=== PATIENT | female | born 1970 | race Caucasian/White ===

== ENCOUNTER 2016-06-09 11:07 | Emergency (ER) | payer BC, OTHER ==
[~2016-06-09] VITALS: Ht 167.6 cm; Wt 87.3 kg
[~2016-06-09 11:07] MED LIST: ALPR-411 PO; ASTN NAE; BUDE32SU3 NAE; BUTA1CAP17 PO; FLAX1CAP11 PO; MELATAB2 PO; MISCCAP80 PO; OMEG10007 PO
[2016-06-09 11:10] VITALS: TEMP 36.4; Ht 167.6 cm; Wt 87.3 kg
[2016-06-09] MEDS ORDERED: MoRPHine SULFATE 4 MG/ML 1 ML CARP\\VIAL IV STA ×4 (12:00→19:55)
[2016-06-09] MEDS ORDERED: SODIUM CHLORIDE 0.9% 1000ML 1,000 ML IV STA ×2 (12:00→16:23)
[2016-06-09] MEDS ORDERED: ONDANSETRON INJ 2 MG/ML 2 ML VIAL IV STA ×2 (12:00→15:02)
[2016-06-09] MEDS ORDERED: ZFR4 PO (12:03)
--- NOTE | 2016-06-09 12:07 | EMERGENCY ROOM VISIT NOTE ---
History First contact with patient: 11:51 Chief Complaint: VOMITING Stated Complaint: VOMITING RECENT SURG. AT [facility] Nursing Triage Summary: pt went for surgey in [place] had gallbladder, bowel reseection with ileostomy. given pain med made her really sick since unable to keep anything down, feels nauseated, sent here for eval of dehydration and possible blockage History of Present Illness The patient is a 46 year old female who presents to the Emergency Room with complaints of abdominal pain and vomiting. The patient states that 5 days ago she underwent elective surgery. The patient was planned to have laparoscopic colon resection for diverticulitis and cholecystectomy. She states that it turned into an open surgery. The patient states that she was discharged 2 days ago. The surgery was performed by Dr. bundy at [facility] in [place]. The patient states that she has had pain and has not been able to take her medication since 2:00 yesterday. She states that she is vomiting and cannot keep anything down. The patient reports diffuse abdominal discomfort and rates her pain a 9/10. She denies any fevers but describes hot flashes which she attributes to menopause. She denies any pain in her chest or trouble breathing. She denies any urinary symptoms. She has noticed increased output into the ileostomy and into the bulb from the drainage tube. Review of Systems A 10 system review of systems was completed with positives and pertinent negatives listed in the HPI. Past Medical/Surgical History Medical Problems: (1) Acute diverticulitis (2) DVT (deep venous thrombosis) (3) Dysfunctional uterine bleeding (4) Endometriosis (5) Gallstones (6) Ovarian cyst (7) Pyelonephritis Surgical Problems: (1) Status post partial hysterectomy Family History Cancer Diabetes mellitus Hypertension Social History Smoking Status: Never Smoker Alcohol Use: occasionally Marital Status: single Occupation Status: employed Current/Historical Medications Scheduled Azelastine Hcl (Astelin Nasal [place]), 1-2 SPRAYS DEVON BID Budesonide (Nasal) (Budesonide Nasal [place]), 1 SPRAY DEVON BID Fish Oil ([place]-3), 1 CAP PO DAILY Flaxseed (Linseed) (Flax Seed Oil), 1 CAP PO DAILY Melatonin (Melatonin Maximum Strengt), 5 MG PO HS Probiotic Product (Probiotic), 1 CAP PO BID Scheduled PRN Alprazolam (Xanax), 0.25 MG PO DAILY PRN for Anxiety Wxoucbscke-Lmxomfvejmuix-Pnbeu (Fioricet), 1-2 CAP PO Q4H PRN for Migraine Ondansetron (Ondansetron HCl), 4 MG PO Q6H PRN for Nausea Allergies Coded Allergies: Oxycodone (Unverified Adverse Reaction, Severe, UPSET STOMACH, 06/09/16) Physical Exam Vital Signs Date Time Temp Pulse Resp B/P Pulse Ox O2 Delivery O2 Flow Rate FiO2 06/09/16 20:04 102 18 152/92 96 Room Air 06/09/16 18:37 107 20 138/96 98 Room Air 06/09/16 17:36 103 18 146/94 96 Room Air 06/09/16 16:06 103 16 139/99 99 Room Air 06/09/16 14:40 86 18 142/100 96 Room Air 06/09/16 13:21 86 18 133/97 99 Room Air 06/09/16 11:10 36.4 65 18 142/73 96 Room Air Physical Exam VITALS: Vitals are noted on the nurse's note and reviewed by myself. Vital signs stable. The patient is afebrile. GENERAL: This is a 46-year-old female, in no acute distress, nondiaphoretic, well-developed well-nourished. SKIN: There is no tenting of the skin. Capillary reflex less than 2 seconds. HEAD: Normocephalic atraumatic. EARS: The external ears are normal in appearance EYES: Pupils equal round and reactive to light and accommodation. Conjunctivae without injection, sclerae without icterus. Extraocular movements intact. NOSE: Patent, turbinates without inflammation or discharge. MOUTH: Mucous membranes moist. Tonsils are not enlarged. Pharynx without erythema or exudate. Uvula midline. Airway patent. Tongue does not deviate. NECK: Supple without nuchal rigidity. No JVD. HEART: Regular rate and rhythm without murmurs gallops or rubs. LUNGS: Clear to auscultation bilaterally without wheezes, rales or rhonchi. No retractions or accessory muscle use. ABDOMEN: There are surgical incisions to the abdomen. There is a midline vertical incision as well as smaller port incisions. Thee are in place in the wound edges are well approximated without erythema, warmth or drainage. There is an ileostomy without significant erythema, warmth or purulent drainage. There is a drainage tube in the left abdomen with serosanguineous drainage in the bulb. Bowel sounds are present 4 quadrants but are slightly hypoactive in the right upper quadrant. The patient has diffuse abdominal tenderness on examination. MUSCULOSKELETAL: No muscle atrophy, erythema, or edema noted. Full range of motion in all extremities. Strength 5/5 throughout. NEURO: Patient was alert and oriented to person place and time. No focal neurological deficits. Medical Decision & Procedures ER Provider Diagnostic Interpretation: CT SCAN OF THE ABDOMEN AND PELVIS WITH IV CONTRAST CLINICAL HISTORY: Generalized abdominal pain. Recent surgery. COMPARISON STUDY: Abdominal CT dated 12/24/2015. TECHNIQUE: Following the IV administration of 92 cc of Optiray 320, CT scan of the abdomen and pelvis is performed from the lung bases to the proximal femora. Images are reviewed in the axial, sagittal, and coronal planes. IV contrast was administered without complication. Automated dose control exposure was utilized. CT DOSE: 584.06 mGy.cm FINDINGS: Lung bases: The heart is normal in size and without pericardial effusion. Linear atelectasis is present at both lung bases. No airspace consolidation is identified typical for pneumonia and there is no pleural effusion. Bilateral breast implants are partially visualized. Liver: The contrast-enhanced liver is enlarged, measuring 19.3 cm in length. The liver demonstrates diminished attenuation consistent with hepatic steatosis. There is no intrahepatic biliary ductal dilatation. The hepatic veins and portal veins are patent. Gallbladder: Surgically absent noting clips in the gallbladder fossa. Trace fluid and stranding is noted in the gallbladder fossa. No organized fluid collection is identified. Spleen: Normal in size and attenuation. Pancreas: Atrophic for age. Adrenal glands: Unremarkable. Kidneys: The contrast enhanced kidneys are normal in size and without hydronephrosis. The kidneys enhance symmetrically. Abdominal vasculature: The abdominal aorta is normal in course and caliber noting scattered foci of atherosclerotic calcification. Bowel: There are postoperative changes from sigmoid colon resection with colocolonic anastomosis. There is a new ostomy in the right lower quadrant. Herniated parastomal fat is identified. The distal ileum and colon are decompressed, and likely extends to the ostomy is a mucous fistula. The proximal small bowel loops are distended and fluid-filled measuring up to 3.7 cm in diameter. The appearance is consistent with a high-grade small bowel obstruction. There is obstruction at the level of the ostomy. There is also an apparent transition point is the left midabdomen on image #251. The appearance is highly concerning for a closed loop obstruction. Trace interloop fluid is noted. No focally thick walled bowel loops are identified. There is no pneumatosis intestinalis or portal venous gas. There is mild diverticulosis of the remaining colon without CT evidence of acute diverticulitis. The appendix is surgically absent. Peritoneum: A peritoneal drain is cough and pelvis from a left ventral pelvic approach. No definite intraperitoneal free air is seen. Mild mesenteric edema is noted in the pelvis. There is a midline surgical incision with skin clips. A previous ostomy site is identified in the right lower quadrant. Foci of gas with stranding stranding in the subcutaneous soft tissues along the right abdominal wall are likely related to recent surgery. Lymphadenopathy: None. Pelvic viscera: Partially decompressed bladder is grossly normal as visualized. The uterus is surgically absent. Bilateral ovarian follicles are noted. Skeletal structures: No lytic or blastic lesions are seen. There is mild lumbosacral spondylosis and scoliosis. Sclerotic changes are noted involving the sacroiliac joints. IMPRESSION: 1. There are postoperative changes from interval cholecystectomy and additional colonic resection with right lower quadrant ostomy as compared 12/24/2015. A surgical drain is present in the pelvis. 2. Findings are consistent with high-grade small bowel obstruction. There is herniated parastomal fat, with obstruction at the level of the ostomy. An additional transition point is identified in the left midabdomen and the appearance is highly concerning for a closed loop obstruction. Surgical consultation is advised. 3. There is trace interloop fluid. No thick walled bowel loops are identified, and there is no pneumatosis intestinalis, portal venous gas, or intraperitoneal free air seen. 4. There is trace fluid and stranding seen in the gallbladder fossa, likely related to recent surgery. No organized fluid collection is identified. 5. Hepatomegaly and hepatic steatosis. 6. Additional findings as above. ABDOMEN 2VIEW W/PA CHEST RTN CLINICAL HISTORY: abdominal pain, recent surgery pain. Nausea. COMPARISON STUDY: 03/15/2016 FINDINGS: Mild bibasilar atelectasis. Lungs otherwise are clear. Diaphragms are smooth. Postoperative changes are identified in the midline of the pelvis. Appears be right-sided ostomy. 3 drainage catheter overlying the mid sacral region. IMPRESSION: 1. Postoperative ileus versus partial distal small bowel obstruction. 2. Operative changes to the pelvic region centrally. 3. Mild right basilar pulmonary atelectasis Laboratory Results 06/09/16 11:50 Red Blood Count 4.82, Mean Corpuscular Volume 87.6, Mean Corpuscular Hemoglobin 30.1, Mean Corpuscular Hemoglobin Concent 34.4, Mean Platelet Volume 9.2, Neutrophils (%) (Auto) 60.5, Lymphocytes (%) (Auto) 21.6, Monocytes (%) (Auto) 10.8, Eosinophils (%) (Auto) 6.4, Basophils (%) (Auto) 0.3, Neutrophils # (Auto ) 6.54, Lymphocytes # (Auto) 2.33, Monocytes # (Auto) 1.17, Eosinophils # (Auto ) 0.69, Basophils # (Auto) 0.03 06/09/16 11:50 Test 06/09/16 11:50 06/09/16 12:25 06/09/16 14:00 White Blood Count 10.80 K/uL (4.8-10.8) Red Blood Count 4.82 M/uL (4.2-5.4) Hemoglobin 14.5 g/dL (12.0-16.0) Hematocrit 42.2 % (37-47) Mean Corpuscular Volume 87.6 fL (80-100) Mean Corpuscular Hemoglobin 30.1 pg (25-34) Mean Corpuscular Hemoglobin Concent 34.4 g/dl (32-36) Platelet Count 451 K/uL (130-400) Mean Platelet Volume 9.2 fL (7.4-10.4) Neutrophils (%) (Auto) 60.5 % Lymphocytes (%) (Auto) 21.6 % Monocytes (%) (Auto) 10.8 % Eosinophils (%) (Auto) 6.4 % Basophils (%) (Auto) 0.3 % Neutrophils # (Auto) 6.54 K/uL (1.4-6.5) Lymphocytes # (Auto) 2.33 K/uL (1.2-3.4) Monocytes # (Auto) 1.17 K/uL (0.11-0.59) Eosinophils # (Auto) 0.69 K/uL (0-0.5) Basophils # (Auto) 0.03 K/uL (0-0.2) RDW Standard Deviation 40.6 fL (36.4-46.3) RDW Coefficient of Variation 12.5 % (11.5-14.5) Immature Granulocyte % (Auto) 0.4 % Immature Granulocyte # (Auto) 0.04 K/uL (0.00-0.02) Prothrombin Time 10.6 SECONDS (9.0-12.0) Prothromb Time International Ratio 1.0 (0.9-1.1) Activated Partial Thromboplast Time 27.8 SECONDS (21.0-31.0) Partial Thromboplastin Ratio 1.1 Anion Gap 11.0 mmol/L (3-11) Est Creatinine Clear Calc Drug Dose 77.4 ml/min Estimated GFR () 77.7 Estimated GFR (Non- 67.0 BUN/Creatinine Ratio 11.2 (10-20) Calcium Level 10.5 mg/dl (8.5-10.1) Total Bilirubin 0.7 mg/dl (0.2-1) Aspartate Amino Transf (AST/SGOT) 63 U/L (15-37) Alanine Aminotransferase (ALT/SGPT) 101 U/L (12-78) Alkaline Phosphatase 103 U/L (45-117) Total Protein 7.7 gm/dl (6.4-8.2) Albumin 3.4 gm/dl (3.4-5.0) Globulin 4.3 gm/dl (2.5-4.0) Albumin/Globulin Ratio 0.8 (0.9-2) Lipase 92 U/L (73-393) Lactic Acid Level 1.6 mmol/L (0.4-2.0) Urine Color YELLOW Urine Appearance CLEAR (CLEAR) Urine pH 6.5 (4.5-7.5) Urine Specific [place] 1.000 (1.000-1.030) Urine Protein NEG (NEG) Urine Glucose (UA) NEG (NEG) Urine Ketones NEG (NEG) Urine Occult Blood NEG (NEG) Urine Nitrite NEG (NEG) Urine Bilirubin NEG (NEG) Urine Urobilinogen NEG (NEG) Urine Leukocyte Esterase NEG (NEG) Medications Administered Medications (Trade) Dose Ordered Sig/Nel Route Start Time Stop Time Status Last Admin Dose Admin Sodium Chloride (Nss 1000ml) 1,000 ml @ 999 mls/hr Q1H1M STAT IV 06/09/16 12:00 06/09/16 15:16 DC 1/30/17 12:03 999 MLS/HR Morphine Sulfate (MoRPHine SULFATE INJ) 4 mg NOW STAT IV 06/09/16 12:00 06/09/16 15:15 DC 06/09/16 12:10 4 MG Ondansetron HCl (Zofran Inj) 4 mg NOW STAT IV 06/09/16 12:00 06/09/16 15:15 DC 06/09/16 12:10 4 MG Morphine Sulfate (MoRPHine SULFATE INJ) 4 mg NOW STAT IV 06/09/16 15:02 06/09/16 15:19 DC 06/09/16 15:14 4 MG Ondansetron HCl (Zofran Inj) 4 mg NOW STAT IV 06/09/16 15:02 06/09/16 15:19 DC 06/09/16 15:13 4 MG Lorazepam 0.5 mg 0.5 mg NOW STAT IV 06/09/16 16:08 06/09/16 16:09 DC 06/09/16 16:15 0.5 MG Sodium Chloride (Nss 1000ml) 1,000 ml @ 999 mls/hr Q1H1M STAT IV 06/09/16 16:23 06/09/16 17:23 DC 06/09/16 17:15 999 MLS/HR Morphine Sulfate (MoRPHine SULFATE INJ) 4 mg NOW STAT IV 06/09/16 17:38 06/09/16 17:39 DC 06/09/16 17:51 4 MG Morphine Sulfate (MoRPHine SULFATE INJ) 4 mg NOW STAT IV 06/09/16 19:55 06/09/16 19:56 DC 06/09/16 20:02 4 MG ED Course The patient was seen and examined. Previous visits were reviewed. The patient does not have a fever or leukocytosis. She does not have any significant electrolyte abnormality. Lactic acid was not elevated. Lipase was not elevated. INR was 1.0. Urinalysis was negative. Plain films of the abdomen suggests ileus versus partial small bowel obstruction CT scan of the abdomen and pelvis with IV contrast and a small amount of oral contrast (as much as the patient could tolerate) was obtained and reveals high- grade bowel obstruction as above The patient was hydrated with normal saline 2 L She was given a total of 4 doses of 4 mg IV morphine She was given a total of 2 doses of 0.5 mg IV Ativan She was given 2 doses of 4 mg IV Zofran I discussed the case with Dr. Gracia of general surgery at [facility]. She accepts the patient in transfer. We are waiting on a bed assignment. She also asked that the CT scan be uploaded to the [employer] system. I discussed this with the oil burner technician who referred me to the secretaries. I discussed this with the front office secretary who stated she would upload the CT scan. I again spoke with Dr. Gracia who called back to discuss the patient. She recommends attempting to pass a red rubber catheter through the stoma to help decompress at this end. I discussed this with my attending physician; we felt slightly uncomfortable with this procedure. I again called Dr. Gracia who requested that the decompression be attempted and she also spoke with Dr. Queen. At this time, I planned to attempt to pass the catheter as discussed. I gathered all of the materials and discussed this with the patient. At this time, the patient is hesitant and does not want me to remove the ostomy bag. She is concerned that we will not be able to get the ostomy bag back on in the proper position. She refuses to allow me to remove it and does not want me to attempt to pass the catheter through it. I advised her that Gen. surgery at [facility] would like this to be attempted but she again is hesitant and would prefer to wait until she got to [facility]. At this time, EMS has arrived to take the patient to [place]. The case was discussed with Dr. Queen who agrees with the assessment and treatment plan Medical Decision DIFFERENTIAL DIAGNOSIS: Hepatitis, cholecystitis, cholangitis, biliary colic, pancreatitis, pneumonia, subdiaphragmatic abscess, appendicitis, inguinal hernia , nephrolithiasis, inflammatory bowel disease, mesenteric adenitis, peptic ulcer disease, GERD, gastritis, pancreatitis, myocardial infarction, pericarditis, ruptured aortic aneurysm, appendicitis, gastroenteritis, bowel obstruction, splenic infarct, diverticulitis, mesenteric ischemia, metabolic, peritonitis, among others. [place] Drug Monitoring Program Search Results: patient reviewed within database, no issues identified Impression Primary Impression: Postoperative intestinal obstruction Departure Information Referrals Vannesa Jonas DO (PCP) Patient Instructions [facility]
[2016-06-09 12:12] LABS: BASO % 0.3 %; BASO ABS # 0.03 K/uL (0-0.2); COMPLETE YES; EOS % 6.4 %; HEMATOCRIT 42.2 % (37-47); IG% 0.4 %; LYMPH % 21.6 %; LYMPH ABS # 2.33 K/uL (1.2-3.4); MEAN CELL VOLUME 87.6 fL (80-100); MEAN CORPUSCULAR HEMOGLOBIN 30.1 pg (25-34); MEAN CORPUSCULAR HGB CONC 34.4 g/dl (32-36); MEAN PLATELET VOLUME 9.2 fL (7.4-10.4); MONO % 10.8 %; NEUT % 60.5 %; PLATELET COUNT 451 K/uL (130-400); RED BLOOD COUNT 4.82 M/uL (4.2-5.4)
[2016-06-09 12:22] LABS: PARTIAL THROMBOPLASTIN RATIO 1.1; PROTHROMBIN TIME (PATIENT) 10.6 SECONDS (9.0-12.0)
[2016-06-09 12:25] LABS: BUN/CREATININE RATIO 11.2 (10-20); CALCIUM 10.5 mg/dl (8.5-10.1); POTASSIUM 3.7 mmol/L (3.5-5.1)
[2016-06-09 12:28] LABS: ALB/GLOB RATIO 0.8 (0.9-2)
--- NOTE | 2016-06-09 12:40 | DIAGNOSTIC IMAGING REPORT ---
ABDOMEN 2VIEW W/PA CHEST RTN CLINICAL HISTORY: abdominal pain, recent surgery pain. Nausea. COMPARISON STUDY: 03/15/2016 FINDINGS: Mild bibasilar atelectasis. Lungs otherwise are clear. Diaphragms are smooth. Postoperative changes are identified in the midline of the pelvis. Appears be right-sided ostomy. 3 drainage catheter overlying the mid sacral region. IMPRESSION: 1. Postoperative ileus versus partial distal small bowel obstruction. 2. Operative changes to the pelvic region centrally. 3. Mild right basilar pulmonary atelectasis Electronically signed by: Rafael Stevens M.D. 06/09/2016 12:39 PM Dictated Date/Time: 06/09/2016 12:38 PM
[2016-06-09] MEDS ORDERED: OPTIRAY 320 IV PRN (12:45)
[2016-06-09 14:34] LABS: URINE APPEARANCE CLEAR (CLEAR); URINE BILIRUBIN NEG (NEG); URINE COLOR YELLOW; URINE NITRITE NEG (NEG); URINE PH 6.5 (4.5-7.5); UROBILINOGEN NEG (NEG); ZZUR CULT IF INDIC CLEAN CATCH NO
[2016-06-09 14:38] LABS: MANUAL MICROSCOPIC REQUIRED? NO; REVIEW REQ? NO
--- NOTE | 2016-06-09 15:25 | DIAGNOSTIC IMAGING REPORT ---
CT SCAN OF THE ABDOMEN AND PELVIS WITH IV CONTRAST CLINICAL HISTORY: Generalized abdominal pain. Recent surgery. COMPARISON STUDY: Abdominal CT dated 12/24/2015. TECHNIQUE: Following the IV administration of 92 cc of Optiray 320, CT scan of the abdomen and pelvis is performed from the lung bases to the proximal femora. Images are reviewed in the axial, sagittal, and coronal planes. IV contrast was administered without complication. Automated dose control exposure was utilized. CT DOSE: 584.06 mGy.cm FINDINGS: Lung bases: The heart is normal in size and without pericardial effusion. Linear atelectasis is present at both lung bases. No airspace consolidation is identified typical for pneumonia and there is no pleural effusion. Bilateral breast implants are partially visualized. Liver: The contrast-enhanced liver is enlarged, measuring 19.3 cm in length. The liver demonstrates diminished attenuation consistent with hepatic steatosis. There is no intrahepatic biliary ductal dilatation. The hepatic veins and portal veins are patent. Gallbladder: Surgically absent noting clips in the gallbladder fossa. Trace fluid and stranding is noted in the gallbladder fossa. No organized fluid collection is identified. Spleen: Normal in size and attenuation. Pancreas: Atrophic for age. Adrenal glands: Unremarkable. Kidneys: The contrast enhanced kidneys are normal in size and without hydronephrosis. The kidneys enhance symmetrically. Abdominal vasculature: The abdominal aorta is normal in course and caliber noting scattered foci of atherosclerotic calcification. Bowel: There are postoperative changes from sigmoid colon resection with colocolonic anastomosis. There is a new ostomy in the right lower quadrant. Herniated parastomal fat is identified. The distal ileum and colon are decompressed, and likely extends to the ostomy is a mucous fistula. The proximal small bowel loops are distended and fluid-filled measuring up to 3.7 cm in diameter. The appearance is consistent with a high-grade small bowel obstruction. There is obstruction at the level of the ostomy. There is also an apparent transition point is the left midabdomen on image #251. The appearance is highly concerning for a closed loop obstruction. Trace interloop fluid is noted. No focally thick walled bowel loops are identified. There is no pneumatosis intestinalis or portal venous gas. There is mild diverticulosis of the remaining colon without CT evidence of acute diverticulitis. The appendix is surgically absent. Peritoneum: A peritoneal drain is cough and pelvis from a left ventral pelvic approach. No definite intraperitoneal free air is seen. Mild mesenteric edema is noted in the pelvis. There is a midline surgical incision with skin clips. A previous ostomy site is identified in the right lower quadrant. Foci of gas with stranding stranding in the subcutaneous soft tissues along the right abdominal wall are likely related to recent surgery. Lymphadenopathy: None. Pelvic viscera: Partially decompressed bladder is grossly normal as visualized. The uterus is surgically absent. Bilateral ovarian follicles are noted. Skeletal structures: No lytic or blastic lesions are seen. There is mild lumbosacral spondylosis and scoliosis. Sclerotic changes are noted involving the sacroiliac joints. IMPRESSION: 1. There are postoperative changes from interval cholecystectomy and additional colonic resection with right lower quadrant ostomy as compared 12/24/2015. A surgical drain is present in the pelvis. 2. Findings are consistent with high-grade small bowel obstruction. There is herniated parastomal fat, with obstruction at the level of the ostomy. An additional transition point is identified in the left midabdomen and the appearance is highly concerning for a closed loop obstruction. Surgical consultation is advised. 3. There is trace interloop fluid. No thick walled bowel loops are identified, and there is no pneumatosis intestinalis, portal venous gas, or intraperitoneal free air seen. 4. There is trace fluid and stranding seen in the gallbladder fossa, likely related to recent surgery. No organized fluid collection is identified. 5. Hepatomegaly and hepatic steatosis. 6. Additional findings as above. Electronically signed by: Juan Sequeira M.D. 06/09/2016 3:23 PM Dictated Date/Time: 06/09/2016 3:00 PM
[2016-06-09] MEDS ORDERED: LORAZEPAM 2 MG/ML 1 ML VIAL IV STA ×2 (16:08→20:29)
[2016-06-09 21:00] VITALS: BP 124/84; PULSE 118; O2SAT 97
== END 2016-06-09 21:00 | disposition short-term general hospital (02) ==
LOC: C.EDB 11:09 → C.EDC 21:00
DX: K91.3 Postprocedural intestinal obstruction (principal); Z90.49 Acquired absence of other specified parts of digestive tract; Z87.19 Personal history of other diseases of the digestive system; Z93.2 Ileostomy status; Z86.718 Personal history of other venous thrombosis and embolism; Z83.3 Family history of diabetes mellitus; Z82.49 Family history of ischemic heart disease and other diseases of the circulatory system

== ENCOUNTER → 2017-02-03 | Outpatient (CLI) | payer OTHER ==
[~2017-02-03] MED LIST changes: +ACET650S10 PO; +ADAP0.1C5 TOP; +CLOT1CRE20 TOP; +DIPH25CA65 PO; +DOXY100C76 PO; +MULT-506 PO; +OPTIRAY 320 IV PRN; +OXYC-57 PO; +OXYCODONE/ACETAMINOPHEN 5-325 TAB ONE; +VENL150T33 PO; +ZFR4 PO
--- NOTE | 2017-02-03 07:22 | DIAGNOSTIC IMAGING REPORT ---
ABD/PELVIS IV AND ORAL CONT CT DOSE: 575.97 mGy.cm HISTORY: Pain. Hernia. R10.9 Abdominal painK46.9 Abdominal hernia TECHNIQUE: Multiaxial CT images of the abdomen and pelvis were performed following the use of intravenous and oral contrast. A dose lowering technique was utilized adhering to the principles of ALARA. COMPARISON STUDY: 06/09/2016 FINDINGS: Lung bases are clear. Mild fatty infiltration of liver. Spleen pancreas are uniform. Intrarenal glands unremarkable. Kidneys enhance uniformly. Patient is status post cholecystectomy. Small bowel shows no evidence for significant distention. There has been a reversal of a right-sided ostomy. Drainage catheters previously in place] removed. There is a patent anastomotic line in the mid sigmoid. There is a mild increase in fecal load within the transverse colon. There are no obstructive changes. Bladder is midline. There is slight bladder wall thickening. There is small fat-containing periumbilical hernia. There are findings of a prior appendectomy and cholecystectomy. IMPRESSION: 1. No acute process of the abdomen or pelvis. 2. Interval reversal of a right sided ostomy 3. Findings of a prior appendectomy as well as cholecystectomy. 4. Small fat-containing right periumbilical hernia. No evidence of bowel containment or obstruction. The above report was generated using voice recognition software. It may contain grammatical, syntax or spelling errors. Electronically signed by: Rafael Stevens M.D. 02/03/2017 7:21 AM Dictated Date/Time: 02/03/2017 7:10 AM
== END | disposition home or self-care (01) ==
LOC: C.CTS 06:39
PROVIDERS: ATTEND Surgery
DX: R10.9 Unspecified abdominal pain (principal); K42.9 Umbilical hernia without obstruction or gangrene

== ENCOUNTER → 2017-02-18 | Day surgery (SDC) | payer OTHER ==
[2017-02-11 08:27] VITALS: BMI 32.0
--- NOTE | 2017-02-11 09:03 | PAT Medication Instructions ---
Service Date Feb 11, 2017. Current Home Medication List Acetaminophen (Tylenol), 2 TAB PO QID PRN for Pain Adapalene (Differin), 1 APPLN TOP HS Alprazolam (Xanax), 0.25 MG PO DAILY PRN for Anxiety Azelastine Hcl (Astelin Nasal [place]), 1-2 SPRAYS DEVON BID Budesonide (Nasal) (Budesonide Nasal [place]), 1 SPRAY DEVON BID Jdgipfgdni-Tpamuzukvofev-Ykvct (Fioricet), 1-2 CAP PO Q4H PRN for Migraine Clotrimazole (Topical) (Clotrimazole Af), 1 DOSE TOP DAILY Diphenhydramine Hcl (Benadryl Allergy), 1 CAP PO HS PRN for Sleep Flaxseed (Linseed) (Flax Seed Oil), 1 CAP PO QPM Melatonin (Melatonin Maximum Strengt), 5 MG PO HS Multivitamin (Multivitamin), 1 TAB PO QAM Ondansetron (Ondansetron HCl), 4 MG PO Q6H PRN for Nausea Probiotic Product (Probiotic), 1 CAP PO QAM Venlafaxine Hcl (Venlafaxine Hcl Er), 1 TAB PO QAM Medication Instructions For Your Scheduled Surgery - Hold the following medications 24 hours prior to surgery: Clotrimazole (Topical) (Clotrimazole Af), 1 DOSE TOP DAILY Adapalene (Differin), 1 APPLN TOP HS - Hold the following medications the morning of surgery: Probiotic Product (Probiotic), 1 CAP PO QAM Multivitamin (Multivitamin), 1 TAB PO QAM Xjslrrsjum-Gwdobgdpypshh-Zjhiy (Fioricet), 1-2 CAP PO Q4H PRN for Migraine - Take the following medications the morning of surgery with a sip of water: Venlafaxine Hcl (Venlafaxine Hcl Er), 1 TAB PO QAM Ondansetron (Ondansetron HCl), 4 MG PO Q6H PRN for Nausea Budesonide (Nasal) (Budesonide Nasal [place]), 1 SPRAY DEVON BID Azelastine Hcl (Astelin Nasal [place]), 1-2 SPRAYS DEVON BID Alprazolam (Xanax), 0.25 MG PO DAILY PRN for Anxiety Acetaminophen (Tylenol), 2 TAB PO QID PRN for Pain (if needed up to four hours before surgery) - Take the following medications as scheduled the night before surgery: Ondansetron (Ondansetron HCl), 4 MG PO Q6H PRN for Nausea Melatonin (Melatonin Maximum Strengt), 5 MG PO HS Diphenhydramine Hcl (Benadryl Allergy), 1 CAP PO HS PRN for Sleep Budesonide (Nasal) (Budesonide Nasal [place]), 1 SPRAY DEVON BID Azelastine Hcl (Astelin Nasal [place]), 1-2 SPRAYS DEVON BID Alprazolam (Xanax), 0.25 MG PO DAILY PRN for Anxiety Flaxseed (Linseed) (Flax Seed Oil), 1 CAP PO QPM If you have any questions please call us at [phone] or [phone] or [phone]
[2017-02-11 10:19] LABS: BASO % 1.5 %; BASO ABS # 0.09 K/uL (0-0.2); COMPLETE YES; EOS % 4.8 %; HEMATOCRIT 43.7 % (37-47); LYMPH % 35.8 %; LYMPH ABS # 2.11 K/uL (1.2-3.4); MEAN CELL VOLUME 91.6 fL (80-100); MEAN CORPUSCULAR HEMOGLOBIN 28.5 pg (25-34); MEAN CORPUSCULAR HGB CONC 31.1 g/dl (32-36); MEAN PLATELET VOLUME 9.7 fL (7.4-10.4); MONO % 6.8 %; NEUT % 51.1 %; PLATELET COUNT 293 K/uL (130-400); RED BLOOD COUNT 4.77 M/uL (4.2-5.4); WHITE BLOOD COUNT 5.89 K/uL (4.8-10.8)
[2017-02-11 10:31] LABS: BUN/CREATININE RATIO 18.3 (10-20); CALCIUM 9.5 mg/dl (8.5-10.1); CREATININE 0.77 mg/dl (0.60-1.20); POTASSIUM 4.1 mmol/L (3.5-5.1)
[~2017-02-18] VITALS: Ht 167.6 cm; Wt 90.7 kg
[~2017-02-18] MED LIST changes: +ATROPINE SULFATE 0.1 MG/ML 5ML SYR IV PRN; +BUPIVACAINE 0.5 % 5 MG/1 ML MPF 30ML VIAL ONE; +BUPIVACAINE LIPOSOME 1/3% 266 MG/20 ML VIAL INFIL ONE; +CEFAZOLIN 2000 MG/60 ML D5W IV SCH; +DEXAMETHASONE SOD INJ 4 MG/ML VIAL ONE; +EpHEDrine SULFATE INJ 50 MG/ML AMP IV PRN; +EpHEDrine SULFATE INJ 50 MG/ML AMP ONE; +FENTANYL CITRATE INJ 50 MCG/1 ML 2 ML VIAL ONE; +GLYCOPYRROLATE INJ 0.2 MG/ML VIAL ONE; +HYDROmorphone INJ 1 MG/ML SYR IV PRN; +KETOROLAC TROMETHAMINE 30 MG/ML VIAL IV. PRN; +LABETALOL HCL IV 5 MG/ML 20ML IV PRN; +LACTATED RINGER'S 1000ML 1,000 ML IV SCH; +MEPERIDINE HCL 25 MG/ML CARP IV PRN; +MIDAZOLAM HCL 1 MG/ML 2ML VIAL ONE; +MoRPHine SULFATE 4 MG/ML 1 ML CARP\\VIAL IV PRN; +NEOSTIGMINE METHYLSULFATE 5 MG/5 ML SYR ONE; -OMEG10007 PO; +ONDANSETRON INJ 2 MG/ML 2 ML VIAL IV PRN; +ONDANSETRON INJ 2 MG/ML 2 ML VIAL ONE; -OPTIRAY 320 IV PRN; -OXYCODONE/ACETAMINOPHEN 5-325 TAB ONE; +OXYCODONE/ACETAMINOPHEN 5-325 TAB PO PRN; +PROPOFOL IV EMULSION 10 MG/ML 20 ML VIAL IV ONE; +ROCURONIUM BROMIDE 10 MG/ML 5 ML VIAL IV ONE; +SODIUM CHLORIDE 0.9% PF 50 ML VIAL ONE; +WATER, STERILE FOR INJ 10 ML VIAL ONE
[2017-02-18 07:54] VITALS: BP 140/95; PULSE 79; TEMP 36.8; O2SAT 98; BMI 32.0
[2017-02-18 08:17] VITALS: BP 140/95; TEMP 36.8; O2SAT 98; Ht 167.6 cm; Wt 90.7 kg
--- NOTE | 2017-02-18 08:39 | History & Physical Bridge Note ---
H&P Re-Evaluation Bridge Note: I have examined the patient, reviewed the History & Physical and in the interval since the performance of the History & Physical I have noted the following changes of clinical significance: No changes noted
--- NOTE | 2017-02-18 11:53 | Discharge Instructions ---
Discharge Instructions Date of Service Feb 18, 2017. Admission Reason for Admission: Incisional Hernia, Epigastric Hernia Discharge Discharge Diagnosis / Problem: repair of incisional hernias Discharge Goals Goal(s): Decrease discomfort Activity Recommendations Activity Limitations: as noted below Lifting Limitations: no more than 10 pounds Shower/Bathe: tomorrow Driving or Machine Use: 1 week . Instructions / Follow-Up Instructions / Follow-Up Dr. Rodríguez in 1-2 weeks as planned, call [phone] for any questions Current Hospital Diet Patient's current hospital diet: Discharge Diet Recommended Diet: Regular Diet Procedures Procedures Performed: Recurrent Epigastric and Recurrent Incisional Hernia Repairs, with Mesh Pending Studies Studies pending at discharge: no Medical Emergencies . Who to Call and When: Medical Emergencies: If at any time you feel your situation is an emergency, please call 911 immediately. . Non-Emergent Contact Non-Emergency issues call your: Surgeon Call Non-Emergent contact if: you have a fever, temperature is above 101.5, your pain is not controlled, wound has increased redness, you have any medication questions . "Provider Documentation" section prepared by Maged Lewis. . VTE Core Measure Inpt VTE Proph given/why not?: SCD's
--- NOTE | 2017-02-18 12:02 | [facility] Post Operative Brief Note ---
Immediate Operative Summary Operative Date Feb 18, 2017. Pre-Operative Diagnosis Incisional Hernia, Epigastric Hernia. Post-Operative Diagnosis Incisional Hernia, Epigastric Hernia. Procedure(s) Performed Epigastric and Recurrent Incisional Hernia Repairs, with Mesh Surgeon Postal Carrier Surgeon(s) Addison Lewis PA-C Estimated Blood Loss 7 ml Findings 2 defects at epigastric port site, combined and 4.3 cm cqur mesh placed. Inferior defect 5x3cm, polypropylene mesh sown into preperitoneal space, fascia closed. Small umbilical defect closed and covered by mesh. Exparel injected into fascia. Specimens No pathology specimens per surgeon Drains none Anesthesia GETA Complication(s) None Disposition Recovery Room / PACU
--- NOTE | 2017-02-18 12:19 | [facility] Operative Report ---
Operative Report Operative Date Feb 18, 2017. Pre-Operative Diagnosis Incisional Hernia, Epigastric Hernia. Post-Operative Diagnosis epigastric hernia, recurrent incisional hernia Procedure(s) Performed epigastric and recurrent incisional hernia repairs with mesh Surgeon Reservoir Engineering Manager Surgeon(s) Addison Lewis PA-C Estimated Blood Loss 7 ml Findings 2 defects at epigastric port site, combined and 4.3 cm cqur mesh placed. Inferior defect 5x3cm, polypropylene mesh sown into preperitoneal space, fascia closed. Small umbilical defect closed and covered by mesh. Exparel injected into fascia. Specimens No pathology specimens per surgeon Drains none Anesthesia GETA Complication(s) None Disposition Recovery Room / PACU Indications 47 year old female with multiple prior abdominal surgeries, now with epigastric port site hernia and recurrent low midline incisional hernia. Plan for epigastric and recurrent incisional hernia repairs, possible laparoscopic catering assistant. The risks of the procedure were discussed, all questions were answered, and the patient agreed to proceed with surgery as planned. Description of Procedure The patient was properly identified, consented, and taken to the operating room where she was placed in the supine position. General endotracheal anesthesia was induced. SCDs and a safety belt were placed. Preoperative antibiotics were administered. The patient's abdomen was prepped and draped in the standard sterile fashion. Surgical timeout was performed and all parties were in agreement that this was the correct patient and procedure to be performed and we continued as planned. We addressed the epigastric hernia first. The transverse scar was excised and the incision was deepened down to the fascia. A 1 cm fascial defect was encountered. An additional 1 cm fascial defect was encountered just inferior to the other defect, and the 5mm fascial bridge was divided to combine the defects. The hernia was reduced. The fascia anteriorly and posteriorly was cleared of investing tissue for several centimeters. Hemostasis was achieved within the wound. A 4.3 cm c-qur mesh was sown into place with interrupted 0 Nurolon sutures in a clockwise fashion, and the fascia was closed with 0 nurolon interrupted sutures. Attention then turned to the low midline incisional hernia. The superior portion of the vertical midline scar was excised and the incision was deepened down to the fascia. A 5x3 cm fascial defect was encountered. The hernia sac was dissected away from the surrounding tissue and reduced. The small defect in the peritoneum was closed with running 3-0 vicryl suture. The umbilical stalk was divided below the level of the skin. The fascia posteriorly was cleared of investing tissue for several centimeters, being careful to stay out of the peritoneum. Flaps were raised for several centimeters anterior to the fascia until the fascia could be approximated with minimal tension. Hemostasis was achieved within the wound. A 10x5cm piece of polypropylene mesh was sown into the retro-fascial, pre-peritoneal space. It was secured to the fascia with interrupted 0 nurolon sutures in a clockwise fashion. The fascia was closed with interrupted figure of eight 0 Nurolon sutures. The wounds were irrigated and hemostasis confirmed. The umbilicus was tacked down to the fascia with 3-0 Vicryl suture. Exparel was injected in the fascia and along the skin incisions. The skin was closed with interrupted 3-0 Vicryl deep dermal sutures, followed by nancy. Sterile dressing were placed over the wounds. An abdominal binder was placed. The patient was extubated in the operating room and taken to the PACU where she recovered without apparent incident. All sponge, instrument and needle counts were correct at the conclusion of the procedure. The patient tolerated the procedure well. I attest to the content of the Intraoperative Record and any orders documented therein. Any exceptions are noted below.
[2017-02-18] MEDS: FENTANYL CITRATE INJ 50 MCG/1 ML 2 ML VIAL IV PRN ×4 (12:23→12:39)
[2017-02-18 13:10] VITALS: BP 120/65; PULSE 98; TEMP 36.5; O2SAT 98
--- NOTE | 2017-02-18 13:24 | Anesthesiology Progress Note ---
Anesthesia Post Op Note Date & Time Feb 18, 2017 at 13:24 Vital Signs Pain Intensity: 4 Vital Signs Past 12 Hours Date Time Temp Pulse Resp B/P (MAP) Pulse Ox O2 Delivery O2 Flow Rate FiO2 02/18/17 13:00 36.2 80 12 125/68 100 Room Air 02/18/17 12:50 102 13 120/72 97 Room Air 02/18/17 12:40 91 18 125/80 98 Room Air 02/18/17 12:30 83 16 115/85 99 Oxymask 10 02/18/17 12:20 103 15 131/79 100 Oxymask 10 02/18/17 12:10 36.2 100 18 129/80 100 Oxymask 10 02/18/17 12:10 113 14 143/72 100 Oxymask 10 02/18/17 08:17 36.8 16 140/95 (110) 98 Room Air 02/18/17 07:54 36.8 79 16 140/95 (110) 98 Room Air Notes Mental Status: alert / awake / arousable, participated in evaluation Pt Amnestic to Procedure: Yes Nausea / Vomiting: adequately controlled Pain: adequately controlled Airway Patency, RR, SpO2: stable & adequate BP & HR: stable & adequate Hydration State: stable & adequate Anesthetic Complications: no major complications apparent
[2017-02-18 13:40] VITALS: BP 135/80; PULSE 100; O2SAT 99
[2017-02-18 14:10] VITALS: BP 157/83; PULSE 92; TEMP 36.7; O2SAT 99
== END | disposition home or self-care (01) ==
LOC: C.ACU 07:08
PROVIDERS: ATTEND Surgery
DX: K43.9 Ventral hernia without obstruction or gangrene (principal); K43.2 Incisional hernia without obstruction or gangrene; E66.9 Obesity, unspecified; Z87.891 Personal history of nicotine dependence; Z86.718 Personal history of other venous thrombosis and embolism; Z68.32 Body mass index [BMI] 32.0-32.9, adult; Z90.89 Acquired absence of other organs; Z98.890 Other specified postprocedural states; Z90.710 Acquired absence of both cervix and uterus; Z98.818 Other dental procedure status; Z81.1 Family history of alcohol abuse and dependence; Z80.8 Family history of malignant neoplasm of other organs or systems; Z83.3 Family history of diabetes mellitus; Z82.49 Family history of ischemic heart disease and other diseases of the circulatory system

== ENCOUNTER 2017-03-20 09:12 | Inpatient (IN) | payer OTHER ==
[2017-03-20] VITALS (8 sets, daily range): BP systolic 125–144; BP diastolic 74–88; PULSE 67–115; TEMP 37–37.1; O2SAT 94–99; Ht 167.6 cm; Wt 90.7 kg
[~2017-03-20] VITALS: Ht 167.6 cm; Wt 90.7 kg
[~2017-03-20 09:12] MED LIST changes: -ACET650S10 PO; -ATROPINE SULFATE 0.1 MG/ML 5ML SYR IV PRN; -BUPIVACAINE 0.5 % 5 MG/1 ML MPF 30ML VIAL ONE; -BUPIVACAINE LIPOSOME 1/3% 266 MG/20 ML VIAL INFIL ONE; -CEFAZOLIN 2000 MG/60 ML D5W IV SCH; -DEXAMETHASONE SOD INJ 4 MG/ML VIAL ONE; -EpHEDrine SULFATE INJ 50 MG/ML AMP IV PRN; -EpHEDrine SULFATE INJ 50 MG/ML AMP ONE; -FENTANYL CITRATE INJ 50 MCG/1 ML 2 ML VIAL ONE; -GLYCOPYRROLATE INJ 0.2 MG/ML VIAL ONE; -HYDROmorphone INJ 1 MG/ML SYR IV PRN; -KETOROLAC TROMETHAMINE 30 MG/ML VIAL IV. PRN; -LABETALOL HCL IV 5 MG/ML 20ML IV PRN; -MEPERIDINE HCL 25 MG/ML CARP IV PRN; -MIDAZOLAM HCL 1 MG/ML 2ML VIAL ONE; -MoRPHine SULFATE 4 MG/ML 1 ML CARP\\VIAL IV PRN; -NEOSTIGMINE METHYLSULFATE 5 MG/5 ML SYR ONE; -ONDANSETRON INJ 2 MG/ML 2 ML VIAL IV PRN; -ONDANSETRON INJ 2 MG/ML 2 ML VIAL ONE; -OXYCODONE/ACETAMINOPHEN 5-325 TAB PO PRN; -PROPOFOL IV EMULSION 10 MG/ML 20 ML VIAL IV ONE; -ROCURONIUM BROMIDE 10 MG/ML 5 ML VIAL IV ONE; -SODIUM CHLORIDE 0.9% PF 50 ML VIAL ONE; -WATER, STERILE FOR INJ 10 ML VIAL ONE
[2017-03-20] MEDS ORDERED: SULF1TAB92 PO (09:39)
[2017-03-20] MEDS ORDERED: FENTANYL CITRATE INJ 50 MCG/1 ML 2 ML VIAL IV PRN (10:00)
[2017-03-20] MEDS ORDERED: ONDANSETRON INJ 2 MG/ML 2 ML VIAL IV PRN (10:00)
[2017-03-20] MEDS ORDERED: ATROPINE SULFATE 0.1 MG/ML 5ML SYR IV PRN (10:00)
[2017-03-20] MEDS ORDERED: EpHEDrine SULFATE INJ 50 MG/ML AMP IV PRN (10:00)
[2017-03-20] MEDS ORDERED: ONDANSETRON INJ 2 MG/ML 2 ML VIAL ONE (10:11)
[2017-03-20] MEDS ORDERED: PROPOFOL IV EMULSION 10 MG/ML 20 ML VIAL IV ONE (10:11)
[2017-03-20] MEDS ORDERED: FENTANYL CITRATE INJ 50 MCG/1 ML 2 ML VIAL ONE ×3 (10:11→16:36)
[2017-03-20] MEDS ORDERED: LIDOCAINE HCL 2% 2 ML VIAL (20MG/ML) ONE (10:11)
[2017-03-20] MEDS ORDERED: DEXAMETHASONE SOD INJ 4 MG/ML VIAL ONE (10:11)
[2017-03-20] MEDS ORDERED: MIDAZOLAM HCL 1 MG/ML 2ML VIAL ONE (10:12)
[2017-03-20] MEDS ORDERED: BUPIVACAINE/EPINEPHRINE 0.5% MPF 1:200,000 30 ML VIAL ONE (10:21)
[2017-03-20] MEDS ORDERED: BACITRACIN 50000 UNIT VIAL ONE (11:01)
[2017-03-20] MEDS ORDERED: NURSING VERBAL MED ORDER ONE (12:15)
[2017-03-20] MEDS ORDERED: CEFAZOLIN 2000MG IV PUSH 10 ML IV SCH (12:15)
[2017-03-20] MEDS ORDERED: MoRPHine SULFATE 4 MG/ML 1 ML CARP\\VIAL IV PRN (16:30)
[2017-03-20] MEDS ORDERED: ALPRAZOLAM 0.25 MG TAB PO PRN (16:30)
--- NOTE | 2017-03-20 16:30 | [facility] Post Operative Brief Note ---
Immediate Operative Summary Operative Date Mar 20, 2017. Pre-Operative Diagnosis Post-operative Seroma Post-Operative Diagnosis Post-operative Seroma, necrotic fat Procedure(s) Performed Incision and Drainage of abdominal Seroma;Application of negative pressure wound therapy device, >50cm sq Surgeon Dr. Rodríguez Hand Tennis Ball Coverer Surgeon(s) Teodoro Barragan Estimated Blood Loss 1 ml Findings Inferior wound with chronic seroma, fluid did not appear infected. There is some necrotic fat. The mesh was not exposed. Wound 7 cm long by 3 cm wide, 5 cm deep, with undermining to a cavity 8x8cm in size. Superior explored, wound [id number]. Wound vac placed to both wounds with bridge, good seal. Specimens Culture 1.Abdominal Hematoma for gram stain, Routine culture and Sensitivity, aerobic and anerobic Drains Wound vac Anesthesia GETA Complication(s) None Disposition Recovery Room / PACU
--- NOTE | 2017-03-20 16:46 | [facility] Operative Report ---
Operative Report Operative Date Mar 20, 2017. Pre-Operative Diagnosis Post-operative Seroma Post-Operative Diagnosis Post operative seroma, fat necrosis Procedure(s) Performed Incision and drainage seroma, application of negative pressure therapy device > [address] Rodríguez Indigo Vat Tender Cloth Surgeon(s) Teodoro Barragan Estimated Blood Loss 1 ml Findings Inferior wound with chronic seroma, fluid did not appear infected. There is some necrotic fat. The mesh was not exposed. Wound 7 cm long by 3 cm wide, 5 cm deep, with undermining to a cavity 8x8cm in size. Superior explored, wound [id number]. Wound vac placed to both wounds with bridge, good seal. Specimens Culture 1.Abdominal Hematoma for gram stain, Routine culture and Sensitivity, aerobic and anerobic Drains Wound vac Anesthesia GETA Complication(s) None Disposition Recovery Room / PACU Indications 47-year-old female approximately one month status post recurrent incisional hernia repair. She had been doing well until a week ago when she developed swelling and pain in her inferior incision site as well as some drainage from her superior incision site. She had aspiration of a seroma in the clinic and had some symptomatic relief, however the seroma reaccumulated and was unable to be aspirated. Follow-up imaging revealed a 10 x 5 cm seroma or possible hematoma, less likely abscess. She was very symptomatic and was developing some erythema to her abdominal wall, she was taken for incision and drainage of her abdominal wall hematoma/seroma and possible application of negative pressure wound therapy device. The risks of the procedure were discussed, all questions were answered, and the patient agreed to proceed with surgery as planned. Description of Procedure The patient was properly identified, consented, and taken to the operating room where she was placed in the supine position. General endotracheal anesthesia was induced. SCDs and a safety belt were placed. Preoperative antibiotics were administered. The patient's dressings were removed and her abdomen was prepped and draped in the standard sterile fashion. Surgical timeout was performed and all parties were in agreement that this was the correct patient and procedure to be performed and we continued as planned. A low midline incision was opened with electrocautery and deepened down to subcutaneous tissue. A chronic seroma cavity was encountered. There was approximately 100 mL of clear serosanguineous fluid. There was also evidence of some fat necrosis in the area. There was no evidence of hematoma, nor was there evidence of abscess. The abdominal wound was completely explored and the fascial closure overlying the mesh appeared to be intact. The wound was irrigated with several liters of saline. Hemostasis was achieved within the wound. Local anesthetic was injected along the skin incision. The superior incision was also explored, there was no evidence of infection. The fascia was intact overlying the mesh. This wound was irrigated as well. The abdomen was then cleaned and dried. The wounds were measured and the inferior wound was 7 cm long by 3 cm wide, 5 cm deep, with undermining to a cavity 8x8cm in size. The superior wound measured [id number] with no undermining. Benzoin was placed around the incisions. Black sponges were placed into both wounds, with the inferior wound there was also a sponge placed in the deep cavity. The wound VAC tape was placed over this area, a sponge bridge was used to connect the 2 wounds. A second layer of wound VAC adhesive tape was placed over top. The footplate was connected to the wound VAC and there was a good seal. The patient was extubated in the operating room and taken to the PACU where she recovered without apparent incident. All sponge, instrument and needle counts were correct at the conclusion of the procedure. The patient tolerated the procedure well. I attest to the content of the Intraoperative Record and any orders documented therein. Any exceptions are noted below.
[2017-03-20] MEDS ORDERED: IV FLUIDS COMPLETED PRN (17:00)
--- NOTE | 2017-03-20 17:15 | Anesthesiology Progress Note ---
Anesthesia Post Op Note Date & Time Mar 20, 2017 at 17:15 Vital Signs Pain Intensity: 2 Vital Signs Past 12 Hours Date Time Temp Pulse Resp B/P (MAP) Pulse Ox O2 Delivery O2 Flow Rate FiO2 03/20/17 17:09 36.8 80 16 116/69 (82) 99 Nasal Cannula 2 03/20/17 16:52 89 16 100 03/20/17 16:52 89 16 03/20/17 16:51 130/73 03/20/17 16:47 72 13 03/20/17 16:47 73 13 100 03/20/17 16:46 130/70 03/20/17 16:42 72 16 100 03/20/17 16:42 74 16 03/20/17 16:41 145/82 03/20/17 16:37 96 16 03/20/17 16:37 94 16 100 03/20/17 16:36 116/ 03/20/17 16:32 85 18 03/20/17 16:32 86 18 100 03/20/17 16:31 140/76 03/20/17 16:29 145/87 03/20/17 16:27 90 15 100 03/20/17 16:27 91 15 03/20/17 16:27 36.6 98 12 145/87 100 Oxymask 10 03/20/17 09:57 37 115 18 127/80 (96) 97 Room Air Notes Mental Status: alert / awake / arousable, participated in evaluation Pt Amnestic to Procedure: Yes Nausea / Vomiting: adequately controlled Pain: adequately controlled Airway Patency, RR, SpO2: stable & adequate BP & HR: stable & adequate Hydration State: stable & adequate Anesthetic Complications: no major complications apparent
[2017-03-20] MEDS: OXYCODONE/ACETAMINOPHEN 5-325 TAB PO PRN ×2 (18:35→22:00)
[2017-03-20] MEDS: LACTATED RINGER'S 1000ML 1,000 ML IV SCH (18:36)
[2017-03-20] MEDS: BUDESONIDE AQ (RHINOCORT AQ) NASAL SPRAY 32 MCG NAE SCH (21:03)
[2017-03-20] MEDS ORDERED: CEFAZOLIN IV 1,000 MG in DEXTROSE 5% 50ML 50 ML IV SCH (22:00)
[2017-03-21] MEDS: CEFAZOLIN IV 1,000 MG in SYRINGE 0 ML IV SCH ×3 (00:17→16:46)
[2017-03-21] MEDS: OXYCODONE/ACETAMINOPHEN 5-325 TAB PO PRN ×5 (01:57→21:51)
[2017-03-21 02:56] VITALS: BP 123/77; PULSE 63; TEMP 36.7; O2SAT 99
[2017-03-21] MEDS: LACTATED RINGER'S 1000ML 1,000 ML IV SCH ×2 (07:28→21:27)
[2017-03-21 07:38] VITALS: BP 120/76; PULSE 65; TEMP 36.5; O2SAT 100
[2017-03-21] MEDS: BUDESONIDE AQ (RHINOCORT AQ) NASAL SPRAY 32 MCG NAE SCH ×2 (08:09→20:41)
--- NOTE | 2017-03-21 08:38 | Surgery Progress Note ---
Surgery Progress Note Date of Service Mar 21, 2017. Subjective 47 year old female status post incisional hernia repair ~ 1 month ago, status post incision and drainage symptomatic seroma with wound vac placement, POD#1. Doing well, feels much better. Ambulating, tolerating diet. Objective Vital Signs: Date Time Temp Pulse Resp B/P (MAP) Pulse Ox O2 Delivery O2 Flow Rate FiO2 03/21/17 07:38 36.5 65 16 120/76 (91) 100 Room Air 03/21/17 02:56 36.7 63 16 123/77 (92) 99 Room Air 03/21/17 00:30 Room Air 03/20/17 23:25 37.0 67 16 144/88 (106) 99 Room Air 03/20/17 20:56 37.1 77 16 132/85 (101) 96 Room Air 03/20/17 19:30 37.0 78 16 133/80 (97) 98 Room Air 03/20/17 18:43 37.0 78 16 137/84 (101) 98 Room Air 03/20/17 18:10 94 Room Air 03/20/17 18:05 37.1 81 16 125/74 (91) 94 Room Air 03/20/17 18:05 Room Air 03/20/17 18:00 98 Room Air 03/20/17 17:09 36.8 80 16 116/69 (82) 99 Nasal Cannula 2 03/20/17 16:52 89 16 100 03/20/17 16:52 89 16 03/20/17 16:51 130/73 03/20/17 16:47 72 13 03/20/17 16:47 73 13 100 03/20/17 16:46 130/70 03/20/17 16:42 72 16 100 03/20/17 16:42 74 16 03/20/17 16:41 145/82 03/20/17 16:37 96 16 03/20/17 16:37 94 16 100 03/20/17 16:36 116/ 03/20/17 16:32 85 18 03/20/17 16:32 86 18 100 03/20/17 16:31 140/76 03/20/17 16:29 145/87 03/20/17 16:27 90 15 100 03/20/17 16:27 91 15 03/20/17 16:27 36.6 98 12 145/87 100 Oxymask 10 03/20/17 09:57 37 115 18 127/80 (96) 97 Room Air General Appearance: WD/WN, no apparent distress Abdomen: normal bowel sounds, non tender, non distended, soft, + pertinent finding (wound vac in place with good seal, serosanguinous output) Laboratory Results: Microbiology Results 03/20/17 Gram Stain - Final, Resulted 03/20/17 Bacterial Culture, Resulted Pending Assessment & Plan POD#1 incision and drainage symptomatic post operative seroma with wound vac placement, gram stain negative. Doing well Plan: d/c abx plan to transition to portable wound vac system, social welfare clerk consulted dispo pending activac wound care consult placed yesterday continue regular diet scd's, ambulation for dvt prophy follow up on cultures
[2017-03-21 12:58] VITALS: BP 143/82; PULSE 66; TEMP 37.2; O2SAT 98
[2017-03-21 15:00] VITALS: BP 130/81; PULSE 79; TEMP 36.7; O2SAT 97
[2017-03-21] MEDS: ONDANSETRON INJ 2 MG/ML 2 ML VIAL IV PRN (20:07)
[2017-03-21 22:54] VITALS: BP 120/75; PULSE 66; TEMP 36.4; O2SAT 97
[2017-03-22] MEDS: OXYCODONE/ACETAMINOPHEN 5-325 TAB PO PRN ×2 (04:20→13:07)
[2017-03-22] MEDS: BUDESONIDE AQ (RHINOCORT AQ) NASAL SPRAY 32 MCG NAE SCH ×2 (07:29→20:44)
[2017-03-22 07:54] VITALS: BP 134/77; PULSE 69; TEMP 36.6; O2SAT 98
--- NOTE | 2017-03-22 08:39 | Surgery Progress Note ---
Surgery Progress Note Date of Service Mar 22, 2017. Subjective 47 year old female status post incisional hernia repair ~ 1 month ago, status post incision and drainage symptomatic seroma with wound vac placement, POD#2. Doing well, continues to feel much better. Ambulating, tolerating diet. Objective Vital Signs: Date Time Temp Pulse Resp B/P (MAP) Pulse Ox O2 Delivery O2 Flow Rate FiO2 03/22/17 07:54 36.6 69 16 134/77 (96) 98 Room Air 03/22/17 00:15 Room Air 03/21/17 22:54 36.4 66 16 120/75 (90) 97 Room Air 03/21/17 15:50 Room Air 03/21/17 15:00 36.7 79 20 130/81 (97) 97 Room Air 03/21/17 12:58 37.2 66 16 143/82 (102) 98 Room Air General Appearance: WD/WN, no apparent distress Abdomen: normal bowel sounds, non tender, non distended, soft Incision(s): clean, dry, intact, no drainage, findings (vac in place with good seal, serosanguinous fluid in container. Mild erythema that appears to be resolving.) Diagnostic Interpretation: RUN DATE: 03/21/17 [facility] LAB PAGE 1 RUN TIME: 1425 Specimen Inquiry PATIENT: TYRON SEPULVEDA Sylvie LOC: SEE # : [id number] AGE/SX: 47/F ROOM: N381 REG : 03/21/[address]: Ranjith Rodríguez DO : 1970 BED: 1 DIS : STATUS: ADM IN TLOC: SPEC #: [id number] BERNARDINO: 03/20/17 STATUS: RES REQ #: [id number] RECD: 03/20/[address]: Ranjith Rodríguez DO SOURCE: DRAIN-DEEP ENTR: 03/20/[address]: Milton Arguelles III, CRNP [facility]: DAR[facility] ORDERED: AER/PASCUAL CULTSMR COMMENTS: SOURCE IS ABDOMINAL SEROMA Procedure Result Verified Site GRAM STAIN Final 03/20/17-1720 RESULT MODERATE POLYS NO ORGANISMS SEEN OR AER/PASCUAL CULT Preliminary 03/21/17-142 NO GROWTH TO DATE. Assessment & Plan POD#2 incision and drainage symptomatic post operative seroma with wound vac placement, gram stain negative. Doing well Plan: plan to transition to portable wound vac system, social science professor consulted dispo pending activac wound care consult pending vac change tomorrow, will make npo in case we need sedation continue regular diet scd's, ambulation for dvt prophy follow up on cultures
[2017-03-22] MEDS: LACTATED RINGER'S 1000ML 1,000 ML IV SCH (11:23)
[2017-03-22 15:12] VITALS: BP 130/80; PULSE 63; TEMP 36.7; O2SAT 99
[2017-03-22 15:40] VITALS: O2SAT 99
[2017-03-22] MEDS ORDERED: NURSING VERBAL MED ORDER ONE (20:00)
[2017-03-22] MEDS: DOCUSATE SODIUM 100 MG CAP PO SCH (20:44)
[2017-03-22] MEDS: POLYETHYLENE (MIRALAX) 17 GM PACK PO PRN (20:44)
[2017-03-22 22:50] VITALS: BP 124/77; PULSE 65; TEMP 36.5; O2SAT 98
[2017-03-23] MEDS: LACTATED RINGER'S 1000ML 1,000 ML IV SCH ×2 (00:09→13:52)
[2017-03-23] MEDS: OXYCODONE/ACETAMINOPHEN 5-325 TAB PO PRN ×3 (00:20→13:47)
[2017-03-23 07:35] VITALS: BP 138/82; PULSE 60; TEMP 36.5; O2SAT 99
[2017-03-23 07:46] VITALS: O2SAT 99
--- NOTE | 2017-03-23 07:57 | Anesthesiology Progress Note ---
Anesthesia Post Op Note Date & Time Mar 23, 2017 at 07:56 Vital Signs Vital Signs Past 12 Hours Date Time Temp Pulse Resp B/P (MAP) Pulse Ox O2 Delivery O2 Flow Rate FiO2 03/23/17 07:46 99 Room Air 03/23/17 07:35 36.5 60 16 138/82 (100) 99 Room Air 03/23/17 00:15 Room Air 03/22/17 22:50 36.5 65 16 124/77 (93) 98 Room Air Notes Mental Status: alert / awake / arousable, participated in evaluation Pt Amnestic to Procedure: Yes Nausea / Vomiting: adequately controlled Pain: adequately controlled Airway Patency, RR, SpO2: stable & adequate BP & HR: stable & adequate Hydration State: stable & adequate Anesthetic Complications: no major complications apparent
--- NOTE | 2017-03-23 08:46 | Surgery Progress Note ---
Surgery Progress Note Date of Service Mar 23, 2017. Subjective Post OP Day: 3 Objective Vital Signs: Date Time Temp Pulse Resp B/P (MAP) Pulse Ox O2 Delivery O2 Flow Rate FiO2 03/23/17 07:46 99 Room Air 03/23/17 07:35 36.5 60 16 138/82 (100) 99 Room Air 03/23/17 00:15 Room Air 03/22/17 22:50 36.5 65 16 124/77 (93) 98 Room Air 03/22/17 15:40 99 Room Air 03/22/17 15:12 36.7 63 18 130/80 (97) 99 Room Air Abdomen: soft, + pertinent finding (wound vac in place) Incision(s): erythema (resolving) Assessment & Plan s/p I&D of seroma after hernia repair change wound vac today, await approval for home vac gram positive cocci on prelim culture, will restart abx seen with Dr. Rodríguez
[2017-03-23] MEDS: DOCUSATE SODIUM 100 MG CAP PO SCH ×2 (09:03→21:18)
[2017-03-23] MEDS: BUDESONIDE AQ (RHINOCORT AQ) NASAL SPRAY 32 MCG NAE SCH ×2 (09:03→21:18)
[2017-03-23] MEDS: SULFAMETHOXAZOLE/TRIMETHOPRIM DS 800/160MG TAB PO SCH ×2 (09:47→21:18)
[2017-03-23 13:04] VITALS: BP 122/78; PULSE 68; TEMP 36.5; O2SAT 100
[2017-03-23] MEDS: MoRPHine SULFATE 2 MG/ML CARP IV PRN ×2 (13:48→14:03)
[2017-03-23] MEDS ORDERED: MoRPHine SULFATE 2 MG/ML CARP IV STA (15:08)
[2017-03-23 15:49] VITALS: BP 151/93; PULSE 68; TEMP 36.7; O2SAT 99
[2017-03-23] MEDS: ONDANSETRON INJ 2 MG/ML 2 ML VIAL IV PRN (17:26)
[2017-03-23 23:30] VITALS: BP 132/77; PULSE 74; TEMP 36.6; O2SAT 97
[2017-03-24] MEDS: OXYCODONE/ACETAMINOPHEN 5-325 TAB PO PRN (00:13)
[2017-03-24] MEDS: LACTATED RINGER'S 1000ML 1,000 ML IV SCH (02:36)
[2017-03-24 03:35] VITALS: BP 129/80; PULSE 62; TEMP 36.5; O2SAT 99
[2017-03-24 07:03] VITALS: BP 145/86; PULSE 64; TEMP 36.6; O2SAT 98
[2017-03-24] MEDS: BUDESONIDE AQ (RHINOCORT AQ) NASAL SPRAY 32 MCG NAE SCH ×2 (08:19→21:29)
[2017-03-24] MEDS: DOCUSATE SODIUM 100 MG CAP PO SCH ×2 (08:20→21:28)
[2017-03-24] MEDS: SULFAMETHOXAZOLE/TRIMETHOPRIM DS 800/160MG TAB PO SCH (08:20)
--- NOTE | 2017-03-24 10:48 | Surgery Progress Note ---
Surgery Progress Note Date of Service Mar 24, 2017. Subjective 47-year-old female status post incisional hernia repair over a month ago, complicated by persistent seroma, status post incision and drainage and wound VAC placement. Overall doing well, cultures have grown Peptostreptococcus, on Bactrim. Wound vac changed at bedside yesterday. Still pending freedom vac and home health, otherwise ready for discharge. Objective Vital Signs: Date Time Temp Pulse Resp B/P (MAP) Pulse Ox O2 Delivery O2 Flow Rate FiO2 03/24/17 08:00 Room Air 03/24/17 07:03 36.6 64 17 145/86 (105) 98 Room Air 03/24/17 03:35 36.5 62 16 129/80 (96) 99 Room Air 03/23/17 23:30 36.6 74 16 132/77 (95) 97 Room Air 03/23/17 21:00 Room Air 03/23/17 15:49 36.7 68 18 151/93 (112) 99 Room Air 03/23/17 13:04 36.5 68 18 122/78 (93) 100 Room Air General Appearance: WD/WN, no apparent distress Abdomen: normal bowel sounds, non tender, non distended, soft Incision(s): clean, dry, intact, no erythema Diagnostic Interpretation: RUN DATE: 03/24/17 [facility] LAB PAGE 1 RUN TIME: 957 Specimen Inquiry PATIENT: TYRON SEPULVEDA LOC: SEE U # : [id number] AGE/SX: 47/F ROOM: [facility] REG : 03/21/[address]: Ranjith Rodríguez, DO : 1970 BED: 1 DIS : STATUS: ADM IN TLOC: SPEC #: [id number] BERNARDINO: 03/20/17 STATUS: RES REQ #: [id number] RECD: 03/20/[address]: Ranjith Rodríguez DO SOURCE: DRAIN-DEEP ENTR: 03/20/[address]: Milton Arguelles III, CRNP [facility]: ABD ORDERED: AER/PASCUAL CULTSMR COMMENTS: SOURCE IS ABDOMINAL SEROMA Procedure Result Verified Site GRAM STAIN Final 03/20/17 RESULT MODERATE POLYS NO ORGANISMS SEEN OR AER/PASCUAL CULT Preliminary 03/24/17 Organism 1 PEPTOSTREPTOCOCCUS SPECIES QUANITY MODERATE SENS NO SENSITIVITY TO FOLLOW Assessment & Plan A: s/p I&D post op infected seroma, doing well, awaiting freedom vac and home health. P: discharge when freedom vac and home health coordinated follow up in clinic in 2 weeks currently on bactrim , may switch to clinda or cephalosporin h/l iv, reg diet, po pain meds
[2017-03-24] MEDS ORDERED: NURSING VERBAL MED ORDER ONE (15:00)
[2017-03-24] MEDS ORDERED: AMOX875T PO (15:03)
[2017-03-24] MEDS ORDERED: OXYC-57 PO (15:03)
--- NOTE | 2017-03-24 15:05 | Discharge Instructions ---
Discharge Instructions Date of Service Mar 24, 2017. Admission Reason for Admission: Post-Op Hematoma Discharge Discharge Diagnosis / Problem: Drainage of hematoma, wound vac placement Discharge Goals Goal(s): Therapeutic intervention Activity Recommendations Activity Limitations: as noted below Lifting Limitations: no more than 10 pounds Shower/Bathe: keep incision dry . Instructions / Follow-Up Instructions / Follow-Up Dr. Rodríguez in 2 weeks, call [phone] to schedule Current Hospital Diet Patient's current hospital diet: Regular Diet Discharge Diet Recommended Diet: Regular Diet Procedures Procedures Performed: Incision and Drainage of abdominal Seroma;Application of negative pressure wound therapy device, >50cm sq Pending Studies Studies pending at discharge: no Medical Emergencies . Who to Call and When: Medical Emergencies: If at any time you feel your situation is an emergency, please call 911 immediately. . Non-Emergent Contact Non-Emergency issues call your: Surgeon Call Non-Emergent contact if: you have a fever, temperature is above 101.5, your pain is not controlled, you have any medication questions . "Provider Documentation" section prepared by Maged Lewis. . VTE Core Measure Inpt VTE Proph given/why not?: SCD's
[2017-03-24 15:13] VITALS: BP 133/84; PULSE 80; TEMP 36.5; O2SAT 97
[2017-03-24] MEDS: AMOXICILLIN/CLAVULANATE TAB 875 MG TAB PO SCH (18:23)
[2017-03-24] MEDS: POLYETHYLENE (MIRALAX) 17 GM PACK PO PRN (18:38)
[2017-03-24 23:03] VITALS: BP 135/76; PULSE 71; TEMP 36.5; O2SAT 99
[2017-03-25 07:40] VITALS: BP 128/78; PULSE 70; TEMP 36.6; O2SAT 100
[2017-03-25 07:48] VITALS: O2SAT 100
[2017-03-25] MEDS: AMOXICILLIN/CLAVULANATE TAB 875 MG TAB PO SCH (09:10)
[2017-03-25] MEDS: DOCUSATE SODIUM 100 MG CAP PO SCH (09:10)
[2017-03-25] MEDS: BUDESONIDE AQ (RHINOCORT AQ) NASAL SPRAY 32 MCG NAE SCH (09:12)
--- NOTE | 2017-03-25 09:28 | Surgery Progress Note ---
Surgery Progress Note Date of Service Mar 25, 2017. Subjective + feeling well, + ambulating, + bowel movement (2 BM yesterday), + pain controlled, + diet (Tolerating Regular diet), No nausea, No vomiting 47-year-old female status post incisional hernia repair over a month ago, complicated by persistent seroma, status post incision and drainage and wound VAC placement. Overall doing well, cultures have grown Peptostreptococcus, on Bactrim. Wound vac changed at bedside yesterday. Still pending freedom vac and home health, otherwise ready for discharge. Objective Vital Signs: Date Time Temp Pulse Resp B/P (MAP) Pulse Ox O2 Delivery O2 Flow Rate FiO2 03/25/17 07:48 100 Room Air 03/25/17 07:40 36.6 70 14 128/78 (95) 100 Room Air 03/25/17 07:25 Room Air 03/25/17 00:08 Room Air 03/24/17 23:03 36.5 71 16 135/76 (95) 99 Room Air 03/24/17 15:40 Room Air 03/24/17 15:13 36.5 80 16 133/84 (100) 97 Room Air General Appearance: WD/WN, no apparent distress Head: normocephalic, atraumatic Neck: supple, trachea midline Abdomen: non distended, soft, no organomegaly, + tenderness (Mild TTP), + pertinent finding (Wound Vac in place. ) Incision(s): clean, dry, intact, no erythema Assessment & Plan s/p I&D post-op infected seroma with wound vac placement doing well, wound vac in place, Coordinate for change prior to D/C. Patient stopped Bactrim, switched to Augmentin. D/C today, coordinate with home health. F/U in general surgery clinic 2 weeks - Discharge instructions provided. regular diet
[2017-03-25] MEDS ORDERED: TRAM-453 PO (09:31)
[2017-03-25] MEDS: MoRPHine SULFATE 2 MG/ML CARP IV PRN (09:38)
[2017-03-25 10:51] VITALS: BP 128/78; PULSE 70; TEMP 36.6; O2SAT 100
--- NOTE | 2017-03-26 12:12 | Discharge Summary ---
Discharge Summary Date of Service Mar 26, 2017. Admission Date/Reason Mar 21, 2017 at 13:34 Post-Op Hematoma. Discharge Date/Disposition Mar 25, 2017 Home (F/U with wound care.) Diagnosis Principal Diagnosis: Post operative seroma, fat necrosis. Procedure(s) Performed Incision and drainage seroma, application of negative pressure therapy device > 50 cm sq. Consultations Wound Care Discharge planning evaluation Medication Reconciliation New Medications: Amoxicillin & Pot Clavulanate (Augmentin 875-125 mg) 1 Tab Tab 875 MG PO BID for 10 Days, #14 TAB Tramadol Hcl (Ultram) 50 Mg Tab 50 MG PO Q4H for Pain for 3 Days, #18 TAB PRN PAIN Continued Medications: Adapalene (Differin) 0.1 % Cre 1 APPLN TOP HS for 30 Days, #45 GM 11 Refills Alprazolam (Xanax) 0.5 Mg Tab 0.25 MG PO DAILY PRN for Anxiety, TAB Azelastine Hcl (Astelin Nasal [place]) 200 Sprays/30 Ml [place] 1-2 SPRAYS DEVON BID, BTL Budesonide (Nasal) (Budesonide Nasal [place]) 32 Mcg/Act Nae 1 SPRAY [place] BID Huz[place]sl[place]-Steslnvyypdfh-Egyay (Fioricet) 1 Cap Cap 1-2 CAP PO Q4H PRN for Migraine Clotrimazole (Topical) (Clotrimazole Af) 1 % Cre 1 DOSE TOP DAILY Diphenhydramine Hcl (Benadryl Allergy) 25 Mg Cap 1 CAP PO HS PRN for Sleep, #30 CAP Melatonin (Melatonin Maximum Strengt) 5 Mg Tab 5 MG PO HS, #30 TAB Multivitamin (Multivitamin) Tab 1 TAB PO QAM, TAB Ondansetron (Ondansetron HCl) 4 Mg Tab 4 MG PO Q6H PRN for Nausea Probiotic Product (Probiotic) 1 Cap Cap 1 CAP PO QAM Venlafaxine Hcl (Venlafaxine Hcl Er) 150 Mg Tab 1 TAB PO QAM, TAB 2 Refills Discontinued Medications: Doxycycline Monohydrate (Monodox) 100 Mg Cap 100 MG PO DAILY, CAP Trimethoprim/Sulfamethoxazole (Bactrim 400MG/80MG) Tab 1 TAB PO Q12H, TAB Admission Physical Exam As per Admitting History & Physical. Hospital Course 03/20/17: Patient presented at [facility] today for a scheduled I&D of possible post-op hematoma and possible placement of wound vac. The procedure was performed without complications. post-op diagnosis was made of a seroma with some fat necrosis. Wound vac was applied in the OR and the patient was admitted to med /surg on observation. Wound care and discharge evaluation planning were consulted at this time. 03/21/17: POD#1 incision and drainage symptomatic post operative seroma with wound vac placement, gram stain negative. Doing well d/c abx, plan to transition to portable wound vac system, social media editor consulted, dispo pending activac Tolerating regular diet, SCD's, ambulation for DVT prophylaxis, awaiting cultures. 03/22/17: POD#2 incision and drainage symptomatic post operative seroma with wound vac placement, gram stain negative. Doing well wound care consult and social media editor consult still pending, vac change tomorrow, will make NPO in case we need sedation, continue regular diet, SCD's, ambulation for DVT prophylaxis, still awaiting cultures. 03/23/17: POD#3 incision and drainage symptomatic post operative seroma with wound vac placement, gram stain negative. Doing well. Change wound vac today, await approval for home vac, gram positive cocci on prelim culture, will restart antibiotics. 03/24/17: POD#4 incision and drainage symptomatic post operative seroma with wound vac placement, gram stain negative. Doing well. Awaiting freedom vac and home health. Discharge when freedom vac and home health coordinated, follow up in clinic in 2 weeks. Currently on Bactrim, may switch to clindamycin or cephalosporin. Continue regular diet, PO Pain meds, h/ l IV. 03/25/17: POD#5 s/p I&D post-op infected seroma with wound vac placement. doing well, wound vac in place, Coordinate for change prior to D/C. Patient stopped Bactrim, switched to Augmentin. D/C today, coordinate with home health. F/U in general surgery clinic 2 weeks - Discharge instructions provided. Discharge Instructions Please refer to the electronic Patient Visit Report (Discharge Instructions) for additional information.
--- NOTE | 2017-04-01 06:58 | EDITING REQUIRED CODING QUERY ---
CODING QUERY To promote full compliance with coding requirements relating to patient care, provider participation is requested in all cases of geriatric assistant uncertainty. Please assist us with the question(s) below: Coding Question(s): Patient admitted due to postoperative seroma, status post incisional hernia repair one month ago. Progress notes mention postoperative seroma - discharge summary documents also infected seroma. Please check below all that apply to the diagnosis you were treating. Thanks for your help! Isra Cooper front office administrator [facility] Physician's Response(s): ___x____ Patient was treated for postoperative infected seroma Patient was treated for postoperative infection Cannot clinically correlate Other/ Please document : __The patient was treated for a post operative seroma with aspiration in clinic, initial cultures were negative on aspiration. The final cultures after exploration and washout in the OR were positive. Principal Diagnosis: "_that condition established after study, to be chiefly responsible for occasioning the admission of the patient to the hospital for care." Co-Existing Principal Diagnosis: "_when two or more diagnoses equally meet the criteria for principal diagnosis as determined by the circumstances of admission, diagnostic work up, and/or therapy provided, and the Alphabetic Index, Tabular List, or another coding guideline does not provide sequencing direction, any one of the diagnoses may be sequenced first." "When the physician has documented what appears to be a current diagnosis in the body of the record, but has not included the diagnosis in the final diagnostic statement, the physician should be asked whether the diagnosis should be added." (Source Coding Clinic 2 QTR90. p3-4)
== END 2017-03-25 13:19 | disposition home health service (06) | DRG 909 ==
LOC: C.ACU 09:12 → C.MSN 11:05 → ENRESERV 17:03 → OBSVTOIN 03-21 13:34
PROVIDERS: ADMIT Surgery; ATTEND Surgery
PROC: 0J9800Z Drainage of Abdomen Subcutaneous Tissue and Fascia with Drainage Device, Open Approach (ICD-10-PCS; principal; 2017-03-20 11:15)
PROC: 0WH Anatomical Regions, General, Insertion (ICD-10-PCS; principal; 2017-03-20 11:15)
DX: K91.873 Postprocedural seroma of a digestive system organ or structure following other procedure (principal); B96.89 Other specified bacterial agents as the cause of diseases classified elsewhere; F41.9 Anxiety disorder, unspecified; F43.10 Post-traumatic stress disorder, unspecified; M79.89 Other specified soft tissue disorders; Z98.890 Other specified postprocedural states; Y83.8 Other surgical procedures as the cause of abnormal reaction of the patient, or of later complication, without mention of misadventure at the time of the procedure; Z86.718 Personal history of other venous thrombosis and embolism; Y92.019 Unspecified place in single-family (private) house as the place of occurrence of the external cause

== ENCOUNTER → 2017-04-27 | Outpatient (CLI) | payer OTHER ==
[~2017-04-27] MED LIST changes: -DOXY100C76 PO; -FLAX1CAP11 PO; -LACTATED RINGER'S 1000ML 1,000 ML IV SCH; -MELATAB2 PO; -OXYC-57 PO; -ZFR4 PO
--- NOTE | 2017-04-28 07:54 | MAMMOGRAPHY REPORT ---
BILATERAL DIGITAL SCREENING MAMMOGRAM WITH CAD: 04/27/2017 CLINICAL HISTORY: Routine screening. Patient has no complaints. TECHNIQUE: Bilateral CC and MLO views of the breasts with and without implant displacement views were obtained. Current study was also evaluated with a Computer Aided Detection (CAD) system. COMPARISON: Comparison is made to exams dated: 12/11/2015 mammogram, 11/13/2014 mammogram, 11/07/2014 [facility], 06/23/2013 mammogram, and 07/08/2012 mammogram. BREAST COMPOSITION: There are scattered areas of fibroglandular density in both breasts. FINDINGS: Bilateral subglandular saline implants are intact. The glandular pattern is similar to chinmay or mammograms. No suspicious mass, architectural distortion or cluster of suspicious microcalcificat ions is seen. IMPRESSION: ACR BI-RADS CATEGORY 1: NEGATIVE There is no mammographic evidence of malignancy. A 1 year screening mammogram is recommended. The pa tient will receive written notification of the results. Approximately 10% of breast cancers are not detected with mammography. A negative mammographic report should not delay biopsy if a clinically suggestive mass is present. Gracie Muir M.D. ay/:04/27/2017 15:36:29 Cancer Registrar: Marlene CLARK(Yoselin)(Martin)(BD), [facility] letter sent: Normal 1/2 BI-RADS Code: ACR BI-RADS Category 1: Negative
== END | disposition home or self-care (01) ==
LOC: C.MAMM 11:22
PROVIDERS: ATTEND Nurse Practitioner Family
DX: Z12.31 Encounter for screening mammogram for malignant neoplasm of breast (principal)

== ENCOUNTER → 2017-05-06 | Outpatient (CLI) | payer OTHER ==
[~2017-05-06] MED LIST changes: +GABA-1220 PO
[2017-05-06 16:14] LABS: FOLLICLE STIMULAT HORMONE 95.47 IU/L
[2017-05-12 12:29] LABS: ANTICARDIOLIPID AB IGA <11 APL (< = 11)
== END | disposition home or self-care (01) ==
LOC: C.LAB1850 14:23
PROVIDERS: ATTEND Nurse Practitioner Family
DX: N95.1 Menopausal and female climacteric states (principal)

== ENCOUNTER 2020-05-15 09:51 | Inpatient (IN) ==
[2020-05-15] MEDS ORDERED: MoRPHine SULFATE 10 MG/ML CARP/VIAL IV STA (10:08)
[2020-05-15] MEDS ORDERED: ONDANSETRON INJ 2 MG/ML 2 ML VIAL IV STA (10:08)
[2020-05-15] MEDS ORDERED: SODIUM CHLORIDE 0.9% 1000ML 2,000 ML IV ONE (10:08)
--- NOTE | 2020-05-15 10:12 | Emergency Department Note ---
Impression & Plan SBO (small bowel obstruction), Abdominal pain, Transaminitis ED Provider Note NAME: TYRON SEPULVEDA AGE: 50 SEX: F : 1970 ARRIVES VIA: Walk-In INFORMANT: Patient ED PROVIDER(S): Samir Queen DO CHIEF COMPLAINT: Abdominal pain HPI: Patient is a 50-year-old female with a past medical history of diverticulitis with a resection, appendectomy, cholecystectomy and partial hysterectomy who presents the ER for abdominal pain. This started this morning around 4 AM. Symptoms have been getting worse. She admits to vomiting. She is unable to eat anything or drink anything. Abdomen has been swelling. Has not had a bowel movement since yesterday and has not been passing gas. Denies any dysuria urgency or frequency. Pain to 10 out of 10 and worse in the left upper quadrant and sharp and stabbing in nature. No other exacerbating or remitting factors. ROS: See above HPI for pertinent positives & negatives. A total of 10 systems reviewed and were otherwise negative. PAST MEDICAL HISTORY:See Below PAST SURGICAL HISTORY:See Below FAMILY HISTORY:See Below SOCIAL HISTORY:See Below HOME MEDICATIONS:See Below ALLERGIES:See Below VITALS:See Below PHYSICAL EXAMINATION: GENERAL: Sitting up in bed, alert, moderate distress holding abdomen EYE EXAM: normal conjunctiva. OROPHARYNX: no exudate, no erythema, lips, buccal mucosa, and tongue normal and mucous membranes are moist NECK: supple, no nuchal rigidity, no adenopathy, non-tender LUNGS: Clear to auscultation. Normal chest wall mechanics HEART: no murmurs, S1 normal and S2 normal ABDOMEN: Mildly distended and diffusely tender, normo-active bowel sounds, no masses, no rebound or guarding. UPPER EXTREMITIES: upper extremities are grossly normal. LOWER EXTREMITIES: No pitting edema. NEURO EXAM: Normal sensorium, cranial nerves II-XII grossly intact, normal speech, no gross weakness of arms, no gross weakness of legs. MEDICAL DECISION MAKING: Patient is a 50-year-old female who presents the ER for severe abdominal pain with multiple previous surgeries. IV was established blood work was obtained. Labs show leukocytosis 17,000. No significant anemia. BMP with mild hyponatremia. LFTs were mildly elevated in the 1 and 200s. Bili was normal. Lipase was normal. UA was contaminated. Covid was negative. CT abdomen pelvis was performed which showed high-grade small bowel obstruction with a questionable coin/foreign body present at the obstruction site. NG tube was placed after discussion with Dr. Cox. KUB was obtained. Patient was given IV narcotics and IV fluids. Discussed with the hospitalist. General surgery will evaluate the patient at bedside and the hospitalist will admit per the request of general surgery. Triage Nursing notes reviewed. Prior medical records reviewed Vital Signs: reviewed and remarkable for tachy Differential diagnosis: Differential diagnoses includes but is not limited to gastritis, peptic ulcer disease, GERD, gallbladder disease, pancreatitis, small bowel obstruction, acute coronary syndrome, pericarditis, ischemic bowel, irritable bowel disease, i rritable bowel syndrome, appendicitis, diverticulitis, malignancy, hernia, urinary tract infection, torsion, perforation, trauma, infectious. ER treatment provided: See below Diagnostics interpreted by me: ECG: none Cardiac Monitoring: An order was placed for continuous cardiac monitoring. The m onitor shows a rate of 108 with sinus rhythm. Laboratory studies: As stated above and show below. Imaging studies: CT abdomen pelvis shows small bowel obstruction with a possible foreign body at that site Consultation(s): Discussed with Dr. Nair who evaluate the patient at bedside Discussed with the hospitalist for admission/Dr. Arambula ED COURSE: Procedures: none Critical Care: None Past Med/Surg History Medical History (Updated 05/15/20 @ 16:27 by Samir Queen DO) Allergic rhinitis Anxiety Anxiety disorder Doing well on as needed Xanax. No medication changes at this time. Will re- evaluate this fall. Diverticulitis DVT (deep venous thrombosis) 1993 BILAT BEHIND KNEES (FROM CONTROL) Dyslipidemia Endometriosis Lupus anticoagulant disorder SBO (small bowel obstruction) Temporomandibular joint disorder Urinary urgency Surgical History Ganglion cyst History of appendectomy History of breast augmentation History of bunionectomy RT History of cholecystectomy History of colonoscopy History of esophagogastroduodenoscopy (EGD) History of hemicolectomy History of hemicolectomy History of hysterectomy History of nasal septoplasty History of tooth extraction History of ventral hernia repair Hx of breast surgery Hx of LASIK S/P cholecystectomy 05/2016 S/P colon resection 2013 BOWEL RESECTION AND Bowel resection due to recurrent diverticulitis with ileostomy placement 05/2016 and subsequent reversal S/P hernia repair Hernia surgery x 2 02/2017, 04/2017 - complicated by seroma formation requiring a wound vac Status post epigastric hernia repair, follow-up exam Family History Grandfather (Paternal) Family history of diabetes mellitus Mother Family history of esophageal cancer POSSIBLY Other Abdominal wall hernia Acute diverticulitis Acute postoperative abdominal pain Closed head injury Constipation Contusion of left hip Contusion of right shoulder Contusion of soft tissue Encounter for removal of nasal packing Epistaxis Fall Gallstones Nausea Postoperative abdominal pain Right ovarian cyst Sigmoid diverticulitis Small bowel obstruction Denies family history of Ovarian cancer Prostate cancer Myocardial infarction Breast cancer Colorectal cancer Social History Smoking Status: Never smoker Second Hand Exposure: Yes (AT WORK); Hx Alcohol Use: Yes Alcohol type: wine Hx Substance Use: No Preferred Language: Icelandic Communication Ability: Effective Visual Impairment: No Limitations Hearing Ability: Normal 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 Beliefs That Will Affect Care: None marital status: Single Current Living Situation: Alone current occupational status: employed current occupation: [employer] Feels Safe at Home: Yes Assistive Devices: Contacts Allergies Allergies Allergy/AdvReac Type Severity Reaction Status Date / Time adhesive Allergy Mild skin rash, Verified 05/15/20 11:03 and sore Home Meds Home Medications Medication Instructions Recorded Confirmed biotin 1 mg PO QAM 06/02/18 05/15/20 Saccharomyces boulardii 250 mg 250 mg PO QAM cap 09/24/18 05/15/20 capsule multivitamin 1 tab PO QAM 10/28/18 05/15/20 loratadine 10 mg tablet 10 mg PO QAM 03/15/20 05/15/20 doxycycline hyclate 50 mg PO HS 05/15/20 05/15/20 escitalopram oxalate 5 mg PO QAM 05/15/20 05/15/20 Previous Rx's Medication Instructions Recorded ciprofloxacin HCl 500 mg tablet 500 mg PO Q12H #20 tab 09/19/19 alprazolam 0.5 mg tablet See Rx Instructions PO DAILY PRN 12/20/19 #90 tab ondansetron HCl 4 mg tablet 4 mg PO Q6H #30 tab 12/28/19 [id number] 30 1 - 2 cap PO .COMPLEX PRN #30 cap 05/14/20 mg-50 mg-325 mg-40 mg capsule Results & Data (ED) Vital Signs Vital Signs - 24 hr 05/15/20 09:54 05/15/20 10:21 05/15/20 10:30 Temperature 36.7 C Temperature Source Temporal Artery Scan Pulse Rate 113 H 80 86 Pulse Rate [Left Finger] Pulse Rate from SpO2 Sensor 81 86 Pulse Rhythm [Left Finger] Respiratory Rate 24 15 14 Respiratory Effort / Characteristics Respiratory Depth Normal Respiratory Pattern Tachypnea Blood Pressure 138/99 136/89 118/72 Blood Pressure [Left Arm] Blood Pressure Mean 112 106 86 Blood Pressure Mean [Left Arm] Blood Pressure Position Sitting Blood Pressure Position [Left Arm] Pulse Oximetry 100 95 95 Oxygen Delivery Method Room Air Room Air Room Air Sepsis Recent Fever Within 48 Hours No Sepsis New/Unexplained Change in Mental Status N/A Sepsis Action Taken by Nursing No Action Required 05/15/20 10:57 05/15/20 11:51 05/15/20 11:53 Temperature Temperature Source Pulse Rate 90 Pulse Rate [Left Finger] 95 H 93 H Pulse Rate from SpO2 Sensor 91 H Pulse Rhythm [Left Finger] Regular Respiratory Rate 18 19 20 Respiratory Effort / Characteristics Non-Labored Spontaneous Respiratory Depth Normal Respiratory Pattern Blood Pressure 110/79 Blood Pressure [Left Arm] 118/72 110/79 Blood Pressure Mean 85 Blood Pressure Mean [Left Arm] 87 89 Blood Pressure Position Blood Pressure Position [Left Arm] Sitting Pulse Oximetry 93 99 99 Oxygen Delivery Method Room Air Room Air Room Air Sepsis Recent Fever Within 48 Hours Sepsis New/Unexplained Change in Mental Status Sepsis Action Taken by Nursing 05/15/20 12:00 Temperature Temperature Source Pulse Rate 90 Pulse Rate [Left Finger] Pulse Rate from SpO2 Sensor 90 Pulse Rhythm [Left Finger] Respiratory Rate 15 Respiratory Effort / Characteristics Respiratory Depth Respiratory Pattern Blood Pressure 134/92 Blood Pressure [Left Arm] Blood Pressure Mean 104 Blood Pressure Mean [Left Arm] Blood Pressure Position Blood Pressure Position [Left Arm] Pulse Oximetry 97 Oxygen Delivery Method Room Air Sepsis Recent Fever Within 48 Hours Sepsis New/Unexplained Change in Mental Status Sepsis Action Taken by Nursing Laboratory Data Result diagrams: 05/15/20 10:13 05/15/20 10:13 Lab Results 05/15/20 05/15/20 05/15/20 Range/Units 10:13 10:13 10:22 WBC 12.15 H (4.8-10.8) K/uL RBC 5.12 (4.2-5.4) M/uL Hgb 15.5 (12.0-16.0) g/dL POC Hgb 17.0 H (12.0-16.0) g/dl Hct 46.4 (37-47) % POC Hct 50 H (37-47) % MCV 90.6 (80-100) fL MCH 30.3 (25-34) pg MCHC 33.4 (32-36) g/dL RDW Std Deviation 43.7 (36.4-46.3) fL RDW Coeff of Silvia 13.1 (11.5-14.5) % Plt Count 339 (130-400) K/uL MPV 9.9 (7.4-10.4) fL Immature Gran % (Auto) 0.2 % Neut % (Auto) 75.5 % Lymph % (Auto) 16.5 % Meagher % (Auto) 6.2 % Eos % (Auto) 1.1 % Baso % (Auto) 0.5 % Neut # (Auto) 9.18 H (1.4-6.5) K/uL Lymph # (Auto) 2.01 (1.2-3.4) K/uL Meagher # (Auto) 0.75 H (0.11-0.59) K/uL Eos # (Auto) 0.13 (0-0.5) K/uL Baso # (Auto) 0.06 (0-0.2) K/uL Immature Gran # (Auto) 0.02 (0.00-0.02) K/uL POC Sodium 135 (135-144) mmol/L Sodium 133 L (136-145) mmol/L POC Potassium 4.5 (3.3-5.0) mmol/L Potassium 4.4 (3.5-5.1) mmol/L POC Chloride 101 (101-112) mmol/L Chloride 101 (98-107) mmol/L Carbon Dioxide 23 (21-32) mmol/L POC Total CO2 25 (24-31) mmol/L Anion Gap 9.0 (3-11) POC Anion Gap 15.0 L (16-25) mmol/L POC BUN 16 (7-18) mg/dl BUN 15 (7-18) mg/dl Creatinine 0.86 (0.6-1.2) mg/dl POC Creatinine 0.6 (0.6-1.3) mg/dl Est Cr Clr Drug Dosing 92.7 ml/min Est GFR ( Amer) 90.7 Est GFR (Non-Af Amer) 78.2 BUN/Creatinine Ratio 17.4 (10-20) Glucose 113 H (70-99) mg/dl POC Glucose (other) 118 H (70-99) mg/dl Calcium 10.5 H (8.5-10.1) mg/dl POC Ioniz Calcium Brandon 1.19 (1.12-1.32) mmol/l Total Bilirubin 0.6 (0.2-1) mg/dl AST 100 H (15-37) U/L ALT 224 H (12-78) U/L Alkaline Phosphatase 113 (45-117) U/L Total Protein 8.7 H (6.4-8.2) gm/dl Albumin 4.4 (3.4-5.0) gm/dl Globulin 4.3 H (2.5-4.0) gm/dl Albumin/Globulin Ratio 1.0 (0.9-2) Lipase 100 (73-393) U/L Specimen Hemolysis Urine Color Urine Appearance (Clear) Urine pH (4.5-7.5) Ur Specific [place] (1.000-1.030) Urine Protein (Negative) Urine Glucose (UA) (Negative) Urine Ketones (Negative) Urine Blood (Negative) Urine Nitrite (Negative) Urine Bilirubin (Negative) Urine Urobilinogen (Negative) Ur Leukocyte Esterase (Negative) Urine WBC (Auto) (0-5) /hpf Urine RBC (Auto) (0-4) /hpf U Hyaline Cast (Auto) (0-5) /lpf U Epithel Cells (Auto) (0-5) /lpf Urine Bacteria (Auto) (Negative) 05/15/20 Range/Units 11:00 WBC (4.8-10.8) K/uL RBC (4.2-5.4) M/uL Hgb (12.0-16.0) g/dL POC Hgb (12.0-16.0) g/dl Hct (37-47) % POC Hct (37-47) % MCV (80-100) fL MCH (25-34) pg MCHC (32-36) g/dL RDW Std Deviation (36.4-46.3) fL RDW Coeff of Silvia (11.5-14.5) % Plt Count (130-400) K/uL MPV (7.4-10.4) fL Immature Gran % (Auto) % Neut % (Auto) % Lymph % (Auto) % Meagher % (Auto) % Eos % (Auto) % Baso % (Auto) % Neut # (Auto) (1.4-6.5) K/uL Lymph # (Auto) (1.2-3.4) K/uL Meagher # (Auto) (0.11-0.59) K/uL Eos # (Auto) (0-0.5) K/uL Baso # (Auto) (0-0.2) K/uL Immature Gran # (Auto) (0.00-0.02) K/uL POC Sodium (135-144) mmol/L Sodium (136-145) mmol/L POC Potassium (3.3-5.0) mmol/L Potassium (3.5-5.1) mmol/L POC Chloride (101-112) mmol/L Chloride (98-107) mmol/L Carbon Dioxide (21-32) mmol/L POC Total CO2 (24-31) mmol/L Anion Gap (3-11) POC Anion Gap (16-25) mmol/L POC BUN (7-18) mg/dl BUN (7-18) mg/dl Creatinine (0.6-1.2) mg/dl POC Creatinine (0.6-1.3) mg/dl Est Cr Clr Drug Dosing ml/min Est GFR ( Amer) Est GFR (Non-Af Amer) BUN/Creatinine Ratio (10-20) Glucose (70-99) mg/dl POC Glucose (other) (70-99) mg/dl Calcium (8.5-10.1) mg/dl POC Ioniz Calcium Brandon (1.12-1.32) mmol/l Total Bilirubin (0.2-1) mg/dl AST (15-37) U/L ALT (12-78) U/L Alkaline Phosphatase (45-117) U/L Total Protein (6.4-8.2) gm/dl Albumin (3.4-5.0) gm/dl Globulin (2.5-4.0) gm/dl Albumin/Globulin Ratio (0.9-2) Lipase (73-393) U/L Specimen Hemolysis Urine Color Yellow Urine Appearance Clear (Clear) Urine pH 6.0 (4.5-7.5) Ur Specific [place] 1.020 (1.000-1.030) Urine Protein Negative (Negative) Urine Glucose (UA) Negative (Negative) Urine Ketones Negative (Negative) Urine Blood Negative (Negative) Urine Nitrite Negative (Negative) Urine Bilirubin Negative (Negative) Urine Urobilinogen Negative (Negative) Ur Leukocyte Esterase Trace H (Negative) Urine WBC (Auto) 1-5 (0-5) /hpf Urine RBC (Auto) 0-4 (0-4) /hpf U Hyaline Cast (Auto) 0 (0-5) /lpf U Epithel Cells (Auto) >30 H (0-5) /lpf Urine Bacteria (Auto) Negative (Negative) Administered Medications Hydromorphone HCl (Hydromorphone Inj 0.5 Mg/0.5 Ml Syr) 0.5 mg IV Q4H PRN PRN Reason: Pain Stop: 05/29/20 14:39 Last Admin: 05/15/20 16:02 Dose: 0.5 mg Documented by: [id number] Lactated Ringer's (Lr) 1,000 mls @ 125 mls/hr IV .Q8H TY Stop: 06/14/20 14:39 Last Admin: 05/15/20 15:51 Dose: 125 mls/hr Documented by: [id number] Discontinued Medications Sodium Chloride (Nss 1000ml) 2,000 mls @ 999 mls/hr IV .Q2H1M ONE Stop: 05/15/20 12:08 Last Infusion: 05/15/20 12:38 Dose: 0 mls/hr Documented by: [id number] Admin: 05/15/20 10:16 Dose: 999 mls/hr Documented by: [id number] Lorazepam (Ativan) 0.25 mg in 0.5 mls @ 0.5 mls/min IV NOW STA Stop: 05/15/20 12:24 Last Admin: 05/15/20 12:40 Dose: 0.5 mls/min Documented by: [id number] Ioversol (Ioversol 100ml) 95 ml IV ONCE ONE Stop: 05/15/20 11:16 Last Admin: 05/15/20 11:16 Dose: 95 ml Documented by: [id number] Morphine Sulfate (Morphine Sulfate 10 Mg/Ml Carp/Vial) 6 mg IV NOW STA Stop: 05/15/20 10:09 Last Admin: 05/15/20 10:17 Dose: 6 mg Documented by: [id number] Ondansetron HCl (Ondansetron Inj 2 Mg/Ml 2 Ml Vial) 4 mg IV NOW STA Stop: 05/15/20 10:09 Last Admin: 05/15/20 10:16 Dose: 4 mg Documented by: [id number] Discharge Plan Visit Data Chief Complaint: Abdominal Pain Stated Complaint: DIVERTICULITIS - ABDOMINAL PAIN ED Provider: Samir Queen Discharge Problem: SBO (small bowel obstruction), Abdominal pain, Transaminitis Patient Disposition: Admitted As Inpatient Discharge Instructions Interventions: ED Discharge Assessment Last Done: 05/15/20 14:26 Discharge Problem: Abdominal pain Qualifiers: Abdominal location: unspecified location Qualified Code(s): R10.9 - Unspecified abdominal pain
[2020-05-15 10:26] LABS: Basophils # (auto) 0.06 K/uL (0-0.2); Basophils % (auto) 0.5 %; Eosinophils # (auto) 0.13 K/uL (0-0.5); Eosinophils % (auto) 1.1 %; Hematocrit (blood only) 46.4 % (37-47); Hemoglobin 15.5 g/dL (12.0-16.0); Immature Granulocytes # (auto) 0.02 K/uL (0.00-0.02); Immature Granulocytes % (auto) 0.2 %; Lymphocytes # (auto) 2.01 K/uL (1.2-3.4); Lymphocytes % (auto) 16.5 %; Mean Corpuscular Hemoglobin 30.3 pg (25-34); Mean Corpuscular Hgb Conc 33.4 g/dL (32-36); Mean Corpuscular Volume 90.6 fL (80-100); Mean Platelet Volume 9.9 fL (7.4-10.4); Monocytes # (auto) 0.75 K/uL (0.11-0.59); Monocytes % (auto) 6.2 %; Neutrophils # (auto) 9.18 K/uL (1.4-6.5); Neutrophils % (auto) 75.5 %; Platelet Count 339 K/uL (130-400); RDW Coefficient of Variation 13.1 % (11.5-14.5); RDW Standard Deviation 43.7 fL (36.4-46.3); Red Blood Count 5.12 M/uL (4.2-5.4); White Blood Count 12.15 K/uL (4.8-10.8)
[2020-05-15 10:44] LABS: Albumin Level 4.4 gm/dl (3.4-5.0); BUN Creatinine Ratio 17.4 (10-20); Calcium 10.5 mg/dl (8.5-10.1); Creatinine Clr Calc Pharmacy 92.7 ml/min; Est GFR (African American) 90.7; Est GFR (Non-African American) 78.2; Potassium 4.4 mmol/L (3.5-5.1)
[2020-05-15 10:52] LABS: Bilirubin,Total 0.6 mg/dl (0.2-1); Globulin 4.3 gm/dl (2.5-4.0); Total Protein 8.7 gm/dl (6.4-8.2)
[2020-05-15] MEDS ORDERED: IOVERSOL 100ml IV ONE (11:15)
[2020-05-15 11:17] LABS: Appearance Urine Clear (Clear); Bacteria Urine Automated Negative (Negative); Bilirubin Urine Negative (Negative); Blood Urine Negative (Negative); Cast Urine Automated 0 /lpf (0-5); Color Urine Yellow; Epithelial Cell Urine Auto >30 /lpf (0-5); Glucose Urine UA Negative (Negative); Ketones Urine Negative (Negative); Leukocyte Esterase Urine Trace (Negative); Nitrite Urine Negative (Negative); Protein Urine Negative (Negative); RBC Urine Automated 0-4 /hpf (0-4); Urobilinogen Urine Negative (Negative)
--- NOTE | 2020-05-15 11:29 | CT Scan Report ---
ABDOMEN AND PELVIS CT WITH IV CONTRAST CT DOSE: 1146.96 mGycm HISTORY: severe generalized abd pain w/ bloating previous small bowel obstruction TECHNIQUE: Multiaxial CT images of the abdomen and pelvis were performed following the use of intrave nous contrast. A dose lowering technique was utilized adhering to the principles of ALARA. COMPARISON STUDY: Abdomen and pelvis CT 02/07/2018. FINDINGS: Multiple dilated gas and fluid-filled loops of small bowel to the level of the small bowel anastomosis within the left lower quadrant best seen on image 379. This corresponds to the transition point. The distal small bowel is decompressed. Therefore, these findings are consistent with a high- grade small bowel obstruction. In addition, there is a 2.4 cm coin shaped metallic foreign body withi n the lumen of the small bowel located at this transition point. This may also account for the small bowel obstruction. There is a small amount of pelvic free fluid and mild mesenteric edema. No pneumop eritoneum. No pneumatosis. The appendix is not identified and likely surgically absent. Prior hystere ctomy. The bladder is decompressed but appears unremarkable. Rectosigmoid anastomosis is noted. Multi ple colonic diverticula. No evidence for acute diverticulitis. Dilated small bowel loops within the d eep pelvis measuring up to 4.3 cm in diameter. Evidence for bilateral breast augmentation. The lung b ases are clear. No suspicious lytic or blastic osseous lesions. The stomach is also mildly distended fluid-filled. No retroperitoneal lymphadenopathy. Normal caliber abdominal aorta. Prior cholecystecto my. Hepatic steatosis. The adrenal glands, spleen, pancreas, and kidneys are unremarkable. IMPRESSION: 1. High-grade small bowel obstruction with the transition point located at the small bowel anastomosi s within the left lower quadrant. In addition, there is a 2.4 cm coin shaped metallic foreign body wi thin the lumen of the small bowel located at the transition point. This may also account for the smal l bowel obstruction. 2. Small amount of pelvic free fluid and mild mesenteric edema. No pneumoperitoneum or pneumatosis id entified at this time. 3. Hepatic steatosis. 4. Prior cholecystectomy, hysterectomy, and appendectomy. ACT 112: Negative or not required by law. Electronically signed by: Gene May M.D. 05/15/2020 11:27 AM
[2020-05-15] MEDS ORDERED: LORazepam 0.25 MG/0.5 ML VIAL IV STA (12:23)
--- NOTE | 2020-05-15 12:23 | History & Physical Report ---
Date of Service May 15, 2020 Assessment & Plan (1) SBO (small bowel obstruction): Suspect secondary to foreign object ?quarter NG tube with > 1L drainage in ER. IV fluids NPO Dilaudid for pain relief. Ondansetron for ongoing nausea Consult surgery - discussed case with Dr Nair (2) Anxiety disorder: Lorazepam 0.5 mg IV every 4 hourly as needed (3) DVT prophylaxis: SCDs. Given history of DVT consider chemical anticoagulation if surgery not required. Admission and Anticipated Discharge Date Admission Date: May 15, 2020 History of Present Illness Chief Complaint: Abdominal pain, distention, nausea Primary Care Provider: Milton Arguelles, III, ABDIRAHMAN Annalisa Downey is a 50 year old female who presents to the ER with acute onset abdominal pain, distension and nausea starting this morning. She has a significant history of diverticulitis with diverting colostomy and subsequent reversal, hysterectomy, appendectomy, cholecystectomy and small bowel obstruction secondary to lesions. Abdominal pain is generalized severity 5/10 currently, 10/10 on arrival to the ER. Due to her history of diverticulitis she did take a dose of ciprofloxacin or metronidazole this morning. In the ER CT abdomen pelvis with IV contrast was concerning for small bowel obstruction secondary to a foreign body the size of a quarter. The patient does not remember swallowing anything and has been cooking her own meals. She does allude to eating quickly however. Allergies Allergy/AdvReac Type Severity Reaction Status Date / Time adhesive Allergy Mild skin rash, Verified 05/15/20 11:03 and sore Home Medications Medication Instructions Recorded Confirmed Type biotin 1 mg PO QAM 06/02/18 05/15/20 History Saccharomyces boulardii 250 mg 250 mg PO QAM cap 09/24/18 05/15/20 History capsule multivitamin 1 tab PO QAM 10/28/18 05/15/20 History ciprofloxacin HCl 500 mg tablet 500 mg PO Q12H #20 tab 09/19/19 05/15/20 Rx alprazolam 0.5 mg tablet See Rx Instructions PO DAILY PRN 12/20/19 05/15/20 Rx #90 tab ondansetron HCl 4 mg tablet 4 mg PO Q6H #30 tab 12/28/19 05/15/20 Rx loratadine 10 mg tablet 10 mg PO QAM 03/15/20 05/15/20 History ngwiime-nxmxvqgewj-KZC-caffeine 30 1 - 2 cap PO .COMPLEX PRN #30 cap 05/14/20 05/15/20 Rx mg-50 mg-325 mg-40 mg capsule doxycycline hyclate 50 mg PO HS 05/15/20 05/15/20 History escitalopram oxalate 5 mg PO QAM 05/15/20 05/15/20 History Past Med/Surg History Medical History (Updated 05/16/20 @ 11:48 by Uday Arambula MD) Allergic rhinitis Anxiety Anxiety disorder Doing well on as needed Xanax. No medication changes at this time. Will re- evaluate this fall. Diverticulitis DVT (deep venous thrombosis) 1993 BILAT BEHIND KNEES (FROM CONTROL) Dyslipidemia Endometriosis Lupus anticoagulant disorder SBO (small bowel obstruction) Temporomandibular joint disorder Urinary urgency Surgical History Ganglion cyst History of appendectomy History of breast augmentation History of bunionectomy RT History of cholecystectomy History of colonoscopy History of esophagogastroduodenoscopy (EGD) History of hemicolectomy History of hemicolectomy History of hysterectomy History of nasal septoplasty History of tooth extraction History of ventral hernia repair Hx of breast surgery Hx of LASIK S/P cholecystectomy 05/2016 S/P colon resection 2013 BOWEL RESECTION AND Bowel resection due to recurrent diverticulitis with ileostomy placement 05/2016 and subsequent reversal S/P hernia repair Hernia surgery x 2 02/2017, 04/2017 - complicated by seroma formation requiring a wound vac Status post epigastric hernia repair, follow-up exam Family History Grandfather (Paternal) Family history of diabetes mellitus Mother Family history of esophageal cancer POSSIBLY Other Abdominal wall hernia Acute diverticulitis Acute postoperative abdominal pain Closed head injury Constipation Contusion of left hip Contusion of right shoulder Contusion of soft tissue Encounter for removal of nasal packing Epistaxis Fall Gallstones Nausea Postoperative abdominal pain Right ovarian cyst Sigmoid diverticulitis Small bowel obstruction Denies family history of Ovarian cancer Prostate cancer Myocardial infarction Breast cancer Colorectal cancer Social History Smoking Status: Never smoker Second Hand Exposure: Yes (AT WORK); Hx Alcohol Use: Yes Alcohol type: beer and wine Hx Substance Use: No Preferred Language: Luxembourgish Communication Ability: Effective Visual Impairment: No Limitations Hearing Ability: Normal Sports Therapist Required: No Beliefs That Will Affect Care: None marital status: Single Current Living Situation: Significant Other current occupational status: employed current occupation: [employer] Other Information That Helps Us Care for You: No Feels Safe at Home: Yes Safety Concerns: Feels Safe At This Time Assistive Devices: None Review of Systems Review of Systems: Continued but improving right leg pain from residual hematoma after falling on April 26 from a mechanical fall up a step. Physical Exam Constitutional: well developed and well nourished; no acute distress Eyes: + anicteric sclerae; normal pupil size ENMT: external ear and nose normal, oropharynx normal Neck: trachea midline, no thyromegaly Respiratory: normal respiratory effort, lungs clear to auscultation Cardiovascular: RRR, no murmur, no edema Gastrointestinal (Abdomen): Inspection/Auscultation: + abdomen distended and + hypoactive bowel sounds Percussion/Palpation: + abdomen tender (Generalized), + guarding and abdomen soft; abdomen not rigid Musculoskeletal: no cyanosis or clubbing, extremities motor strength 5/5 Skin: Trauma: + hematoma (Resolving hematoma on right leg below-knee, approximately 10 cm in circumfe) Neurologic: moves all extremities and awake; no focal motor deficits and not confused Psychiatric: A+Ox3, euthymic affect Results & Data Results & Data ([facility]) Vital Signs (Past 12 Hours) Vital Signs Temp Pulse Pulse Resp BP BP Pulse Ox 05/15/20 11:53 93 H 20 110/79 99 05/15/20 10:57 95 H 18 118/72 93 05/15/20 10:30 86 14 118/72 95 05/15/20 10:21 80 15 136/89 95 05/15/20 09:54 36.7 C 113 H 24 138/99 100 Diagnostic Findings ABDOMEN AND PELVIS CT WITH IV CONTRAST IMPRESSION: 1. High-grade small bowel obstruction with the transition point located at the small bowel anastomosis within the left lower quadrant. In addition, there is a 2.4 cm coin shaped metallic foreign body within the lumen of the small bowel located at the transition point. This may also account for the small bowel obstruction. 2. Small amount of pelvic free fluid and mild mesenteric edema. No pneumoperitoneum or pneumatosis identified at this time. 3. Hepatic steatosis. 4. Prior cholecystectomy, hysterectomy, and appendectomy. Medications Administered ER medications given: NSS bolus 2 L Code Status & VTE Plan Code Status Full VTE Prophylaxis Plan VTE Prophylaxis will be ordered: Yes Reason for no VTE drug order: Treatment not indicated PG Care Time/CCT Total # of Minutes Spent Total Time Spent with Patient: Total time spent is greater than 50% in coordination of care (as documented) at patient's floor/unit and/or counseling patient: Coding Level of Care Code 43102 Initial Inpt Care Lvl 2 Diagnoses SBO (small bowel obstruction) K56.609 Anxiety disorder F41.9 DVT prophylaxis Z29.9
--- NOTE | 2020-05-15 13:22 | XRay Report ---
XR KUB/Abdomen 1 view CLINICAL HISTORY: ng tube placement COMPARISON STUDY: CT scan performed the same day FINDINGS: There is contrast within the renal collecting systems and bladder secondary to a prior CT s can. There is a nasogastric tube with its tip at the level the gastric cardia. There are mildly dilat ed small bowel loops consistent with the patient's reported small bowel obstruction. There is a coin shaped metallic foreign body projected over the left superior aspect of the bladder. IMPRESSION: 1. Nasogastric tube within the stomach 2. Small bowel obstructive pattern 3. Chinle shaped metallic foreign body within the pelvis. ACT 112: Negative or not required by law. Electronically signed by: Ricky Vega M.D. 05/15/2020 1:21 PM
[2020-05-15 13:23] LABS: iSTAT Creatinine 0.6 mg/dl (0.6-1.3); iSTAT Ionized Calcium 1.19 mmol/l (1.12-1.32); iSTAT Potassium 4.5 mmol/L (3.3-5.0)
--- NOTE | 2020-05-15 14:21 | Surgery Consultation ---
Date of Consultation May 15, 2020 Assessment & Plan (1) SBO (small bowel obstruction): pt is a 50 year-old female who presents ER with acute abdominal pain, nausea, vomiting, IMP: SBO, foreign body in small bowel, Plan, no emergent surgery indication now, I agree with that hospitalist will admit pt to hospital conservative treatment first, NPO, IV fluid, repeat labs and KUB in morning, D/W possible surgery treatment for remove foreign body if pt's symptoms are not get better, D/W benefits, risks and alternatives of the surgery, pt understood, she agrees with the treatment plan, I answered all questions, Present on Admission?: Yes (2) Foreign body in intestine: History of Present Illness History of Present Illness CHIEF COMPLAINT: Abdominal pain HPI: Patient is a 50-year-old female with a past medical history of diverticulitis with a resection, appendectomy, cholecystectomy and partial hysterectomy who presents the ER for abdominal pain. This started this morning around 4 AM. Symptoms have been getting worse. She admits to vomiting. She is unable to eat anything or drink anything. Bili has been swelling. Has not had a bowel movement since yesterday and has not been passing gas. Denies any dysuria urgency or frequency. Pain to 10 out of 10 and worse in the left upper quadrant and sharp and stabbing in nature. No other exacerbating or remitting factors. I ( Felipe Nair MD ) got a call for consult SBO, foreign body in pelvis area, I reviewed pt's H/P, labs, CT scan with pt, Allergies Allergy/AdvReac Type Severity Reaction Status Date / Time adhesive Allergy Mild skin rash, Verified 05/15/20 11:03 and sore Home Medications Medication Instructions Recorded Confirmed Type biotin 1 mg PO QAM 06/02/18 05/15/20 History Saccharomyces boulardii 250 mg 250 mg PO QAM cap 09/24/18 05/15/20 History capsule multivitamin 1 tab PO QAM 10/28/18 05/15/20 History ciprofloxacin HCl 500 mg tablet 500 mg PO Q12H #20 tab 09/19/19 05/15/20 Rx alprazolam 0.5 mg tablet See Rx Instructions PO DAILY PRN 12/20/19 05/15/20 Rx #90 tab ondansetron HCl 4 mg tablet 4 mg PO Q6H #30 tab 12/28/19 05/15/20 Rx loratadine 10 mg tablet 10 mg PO QAM 03/15/20 05/15/20 History ohmshxz-hfekfysnwv-JUQ-caffeine 30 1 - 2 cap PO .COMPLEX PRN #30 cap 05/14/20 05/15/20 Rx mg-50 mg-325 mg-40 mg capsule doxycycline hyclate 50 mg PO HS 05/15/20 05/15/20 History escitalopram oxalate 5 mg PO QAM 05/15/20 05/15/20 History Past Med/Surg History Medical History (Updated 05/01/20 @ 13:42 by ABDIRAHMAN Glynn) Allergic rhinitis Anxiety Anxiety disorder Doing well on as needed Xanax. No medication changes at this time. Will re- evaluate this fall. Diverticulitis DVT (deep venous thrombosis) 1993 BILAT BEHIND KNEES (FROM CONTROL) Dyslipidemia Endometriosis Lupus anticoagulant disorder SBO (small bowel obstruction) Temporomandibular joint disorder Urinary urgency Surgical History Ganglion cyst History of appendectomy History of breast augmentation History of bunionectomy RT History of cholecystectomy History of colonoscopy History of esophagogastroduodenoscopy (EGD) History of hemicolectomy History of hemicolectomy History of hysterectomy History of nasal septoplasty History of tooth extraction History of ventral hernia repair Hx of breast surgery Hx of LASIK S/P cholecystectomy 05/2016 S/P colon resection 2013 BOWEL RESECTION AND Bowel resection due to recurrent diverticulitis with ileostomy placement 05/2016 and subsequent reversal S/P hernia repair Hernia surgery x 2 02/2017, 04/2017 - complicated by seroma formation requiring a wound vac Status post epigastric hernia repair, follow-up exam Family History Grandfather (Paternal) Family history of diabetes mellitus Mother Family history of esophageal cancer POSSIBLY Other Abdominal wall hernia Acute diverticulitis Acute postoperative abdominal pain Closed head injury Constipation Contusion of left hip Contusion of right shoulder Contusion of soft tissue Encounter for removal of nasal packing Epistaxis Fall Gallstones Nausea Postoperative abdominal pain Right ovarian cyst Sigmoid diverticulitis Small bowel obstruction Denies family history of Ovarian cancer Prostate cancer Myocardial infarction Breast cancer Colorectal cancer Social History Smoking Status: Never smoker Second Hand Exposure: Yes (AT WORK); Hx Alcohol Use: Yes Alcohol type: wine Hx Substance Use: No Preferred Language: Macanese Communication Ability: Effective Visual Impairment: No Limitations Hearing Ability: Normal Bit Tripoler Required: No Beliefs That Will Affect Care: None marital status: Single Current Living Situation: Alone current occupational status: employed current occupation: [employer] Feels Safe at Home: Yes Assistive Devices: Contacts ROS: See above HPI for pertinent positives & negatives. A total of 10 systems reviewed and were otherwise negative. Allergies Allergy/AdvReac Type Severity Reaction Status Date / Time adhesive Allergy Mild skin rash, Verified 05/15/20 11:03 and sore Home Medications Medication Instructions Recorded Confirmed Type biotin 1 mg PO QAM 06/02/18 05/15/20 History Saccharomyces boulardii 250 mg 250 mg PO QAM cap 09/24/18 05/15/20 History capsule multivitamin 1 tab PO QAM 10/28/18 05/15/20 History ciprofloxacin HCl 500 mg tablet 500 mg PO Q12H #20 tab 09/19/19 05/15/20 Rx alprazolam 0.5 mg tablet See Rx Instructions PO DAILY PRN 12/20/19 05/15/20 Rx #90 tab ondansetron HCl 4 mg tablet 4 mg PO Q6H #30 tab 12/28/19 05/15/20 Rx loratadine 10 mg tablet 10 mg PO QAM 03/15/20 05/15/20 History xaiiybd-fnwejqsnpk-KGM-caffeine 30 1 - 2 cap PO .COMPLEX PRN #30 cap 05/14/20 05/15/20 Rx mg-50 mg-325 mg-40 mg capsule doxycycline hyclate 50 mg PO HS 05/15/20 05/15/20 History escitalopram oxalate 5 mg PO QAM 05/15/20 05/15/20 History Patient History Medical History (Updated 05/15/20 @ 14:29 by Felipe Nair MD) Allergic rhinitis Anxiety Anxiety disorder Doing well on as needed Xanax. No medication changes at this time. Will re- evaluate this fall. Diverticulitis DVT (deep venous thrombosis) 1993 BILAT BEHIND KNEES (FROM CONTROL) Dyslipidemia Endometriosis Lupus anticoagulant disorder SBO (small bowel obstruction) Temporomandibular joint disorder Urinary urgency Surgical History Ganglion cyst History of appendectomy History of breast augmentation History of bunionectomy RT History of cholecystectomy History of colonoscopy History of esophagogastroduodenoscopy (EGD) History of hemicolectomy History of hemicolectomy History of hysterectomy History of nasal septoplasty History of tooth extraction History of ventral hernia repair Hx of breast surgery Hx of LASIK S/P cholecystectomy 05/2016 S/P colon resection 2014 BOWEL RESECTION AND Bowel resection due to recurrent diverticulitis with ileostomy placement 05/2016 and subsequent reversal S/P hernia repair Hernia surgery x 2 02/2017, 04/2017 - complicated by seroma formation requiring a wound vac Status post epigastric hernia repair, follow-up exam Family History Grandfather (Paternal) Family history of diabetes mellitus Mother Family history of esophageal cancer POSSIBLY Other Abdominal wall hernia Acute diverticulitis Acute postoperative abdominal pain Closed head injury Constipation Contusion of left hip Contusion of right shoulder Contusion of soft tissue Encounter for removal of nasal packing Epistaxis Fall Gallstones Nausea Postoperative abdominal pain Right ovarian cyst Sigmoid diverticulitis Small bowel obstruction Denies family history of Ovarian cancer Prostate cancer Myocardial infarction Breast cancer Colorectal cancer Social History Smoking Status: Never smoker Second Hand Exposure: Yes (AT WORK); Hx Alcohol Use: Yes Alcohol type: wine Hx Substance Use: No Preferred Language: Macanese Communication Ability: Effective Visual Impairment: No Limitations Hearing Ability: Normal Bit Tripoler Required: No Beliefs That Will Affect Care: None marital status: Single Current Living Situation: Alone current occupational status: employed current occupation: [employer] Feels Safe at Home: Yes Assistive Devices: Contacts Review of Systems Review of Systems: All systems reviewed & are unremarkable except as noted in HPI & below Constitutional: as per Subjective / HPI Eyes: as per Subjective / HPI Ear, Nose, Mouth, Throat: as per Subjective / HPI Respiratory: as per Subjective / HPI Cardiovascular: Additional Comments: dyslipidemia, DVT Gastrointestinal: as per Subjective / HPI Genitourinary: as per Subjective / HPI Musculoskeletal: as per Subjective / HPI Integumentary: as per Subjective / HPI Neurologic: as per Subjective / HPI Psychiatric: as per Subjective / HPI anxiety disorder Endocrine: as per Subjective / HPI Hematologic / Lymphatic: as per Subjective / HPI Allergy / Immunological: as per Subjective / HPI lupus anticoagulant disorder Physical Exam Constitutional: WD/WN, vitals as above well developed and well nourished Eyes: PERRL, conjunctivae normal, anicteric sclerae ENMT: external ear and nose normal, oropharynx normal Neck: trachea midline, no thyromegaly Respiratory: normal respiratory effort, lungs clear to auscultation normal respiratory effort Cardiovascular: RRR, no murmur, no edema Rate/Rhythm: regular rate and regular rhythm Heart Sounds: normal S1 and normal S2 Gastrointestinal (Abdomen): normal bowel sounds, soft, nontender, no hepatosplenomegaly Musculoskeletal: no cyanosis or clubbing, extremities motor strength 5/5 Skin: no rashes, warm and dry Neurologic: patellar DTR's 2+ bilat, sensation intact Psychiatric: Orientation: alert and oriented x 3 Results & Data ([facility]) Vital Signs (Past 12 Hours) Vital Signs Temp Pulse Pulse Resp BP BP Pulse Ox 05/15/20 14:00 99 H 14 131/89 95 05/15/20 13:30 96 H 12 137/94 95 05/15/20 13:00 92 H 13 111/83 93 05/15/20 12:31 104 H 17 05/15/20 12:30 100 H 16 109/84 98 05/15/20 12:00 90 15 134/92 97 05/15/20 11:53 93 H 20 110/79 99 05/15/20 11:51 90 19 110/79 99 05/15/20 10:57 95 H 18 118/72 93 05/15/20 10:30 86 14 118/72 95 05/15/20 10:21 80 15 136/89 95 05/15/20 09:54 36.7 C 113 H 24 138/99 100 Laboratory Results Abnormal lab results 05/15/20 05/15/20 05/15/20 Range/Units 10:13 10:13 10:22 WBC 12.15 H (4.8-10.8) K/uL POC Hgb 17.0 H (12.0-16.0) g/dl POC Hct 50 H (37-47) % Neut # (Auto) 9.18 H (1.4-6.5) K/uL [place] # (Auto) 0.75 H (0.11-0.59) K/uL Sodium 133 L (136-145) mmol/L POC Anion Gap 15.0 L (16-25) mmol/L Glucose 113 H (70-99) mg/dl POC Glucose (other) 118 H (70-99) mg/dl Calcium 10.5 H (8.5-10.1) mg/dl AST 100 H (15-37) U/L ALT 224 H (12-78) U/L Total Protein 8.7 H (6.4-8.2) gm/dl Globulin 4.3 H (2.5-4.0) gm/dl Ur Leukocyte Esterase (Negative) U Epithel Cells (Auto) (0-5) /lpf 05/15/20 Range/Units 11:00 WBC (4.8-10.8) K/uL POC Hgb (12.0-16.0) g/dl POC Hct (37-47) % Neut # (Auto) (1.4-6.5) K/uL [place] # (Auto) (0.11-0.59) K/uL Sodium (136-145) mmol/L POC Anion Gap (16-25) mmol/L Glucose (70-99) mg/dl POC Glucose (other) (70-99) mg/dl Calcium (8.5-10.1) mg/dl AST (15-37) U/L ALT (12-78) U/L Total Protein (6.4-8.2) gm/dl Globulin (2.5-4.0) gm/dl Ur Leukocyte Esterase Trace H (Negative) U Epithel Cells (Auto) >30 H (0-5) /lpf Diagnostic Findings XR KUB/Abdomen 1 view CLINICAL HISTORY: ng tube placement COMPARISON STUDY: CT scan performed the same day FINDINGS: There is contrast within the renal collecting systems and bladder secondary to a prior CT scan. There is a nasogastric tube with its tip at the level the gastric cardia. There are mildly dilated small bowel loops consistent with the patient's reported small bowel obstruction. There is a coin shaped metallic foreign body projected over the left superior aspect of the bladder. IMPRESSION: 1. Nasogastric tube within the stomach 2. Small bowel obstructive pattern 3. Harmony shaped metallic foreign body within the pelvis. ABDOMEN AND PELVIS CT WITH IV CONTRAST CT DOSE: 1146.96 mGycm HISTORY: severe generalized abd pain w/ bloating previous small bowel obstruction TECHNIQUE: Multiaxial CT images of the abdomen and pelvis were performed following the use of intravenous contrast. A dose lowering technique was utilized adhering to the principles of ALARA. COMPARISON STUDY: Abdomen and pelvis CT 02/07/2018. FINDINGS: Multiple dilated gas and fluid-filled loops of small bowel to the level of the small bowel anastomosis within the left lower quadrant best seen on image 379. This corresponds to the transition point. The distal small bowel is decompressed. Therefore, these findings are consistent with a high-grade small bowel obstruction. In addition, there is a 2.4 cm coin shaped metallic foreign body within the lumen of the small bowel located at this transition point. This may also account for the small bowel obstruction. There is a small amount of pelvic free fluid and mild mesenteric edema. No pneumoperitoneum. No pneumatosis. The appendix is not identified and likely surgically absent. Prior hysterectomy. The bladder is decompressed but appears unremarkable. Rectosigmoid anastomosis is noted. Multiple colonic diverticula. No evidence for acute diverticulitis. Dilated small bowel loops within the deep pelvis measuring up to 4.3 cm in diameter. Evidence for bilateral breast augmentation. The lung bases are clear. No suspicious lytic or blastic osseous lesions. The stomach is also mildly distended fluid-filled. No retroperitoneal lymphadenopathy. Normal caliber abdominal aorta. Prior cholecystectomy. Hepatic steatosis. The adrenal glands, spleen, pancreas, and kidneys are unremarkable. IMPRESSION: 1. High-grade small bowel obstruction with the transition point located at the small bowel anastomosis within the left lower quadrant. In addition, there is a 2.4 cm coin shaped metallic foreign body within the lumen of the small bowel located at the transition point. This may also account for the small bowel obstruction. 2. Small amount of pelvic free fluid and mild mesenteric edema. No pneumoperitoneum or pneumatosis identified at this time. 3. Hepatic steatosis. 4. Prior cholecystectomy, hysterectomy, and appendectomy.
[2020-05-15] MEDS ORDERED: ONDANSETRON INJ 2 MG/ML 2 ML VIAL IV PRN (14:40)
[2020-05-15] MEDS ORDERED: LORazepam 0.5 MG/1 ML VIAL IV PRN (14:40)
[2020-05-15] MEDS ORDERED: ACETAMINOPHEN 1,000 MG/100 ML VIAL IV PRN (14:40)
[2020-05-15] MEDS: LACTATED RINGER'S 1,000 ML IV SCH ×2 (15:51→23:41)
[2020-05-15] MEDS: HYDROmorphone INJ 0.5 MG/0.5 ML SYR IV PRN ×2 (16:02→21:31)
[2020-05-15] MEDS ORDERED: CHLORASEPTIC 1.4% SOLN 180 ML BTL MT PRN (16:28)
[2020-05-15] MEDS: LORazepam 0.5 MG/1 ML VIAL IV PRN (19:14)
[2020-05-15] MEDS ORDERED: PROMETHAZINE HCL 12.5 MG in SODIUM CHLORIDE 0.9% 50 ML IV PRN (21:42)
[2020-05-15] MEDS: ONDANSETRON INJ 2 MG/ML 2 ML VIAL IV PRN (21:57)
[2020-05-16] MEDS: ONDANSETRON INJ 2 MG/ML 2 ML VIAL IV PRN ×2 (04:57→19:12)
[2020-05-16] MEDS: HYDROmorphone INJ 0.5 MG/0.5 ML SYR IV PRN ×3 (04:57→19:07)
[2020-05-16 08:23] LABS: Basophils # (auto) 0.01 K/uL (0-0.2); Basophils % (auto) 0.1 %; Eosinophils # (auto) 0.09 K/uL (0-0.5); Eosinophils % (auto) 1.2 %; Hematocrit (blood only) 38.9 % (37-47); Hemoglobin 12.7 g/dL (12.0-16.0); Immature Granulocytes # (auto) 0.01 K/uL (0.00-0.02); Immature Granulocytes % (auto) 0.1 %; Lymphocytes % (auto) 23.8 %; Mean Corpuscular Hemoglobin 30.2 pg (25-34); Mean Corpuscular Hgb Conc 32.6 g/dL (32-36); Mean Corpuscular Volume 92.4 fL (80-100); Mean Platelet Volume 9.6 fL (7.4-10.4); Monocytes % (auto) 15.9 %; Neutrophils # (auto) 4.44 K/uL (1.4-6.5); Neutrophils % (auto) 58.9 %; Platelet Count 256 K/uL (130-400); RDW Coefficient of Variation 13.6 % (11.5-14.5); Red Blood Count 4.21 M/uL (4.2-5.4); White Blood Count 7.55 K/uL (4.8-10.8)
[2020-05-16] MEDS: LACTATED RINGER'S 1,000 ML IV SCH ×3 (08:50→23:19)
[2020-05-16 08:51] LABS: BUN Creatinine Ratio 18.8 (10-20); Calcium 8.5 mg/dl (8.5-10.1); Creatinine Clr Calc Pharmacy 104.9 ml/min; Est GFR (African American) 105.3; Est GFR (Non-African American) 90.8; Potassium 3.9 mmol/L (3.5-5.1)
--- NOTE | 2020-05-16 09:51 | XRay Report ---
XR KUB/Abdomen 1 view CLINICAL HISTORY: Small bowel obstruction COMPARISON STUDY: 6 05/15/2020 FINDINGS: There are surgical clips within the right upper quadrant consistent with a prior cholecyste ctomy. There is a nasogastric tube with its tip in the stomach. There are dilated small bowel loops m easuring up to 47 mm. There is a 3 cm coin shaped metallic foreign body within the right mid abdomen laterally. This is not possible to localize with certainty, but this may have moved into the ascendin g colon. Follow-up radiography recommended. IMPRESSION: 1. Small bowel obstructive pattern 2. 3 cm coin shaped metallic foreign body within the right mid abdomen laterally. ACT 112: Negative or not required by law. Electronically signed by: Ricky Vega M.D. 05/16/2020 9:50 AM
--- NOTE | 2020-05-16 12:08 | Surgery Progress Note ---
Date of Service May 16, 2020 Assessment & Plan (1) SBO (small bowel obstruction): pt is a 50 year-old female who presents ER with acute abdominal pain, nausea, vomiting. CT scan showing evidence of metallic foreign body at site of SBO. History of multiple abdominal surgeries including colosectomy with ileostomy and reversal, cholecystectomy, hernia repair with mesh. 05/16/2020: No leukocytosis abdomial pain persists NGT with bilious output, 425 cc last shift, 2 liters total +flatus no peritonitis KUB this am showing persistent SBO with 3 cm coin shaped metallic foreign body within right mid abdomen laterally which could be located in ascending colon. (seen in pelvis on prior KUB) Plan: Will continue conservative measures with NPO, bowel rest, NGT to LIS, pain management as needed. Will repeat KUB tomorrow am to assess location of foreign body , if looks to be in colon will likely not need surgery as it should pass on its own. ambulate hallway to increase GI motility, clamp NGT to ambulate continue medical management repeat am labs since NPO (Cbc, bmp) (2) Foreign body in intestine: plan as above Dr. Nair has seen and examined patient, agrees with above. Admission and Anticipated Discharge Date Admission Date: May 15, 2020 Subjective still having pain throughout abdomen, really tender throat hurts and gags when lying flat due to NGT feeling very congested with headache passed small amount of gas but no bowel movement Physical Exam Constitutional: WD/WN, vitals as above Respiratory: normal respiratory effort; no respiratory distress and no labored breathing Gastrointestinal (Abdomen): Inspection/Auscultation: + abdominal surgical scar (multiple surgical scars present); abdomen not distended Percussion/Palpation: + abdomen tender (generalized) and abdomen soft; no guarding and abdomen not rigid NGT present with bilious output Skin: no rashes, warm and dry Psychiatric: A+Ox3, euthymic affect Results & Data ([facility]) Vital Signs (Past 12 Hours) Vital Signs Temp Pulse Resp BP Pulse Ox 05/16/20 07:22 36.9 C 92 H 16 124/77 98 Laboratory Results 05/16/20 05/16/20 05/15/20 Range/Units 08:06 08:06 12:36 WBC 7.55 (4.8-10.8) K/uL RBC 4.21 (4.2-5.4) M/uL Hgb 12.7 (12.0-16.0) g/dL POC Hgb (12.0-16.0) g/dl Hct 38.9 (37-47) % POC Hct (37-47) % MCV 92.4 (80-100) fL MCH 30.2 (25-34) pg MCHC 32.6 (32-36) g/dL RDW Std Deviation 46.0 (36.4-46.3) fL RDW Coeff of Silvia 13.6 (11.5-14.5) % Plt Count 256 (130-400) K/uL MPV 9.6 (7.4-10.4) fL Immature Gran % (Auto) 0.1 % Neut % (Auto) 58.9 % Lymph % (Auto) 23.8 % [place] % (Auto) 15.9 % Eos % (Auto) 1.2 % Baso % (Auto) 0.1 % Neut # (Auto) 4.44 (1.4-6.5) K/uL Lymph # (Auto) 1.80 (1.2-3.4) K/uL [place] # (Auto) 1.20 H (0.11-0.59) K/uL Eos # (Auto) 0.09 (0-0.5) K/uL Baso # (Auto) 0.01 (0-0.2) K/uL Immature Gran # (Auto) 0.01 (0.00-0.02) K/uL POC Sodium (135-144) mmol/L Sodium 137 (136-145) mmol/L POC Potassium (3.3-5.0) mmol/L Potassium 3.9 (3.5-5.1) mmol/L POC Chloride (101-112) mmol/L Chloride 103 (98-107) mmol/L Carbon Dioxide 30 (21-32) mmol/L POC Total CO2 (24-31) mmol/L Anion Gap 4.0 (3-11) POC Anion Gap (16-25) mmol/L POC BUN (7-18) mg/dl BUN 14 (7-18) mg/dl Creatinine 0.76 (0.6-1.2) mg/dl POC Creatinine (0.6-1.3) mg/dl Est Cr Clr Drug Dosing 104.9 ml/min Est GFR ( Amer) 105.3 Est GFR (Non-Af Amer) 90.8 BUN/Creatinine Ratio 18.8 (10-20) Glucose 106 H (70-99) mg/dl POC Glucose (other) (70-99) mg/dl Calcium 8.5 D (8.5-10.1) mg/dl POC Ioniz Calcium Brandon (1.12-1.32) mmol/l SARS-CoV-2 Ag (Rapid) Negative (Negative) 05/15/20 Range/Units 10:22 WBC (4.8-10.8) K/uL RBC (4.2-5.4) M/uL Hgb (12.0-16.0) g/dL POC Hgb 17.0 H (12.0-16.0) g/dl Hct (37-47) % POC Hct 50 H (37-47) % MCV (80-100) fL MCH (25-34) pg MCHC (32-36) g/dL RDW Std Deviation (36.4-46.3) fL RDW Coeff of Silvia (11.5-14.5) % Plt Count (130-400) K/uL MPV (7.4-10.4) fL Immature Gran % (Auto) % Neut % (Auto) % Lymph % (Auto) % [place] % (Auto) % Eos % (Auto) % Baso % (Auto) % Neut # (Auto) (1.4-6.5) K/uL Lymph # (Auto) (1.2-3.4) K/uL [place] # (Auto) (0.11-0.59) K/uL Eos # (Auto) (0-0.5) K/uL Baso # (Auto) (0-0.2) K/uL Immature Gran # (Auto) (0.00-0.02) K/uL POC Sodium 135 (135-144) mmol/L Sodium (136-145) mmol/L POC Potassium 4.5 (3.3-5.0) mmol/L Potassium (3.5-5.1) mmol/L POC Chloride 101 (101-112) mmol/L Chloride (98-107) mmol/L Carbon Dioxide (21-32) mmol/L POC Total CO2 25 (24-31) mmol/L Anion Gap (3-11) POC Anion Gap 15.0 L (16-25) mmol/L POC BUN 16 (7-18) mg/dl BUN (7-18) mg/dl Creatinine (0.6-1.2) mg/dl POC Creatinine 0.6 (0.6-1.3) mg/dl Est Cr Clr Drug Dosing ml/min Est GFR ( Amer) Est GFR (Non-Af Amer) BUN/Creatinine Ratio (10-20) Glucose (70-99) mg/dl POC Glucose (other) 118 H (70-99) mg/dl Calcium (8.5-10.1) mg/dl POC Ioniz Calcium [place] 1.19 (1.12-1.32) mmol/l SARS-CoV-2 Ag (Rapid) (Negative) Diagnostic Findings XR KUB/Abdomen 1 view CLINICAL HISTORY: Small bowel obstruction COMPARISON STUDY: 6 05/15/2020 FINDINGS: There are surgical clips within the right upper quadrant consistent with a prior cholecystectomy. There is a nasogastric tube with its tip in the stomach. There are dilated small bowel loops measuring up to 47 mm. There is a 3 cm coin shaped metallic foreign body within the right mid abdomen laterally. This is not possible to localize with certainty, but this may have moved into the ascending colon. Follow-up radiography recommended. IMPRESSION: 1. Small bowel obstructive pattern 2. 3 cm coin shaped metallic foreign body within the right mid abdomen laterally.
[2020-05-16] MEDS: KETOROLAC TROMETHAMINE 15 MG/ML VIAL IV PRN ×2 (12:48→23:14)
--- NOTE | 2020-05-16 13:02 | Hospitalist Progress Note ---
Date of Service May 16, 2020 Assessment & Plan (1) SBO (small bowel obstruction): Secondary to foreign object ?quarter - patient has no idea how it could have gotten there. NG tube with > 1L drainage in ER - now slowing down Continue IV fluids, NG tube, encourage ambulation NPO Dilaudid for pain relief. Ondansetron for ongoing nausea Surgery consulted - continue conservative measures for now (2) Anxiety disorder: Lorazepam 0.5 mg IV every 4 hourly as needed (3) DVT prophylaxis: ambulation, SCDs, heparin subq Admission and Anticipated Discharge Date Admission Date: May 15, 2020 Supervising Physician Co-Signing Physician Notes chart reviewed and case d/w S Maynor GARY. As above Subjective Ms. Downey is having some abdominal pain and a sinus headache today. No nausea. Review of Systems Constitutional: no fever, no chills and no body aches Respiratory: no cough and no dyspnea Cardiovascular: no chest pain and no palpitations Gastrointestinal: as per Subjective / HPI Genitourinary: no dysuria and no urinary hesitancy Musculoskeletal: no back pain and no joint pain Integumentary: no rash Physical Exam Physical Exam: General: no distress Eyes: normal inspection, PERLL Respiratory: chest non tender, clear to auscultation, normal breath sounds, no respiratory distress, no accessory muscle use Cardiac: regular rate and rhythm, no rub or gallop, no murmur, no edema, no jvd GI/: hypoactive bowel sounds, generalized abdominal tenderness, soft, mild distension Extremities: normal range of motion, normal strength, non tender Neuro/Psych: alert and oriented x 3, normal mood and affect Skin: normal color, dry Results & Data Results & Data ([facility]) Vital Signs (Past 12 Hours) Vital Signs Temp Pulse Resp BP Pulse Ox 05/16/20 07:22 36.9 C 92 H 16 124/77 98 PG Care Time/CCT Total # of Minutes Spent Total Time Spent with Patient: Total time spent is greater than 50% in coordination of care (as documented) at patient's floor/unit and/or counseling patient: Coding Level of Care Code 80549 Subseq Hosp Care Lvl 2 Diagnoses SBO (small bowel obstruction) K56.609 Anxiety disorder F41.9 DVT prophylaxis Z29.9
[2020-05-16] MEDS: HEPARIN SOD 5,000 UNIT/0.5 ML VIAL SQ SCH ×2 (13:55→21:45)
[2020-05-17] MEDS: LORazepam 0.5 MG/1 ML VIAL IV PRN ×2 (01:34→10:58)
[2020-05-17] MEDS: HEPARIN SOD 5,000 UNIT/0.5 ML VIAL SQ SCH ×3 (06:04→20:02)
[2020-05-17] MEDS: KETOROLAC TROMETHAMINE 15 MG/ML VIAL IV PRN ×2 (06:04→19:57)
[2020-05-17] MEDS: LACTATED RINGER'S 1,000 ML IV SCH ×3 (06:04→20:03)
[2020-05-17 06:27] LABS: Hematocrit (blood only) 41.2 % (37-47); Mean Corpuscular Hemoglobin 29.5 pg (25-34); Mean Corpuscular Hgb Conc 31.6 g/dL (32-36); Mean Corpuscular Volume 93.4 fL (80-100); Mean Platelet Volume 9.9 fL (7.4-10.4); Platelet Count 269 K/uL (130-400); RDW Coefficient of Variation 13.3 % (11.5-14.5); RDW Standard Deviation 45.5 fL (36.4-46.3); Red Blood Count 4.41 M/uL (4.2-5.4)
[2020-05-17 07:00] LABS: Albumin Level 3.4 gm/dl (3.4-5.0); Bilirubin Direct 0.2 mg/dl (0-0.2); Creatinine Clr Calc Pharmacy 102.2 ml/min; Potassium 3.6 mmol/L (3.5-5.1)
[2020-05-17 07:15] LABS: Bilirubin,Total 0.9 mg/dl (0.2-1)
[2020-05-17] MEDS: HYDROmorphone INJ 0.5 MG/0.5 ML SYR IV PRN ×2 (08:05→17:49)
--- NOTE | 2020-05-17 08:15 | XRay Report ---
XR KUB/Abdomen 1 view CLINICAL HISTORY: Eval SBO and Foreign body location COMPARISON STUDY: 05/16/2020 FINDINGS: There is significant decrease in the previously identified small bowel dilatation. There is a residual 36 mm small bowel loop in the central abdomen. There is a coin shaped metallic foreign adrian dy projected over the lower sacrum to the right of midline. IMPRESSION: 1. Significant interval decrease in the previously identified small bowel dilatation with a residual 36 mm small bowel loop. 2. Gas within nondistended colon 3. The previously identified coin shaped metallic foreign body now projects over the lower sacrum to the right of midline ACT 112: Negative or not required by law. Electronically signed by: Ricky Vega M.D. 05/17/2020 8:13 AM
[2020-05-17] MEDS: FLUTICASONE PROPIONATE NA SPR 16 GM BTL SCH ×2 (08:53→20:01)
--- NOTE | 2020-05-17 11:02 | Gastrointestinal Consultation ---
Date of Consultation May 17, 2020 Assessment & Plan (1) SBO (small bowel obstruction): (2) Foreign body in intestine: Object appears to have moved to the rectosigmoid region. Small bowel obstruction improving as well. Unclear if the obstruction was due to the object or rather her multiple abdominal surgeries. This appears to be amenable to conservative management and will pass on its own. The patient requests a bowel prep be given to pass the object. This can be put through the NG if needed. Repeat KUB in AM to ensure the object has passed. If not passing, can consider a colonoscopy at that time. Contact us with worsening status changes or concerns at extension [phone] or [phone]. Supervising Physician Co-Signing Physician Notes I personally evaluated the patient and agree with the findings as documented by Khushi Sanchez, PAC Exam: abd: soft, nt, nd can give prep through NG tube (golytely 4L), check KUB in morning, will continue to monitor and await passage of foreign body. History of Present Illness Reason for Consultation: Foreign body Attending Physician: Samir Castaneda DO History of Present Illness Patient is a 50 yo female with a history of bowel resections due to complicated diverticulitis who is admitted with a small bowel obstruction. GI has been consulted due to concerns of a foreign metallic object that appears consistent with a quarter. She has no idea how this got in her digestive system and reports she has not intentionally ingested anything. Yesterday, the abdominal xray indicated a small bowel obstruction, but noted this foreign object in the ascending colon. Today, the obstruction has improved with NG tube drainage and the foreign body has moved to the rectosigmoid colon. She reports some abdominal tenderness. Last bowel movement was on 05/16/2019. She reports nausea. She requests a bowel prep to pass the foreign object. She denies no further issues at present. She has been seen by multiple general surgeons during this admission. Allergies Allergy/AdvReac Type Severity Reaction Status Date / Time adhesive Allergy Mild skin rash, Verified 05/15/20 11:03 and sore Home Medications Medication Instructions Recorded Confirmed Type biotin 1 mg PO QAM 06/02/18 05/15/20 History Saccharomyces boulardii 250 mg 250 mg PO QAM cap 09/24/18 05/15/20 History capsule multivitamin 1 tab PO QAM 10/28/18 05/15/20 History ciprofloxacin HCl 500 mg tablet 500 mg PO Q12H #20 tab 09/19/19 05/15/20 Rx alprazolam 0.5 mg tablet See Rx Instructions PO DAILY PRN 12/20/19 05/15/20 Rx #90 tab ondansetron HCl 4 mg tablet 4 mg PO Q6H #30 tab 12/28/19 05/15/20 Rx loratadine 10 mg tablet 10 mg PO QAM 03/15/20 05/15/20 History putyfyi-eefjpbdfxo-YVW-caffeine 30 1 - 2 cap PO .COMPLEX PRN #30 cap 05/14/20 05/15/20 Rx mg-50 mg-325 mg-40 mg capsule doxycycline hyclate 50 mg PO HS 05/15/20 05/15/20 History escitalopram oxalate 5 mg PO QAM 05/15/20 05/15/20 History Patient History Medical History (Updated 05/17/20 @ 11:12 by Khushi Sanchez PA-C) Allergic rhinitis Anxiety Anxiety disorder Doing well on as needed Xanax. No medication changes at this time. Will re- evaluate this fall. Diverticulitis DVT (deep venous thrombosis) 1993 BILAT BEHIND KNEES (FROM CONTROL) Dyslipidemia Endometriosis Lupus anticoagulant disorder SBO (small bowel obstruction) Temporomandibular joint disorder Urinary urgency Surgical History Ganglion cyst History of appendectomy History of breast augmentation History of bunionectomy RT History of cholecystectomy History of colonoscopy History of esophagogastroduodenoscopy (EGD) History of hemicolectomy History of hemicolectomy History of hysterectomy History of nasal septoplasty History of tooth extraction History of ventral hernia repair Hx of breast surgery Hx of LASIK S/P cholecystectomy 05/2016 S/P colon resection 2013 BOWEL RESECTION AND Bowel resection due to recurrent diverticulitis with ileostomy placement 05/2016 and subsequent reversal S/P hernia repair Hernia surgery x 2 02/2017, 04/2017 - complicated by seroma formation requiring a wound vac Status post epigastric hernia repair, follow-up exam Family History Grandfather (Paternal) Family history of diabetes mellitus Mother Family history of esophageal cancer POSSIBLY Other Abdominal wall hernia Acute diverticulitis Acute postoperative abdominal pain Closed head injury Constipation Contusion of left hip Contusion of right shoulder Contusion of soft tissue Encounter for removal of nasal packing Epistaxis Fall Gallstones Nausea Postoperative abdominal pain Right ovarian cyst Sigmoid diverticulitis Small bowel obstruction Denies family history of Ovarian cancer Prostate cancer Myocardial infarction Breast cancer Colorectal cancer Social History Smoking Status: Never smoker Second Hand Exposure: Yes (AT WORK); Hx Alcohol Use: Yes Alcohol type: beer and wine Hx Substance Use: No Preferred Language: Pashto Communication Ability: Effective Visual Impairment: No Limitations Hearing Ability: Normal Training Development Director Required: No Beliefs That Will Affect Care: None marital status: Single Current Living Situation: Significant Other current occupational status: employed current occupation: [employer] Other Information That Helps Us Care for You: No Feels Safe at Home: Yes Safety Concerns: Feels Safe At This Time Assistive Devices: None Review of Systems Constitutional: no fever and no chills Respiratory: no cough and no dyspnea Cardiovascular: no chest pain Gastrointestinal: + abdominal pain and + change in bowel habits; no blood in stools Musculoskeletal: no problem reported Integumentary: no rash Psychiatric: no problem reported Endocrine: + problem reported Hematologic / Lymphatic: no unexplained weight loss Physical Exam Constitutional: WD/WN, vitals as above ENMT: NG in place Neck: normal visual inspection Respiratory: normal respiratory effort Gastrointestinal (Abdomen): Inspection/Auscultation: + abdomen distended and normal bowel sounds Percussion/Palpation: + abdomen tender Musculoskeletal: Head/Neck/Chest: normocephalic Skin: + scar Psychiatric: A+Ox3, euthymic affect Results & Data ([facility]) Vital Signs (Past 12 Hours) Vital Signs Temp Pulse Resp BP Pulse Ox 05/17/20 08:10 36.7 C 70 20 97 05/16/20 23:24 36.7 C 93 H 18 148/81 H 97 PG Care Time/CCT Total # of Minutes Spent Total Time Spent with Patient: Total time spent is greater than 50% in coordination of care (as documented) at patient's floor/unit and/or counseling patient: Coding Level of Care Code 53403 Office/OBS Consult Lvl 4 Diagnoses SBO (small bowel obstruction) K56.609 Foreign body in intestine T18.3XXA Encounter type: initial encounter (1) Foreign body in intestine Encounter type: initial encounter Qualified Code(s): T18.3XXA - Foreign body in small intestine, initial encounter
[2020-05-17] MEDS: LAVAGE SOLUTION 4000ML PO SCH ×2 (12:07→12:09)
--- NOTE | 2020-05-17 12:38 | Hospitalist Progress Note ---
Date of Service May 17, 2020 Assessment & Plan (1) SBO (small bowel obstruction): Secondary to foreign object - patient is not sure how it got there, she doesn't remember swallowing anything odd NG tube accidentally removed by patient today - will leave out to see how she tolerates. Continue IV fluids, encourage ambulation Dilaudid for pain relief Ondansetron for ongoing nausea Surgery consulted - continue conservative measures for now GI was consulted concerning need for colonoscopy - foreign object is now in the rectosigmoid colon and will likely pass on its own, if it doesn't a colonoscopy can be done (2) Anxiety disorder: Lorazepam 0.5 mg IV every 4 hourly as needed (3) Transaminitis: Trending down (4) DVT prophylaxis: ambulation, SCDs, heparin subq Admission and Anticipated Discharge Date Admission Date: May 15, 2020 Supervising Physician Co-Signing Physician Notes chart reviewed and case d/w S Maynor GARY. As above Subjective Ms. Downey is feeling a bit better today but still having headache and discomfort from her NG tube. Later this morning she pulled her NG tube out accidentally Review of Systems Constitutional: no fever, no chills and no body aches Respiratory: no cough and no dyspnea Cardiovascular: no chest pain and no palpitations Gastrointestinal: no abdominal pain, no nausea and no vomiting Genitourinary: no dysuria and no urinary hesitancy Musculoskeletal: no back pain and no joint pain Integumentary: no rash Physical Exam Physical Exam: General: no distress Eyes: normal inspection, PERLL Respiratory: chest non tender, clear to auscultation, normal breath sounds, no respiratory distress, no accessory muscle use Cardiac: regular rate and rhythm, no rub or gallop, no murmur, no edema, no jvd GI/: active bowel sounds, no abd pain or tenderness, soft, non distended Extremities: normal range of motion, normal strength, non tender Neuro/Psych: alert and oriented x 3, normal mood and affect Skin: normal color, dry Results & Data Results & Data ([facility]) Vital Signs (Past 12 Hours) Vital Signs Temp Pulse Resp Pulse Ox 05/17/20 08:10 36.7 C 70 20 97 PG Care Time/CCT Total # of Minutes Spent Total Time Spent with Patient: Total time spent is greater than 50% in coordina tion of care (as documented) at patient's floor/unit and/or counseling patient: Coding Level of Care Code 63585 Subseq Hosp Care Lvl 2 Diagnoses SBO (small bowel obstruction) K56.609 Anxiety disorder F41.9 Transaminitis R74.01 DVT prophylaxis Z29.9
--- NOTE | 2020-05-17 14:03 | Surgery Progress Note ---
Date of Service May 17, 2020 Assessment & Plan (1) SBO (small bowel obstruction): pt is a 50 year-old female who presents ER with acute abdominal pain, nausea, vomiting. CT scan showing evidence of metallic foreign body at site of SBO. History of multiple abdominal surgeries including colosectomy with ileostomy and reversal, cholecystectomy, hernia repair with mesh. 05/17/2020: avss, no leukocytosis abdominal pain improved + bm yesterday KUB today showing significant interval decrease in small bowel distention and gas and stool in colon. Metallic foreign body now projects over lower sacrum to right of midline Plan: Will continue conservative measures with NPO, bowel rest, NGT to LIS, pain management as needed. GI consult to consider colonoscopy for foreign body retrieval as patient has had multiple abdominal surgeries including hernia repair with mesh therefore ex lap would be difficult if foreign body does not pass. ambulate hallway to increase GI motility, clamp NGT to ambulate continue medical management repeat am labs since NPO (Cbc, bmp) repeat KUB in am (2) Foreign body in intestine: plan as above Dr. Nair has seen patient, agrees with above. Admission and Anticipated Discharge Date Admission Date: May 15, 2020 Subjective feeling better today, abdominal pain has improved passed some gas and had a bowel movement yesterday still uncomfortable due to NGT ambulating hallway Physical Exam Constitutional: WD/WN, vitals as above Respiratory: normal respiratory effort; no respiratory distress Gastrointestinal (Abdomen): Inspection/Auscultation: + abdomen distended NGT with dark brown output Skin: no rashes, warm and dry Psychiatric: A+Ox3, euthymic affect Results & Data ([facility]) Vital Signs (Past 12 Hours) Vital Signs Temp Pulse Resp Pulse Ox 05/17/20 08:10 36.7 C 70 20 97 Laboratory Results 05/17/20 05/17/20 Range/Units 05:46 05:46 WBC 8.20 (4.8-10.8) K/uL RBC 4.41 (4.2-5.4) M/uL Hgb 13.0 (12.0-16.0) g/dL Hct 41.2 (37-47) % MCV 93.4 (80-100) fL MCH 29.5 (25-34) pg MCHC 31.6 L (32-36) g/dL RDW Std Deviation 45.5 (36.4-46.3) fL RDW Coeff of Silvia 13.3 (11.5-14.5) % Plt Count 269 (130-400) K/uL MPV 9.9 (7.4-10.4) fL Sodium 137 (136-145) mmol/L Potassium 3.6 (3.5-5.1) mmol/L Chloride 102 (98-107) mmol/L Carbon Dioxide 29 (21-32) mmol/L Anion Gap 6.0 (3-11) BUN 13 (7-18) mg/dl Creatinine 0.78 (0.6-1.2) mg/dl Est Cr Clr Drug Dosing 102.2 ml/min Est GFR ( Amer) 102.0 Est GFR (Non-Af Amer) 88.0 BUN/Creatinine Ratio 17.0 (10-20) Glucose 95 (70-99) mg/dl Calcium 9.0 (8.5-10.1) mg/dl Total Bilirubin 0.9 (0.2-1) mg/dl Direct Bilirubin 0.2 (0-0.2) mg/dl AST 43 H (15-37) U/L ALT 133 H (12-78) U/L Alkaline Phosphatase 83 (45-117) U/L Total Protein 7.0 (6.4-8.2) gm/dl Albumin 3.4 (3.4-5.0) gm/dl Diagnostic Findings XR KUB/Abdomen 1 view CLINICAL HISTORY: Eval SBO and Foreign body location COMPARISON STUDY: 05/16/2020 FINDINGS: There is significant decrease in the previously identified small bowel dilatation. There is a residual 36 mm small bowel loop in the central abdomen. There is a coin shaped metallic foreign body projected over the lower sacrum to the right of midline. IMPRESSION: 1. Significant interval decrease in the previously identified small bowel dilatation with a residual 36 mm small bowel loop. 2. Gas within nondistended colon 3. The previously identified coin shaped metallic foreign body now projects over the lower sacrum to the right of midline (1) Foreign body in intestine Encounter type: initial encounter Qualified Code(s): T18.3XXA - Foreign body in small intestine, initial encounter
[2020-05-17] MEDS: ONDANSETRON INJ 2 MG/ML 2 ML VIAL IV PRN ×2 (14:28→19:57)
[2020-05-18] MEDS: LACTATED RINGER'S 1,000 ML IV SCH ×3 (02:20→18:11)
[2020-05-18 07:06] LABS: Hematocrit (blood only) 37.6 % (37-47); Hemoglobin 12.1 g/dL (12.0-16.0); Mean Corpuscular Hemoglobin 29.7 pg (25-34); Mean Corpuscular Hgb Conc 32.2 g/dL (32-36); Mean Corpuscular Volume 92.2 fL (80-100); Mean Platelet Volume 9.8 fL (7.4-10.4); Platelet Count 232 K/uL (130-400); RDW Coefficient of Variation 13.1 % (11.5-14.5); RDW Standard Deviation 44.4 fL (36.4-46.3); Red Blood Count 4.08 M/uL (4.2-5.4); White Blood Count 5.52 K/uL (4.8-10.8)
[2020-05-18] MEDS: FLUTICASONE PROPIONATE NA SPR 16 GM BTL SCH ×2 (07:25→20:29)
[2020-05-18 07:39] LABS: Albumin Level 3.2 gm/dl (3.4-5.0); BUN Creatinine Ratio 13.3 (10-20); Calcium 9.2 mg/dl (8.5-10.1); Creatinine Clr Calc Pharmacy 115.5 ml/min; Est GFR (African American) 116.8; Est GFR (Non-African American) 100.8; Potassium 3.7 mmol/L (3.5-5.1)
[2020-05-18 07:41] LABS: Albumin Globulin Ratio 0.9 (0.9-2); Bilirubin,Total 0.7 mg/dl (0.2-1); Globulin 3.4 gm/dl (2.5-4.0); Total Protein 6.6 gm/dl (6.4-8.2)
--- NOTE | 2020-05-18 09:10 | XRay Report ---
KUB HISTORY: Follow up study in a patient with foreign body of the colon eval for foreign body COMPARISON: KUB 05/17/2020 FINDINGS: Air-filled loops of large and small bowel are noted. There are a few loops of mildly dilate d small bowel within the central abdomen measuring up to 3.2 cm which appears mildly improved from co mparison. Cholecystectomy. There is a round metallic density foreign body again noted projecting over the mid pelvis measuring 2.6 cm transversely. No renal calculi. No ureteral calculi. No pneumoperit oneum or pneumatosis. No fracture. IMPRESSION: 1. Air-filled loops of large and small bowel with mildly decreased distention of central abdominal sm all bowel loops. 2. No pneumoperitoneum. 3. Metallic density 2.6 cm foreign body of the central pelvis redemonstrated. ACT 112: Negative or not required by law. The above report was generated using voice recognition software. It may contain grammatical, syntax o r spelling errors. Electronically signed by: Cornell Garg M.D. 05/18/2020 9:09 AM
--- NOTE | 2020-05-18 09:11 | Gastroenterology Progress Note ---
Date of Service May 18, 2020 Assessment & Plan (1) Foreign body in intestine: -Finish Golytely -2 Fleet enemas -Xray in AM Admission and Anticipated Discharge Date Admission Date: May 15, 2020 Supervising Physician Co-Signing Physician Notes I personally evaluated the patient and agree with the findings as documented by Khushi Sanchez, JASON Exam: abd: soft, nt, mild abdominal tenderness Subjective Patient is a 50 yo female with a resolving small bowel obstruction and foreign body in the colon. The patient drank approximately 50% of her Golytely prep. An xray shows the metallic density over the midpelvis and air-filled loops of large and small bowel with mildly decreased distention of central abdominal small bowel loops. Patient did have a bowel movement yesterday. She reports abdominal discomfort (generalized). Review of Systems Constitutional: no fever and no chills Respiratory: no cough and no dyspnea Cardiovascular: no chest pain Gastrointestinal: + abdominal pain Physical Exam Constitutional: well developed Respiratory: normal respiratory effort Cardiovascular: Extremities: no edema Gastrointestinal (Abdomen): Inspection/Auscultation: + abdomen distended Percussion/Palpation: + abdomen tender and abdomen soft Musculoskeletal: Head/Neck/Chest: normocephalic Psychiatric: Orientation: alert and oriented x 3 Affect: + tearful affect Results & Data Results & Data ([facility]) Vital Signs (Past 12 Hours) Vital Signs Temp Pulse Resp BP Pulse Ox 05/18/20 07:20 36.6 C 64 16 150/89 H 98 05/17/20 23:22 36.7 C 68 16 138/83 95 PG Care Time/CCT Total # of Minutes Spent Total Time Spent with Patient: Total time spent is greater than 50% in coordination of care (as documented) at patient's floor/unit and/or counseling patient: Coding Level of Care Code 53673 Subseq Hosp Care Lvl 3 Diagnoses Foreign body in intestine T18.3XXA Encounter type: initial encounter (1) Foreign body in intestine Encounter type: initial encounter Qualified Code(s): T18.3XXA - Foreign body in small intestine, initial encounter
[2020-05-18] MEDS ORDERED: SOD PHOSPHATE/SOD BIPHOSPHATE ENEMA 132 ML BTL PR STA (09:38)
--- NOTE | 2020-05-18 09:52 | Surgery Progress Note ---
Date of Service May 18, 2020 Assessment & Plan (1) SBO (small bowel obstruction): pt is a 50 year-old female who presents ER with acute abdominal pain, nausea, vomiting. CT scan showed evidence of metallic foreign body at site of SBO. History of multiple abdominal surgeries including colectomy with ileostomy and reversal, cholecystectomy, hernia repair with mesh. 05/18/2020: - + bowel movements, NGT removed - KUB showing air-filled loops of large and small bowel with decreased d istention of small bowel loops. Foreign body in central pelvis. Plan: Discussed with patient would prefer to avoid surgery given her multiple abdominal surgeries and risk of prolonged surgery from possible adhesions as well as risk of possible colostomy, fistula formation, hernia, with any surgical intervention. GI saw patient this morning and wants her to continue bowel prep to see if foreign body passes itself. Continue medical management Dr. Nair discussed with patient if foreign body persists and GI does not want to perform colonoscopy here could consider transfer to another facility. [facility] general surgery covering over the weekend. (2) Foreign body in intestine: plan as above Dr. Nair has seen patient, agrees with above. Admission and Anticipated Discharge Date Admission Date: May 15, 2020 Subjective patient very tearful and upset upon entering room states she is just very "hangry" and is emotional as she cannot have any family or visitors. Still having some abdominal pain generalized but improved compared to previous some nausea with the bowel prep had bowel movements yesterday with prep states GI wants her to finish the Golytely prep to see if she passes foreign object without colonoscopy Physical Exam Constitutional: WD/WN, vitals as above Respiratory: normal respiratory effort Gastrointestinal (Abdomen): Inspection/Auscultation: abdomen normal to inspection and + abdominal surgical scar (multiple surgical scars present) Percussion/Palpation: + abdomen tender (mild, no guarding, rigidity, peritonitis) and abdomen soft Skin: no rashes, warm and dry Psychiatric: Orientation: alert and oriented x 3 Affect: + tearful affect Results & Data ([facility]) Vital Signs (Past 12 Hours) Vital Signs Temp Pulse Resp BP Pulse Ox 05/18/20 07:20 36.6 C 64 16 150/89 H 98 05/17/20 23:22 36.7 C 68 16 138/83 95 Laboratory Results 05/18/20 05/18/20 Range/Units 05:57 05:57 WBC 5.52 (4.8-10.8) K/uL RBC 4.08 L (4.2-5.4) M/uL Hgb 12.1 (12.0-16.0) g/dL Hct 37.6 (37-47) % MCV 92.2 (80-100) fL MCH 29.7 (25-34) pg MCHC 32.2 (32-36) g/dL RDW Std Deviation 44.4 (36.4-46.3) fL RDW Coeff of Silvia 13.1 (11.5-14.5) % Plt Count 232 (130-400) K/uL MPV 9.8 (7.4-10.4) fL Sodium 138 (136-145) mmol/L Potassium 3.7 (3.5-5.1) mmol/L Chloride 104 (98-107) mmol/L Carbon Dioxide 27 (21-32) mmol/L Anion Gap 7.0 (3-11) BUN 9 (7-18) mg/dl Creatinine 0.69 (0.6-1.2) mg/dl Est Cr Clr Drug Dosing 115.5 ml/min Est GFR ( Amer) 116.8 Est GFR (Non-Af Amer) 100.8 BUN/Creatinine Ratio 13.3 (10-20) Glucose 88 (70-99) mg/dl Calcium 9.2 (8.5-10.1) mg/dl Total Bilirubin 0.7 (0.2-1) mg/dl AST 55 H (15-37) U/L ALT 127 H (12-78) U/L Alkaline Phosphatase 81 (45-117) U/L Total Protein 6.6 (6.4-8.2) gm/dl Albumin 3.2 L (3.4-5.0) gm/dl Globulin 3.4 (2.5-4.0) gm/dl Albumin/Globulin Ratio 0.9 (0.9-2) Diagnostic Findings KUB HISTORY: Follow up study in a patient with foreign body of the colon eval for foreign body COMPARISON: KUB 05/17/2020 FINDINGS: Air-filled loops of large and small bowel are noted. There are a few loops of mildly dilated small bowel within the central abdomen measuring up to 3.2 cm which appears mildly improved from comparison. Cholecystectomy. There is a round metallic density foreign body again noted projecting over the mid pelvis measuring 2.6 cm transversely. No renal calculi. No ureteral calculi. No pn eumoperitoneum or pneumatosis. No fracture. IMPRESSION: 1. Air-filled loops of large and small bowel with mildly decreased distention of central abdominal small bowel loops. 2. No pneumoperitoneum. 3. Metallic density 2.6 cm foreign body of the central pelvis redemonstrated. (1) Foreign body in intestine Encounter type: initial encounter Qualified Code(s): T18.3XXA - Foreign body in small intestine, initial encounter
[2020-05-18] MEDS: LORazepam 0.5 MG/1 ML VIAL IV PRN ×2 (11:10→22:30)
[2020-05-18] MEDS: KETOROLAC TROMETHAMINE 15 MG/ML VIAL IV PRN ×2 (11:15→17:16)
--- NOTE | 2020-05-18 14:19 | Hospitalist Progress Note ---
Date of Service May 18, 2020 Assessment & Plan (1) SBO (small bowel obstruction): Secondary to foreign object - patient is not sure how it got there, she doesn't remember swallowing anything odd NG tube discontinued, tolerating drinking Go-Lytely Continue IV fluids, encourage ambulation Dilaudid for pain relief Ondansetron for ongoing nausea Surgery consulted - continue conservative measures for now GI was consulted concerning need for colonoscopy - foreign object is now in the rectosigmoid colon and will likely pass on its own, if it doesn't a colonoscopy can be done. GI recommended enemas to be administered Recheck KUB am (2) Anxiety disorder: Lorazepam 0.5 mg IV every 4 hourly as needed (3) Transaminitis: Trending down (4) DVT prophylaxis: ambulation, SCDs, heparin subq (5) Hepatic steatosis: Seen on CT Nutrition and lifestyle counseling Follow up with pcp (6) Dyslipidemia: Looks like last lipid panel owas in February 2019 demonstrating triglycerides 400, total cholesterol 279 and HDL 44 - does not appear to be on any treatment for this. Recommend patient follow up with pcp Admission and Anticipated Discharge Date Admission Date: May 15, 2020 Supervising Physician Co-Signing Physician Notes Chart reviewed and case d/w S Maynor GARY. as above Subjective Ms. Downey is tearful and frustrated with her continued stay. Her abdominal pain has improved, no nausea or vomiting Review of Systems Constitutional: no fever, no chills and no body aches Respiratory: no cough and no dyspnea Cardiovascular: no chest pain and no palpitations Gastrointestinal: no abdominal pain, no nausea and no vomiting Genitourinary: no dysuria and no urinary hesitancy Musculoskeletal: no back pain and no joint pain Integumentary: no rash Physical Exam Physical Exam: General: no distress Eyes: normal inspection, PERLL Respiratory: chest non tender, clear to auscultation, normal breath sounds, no respiratory distress, no accessory muscle use Cardiac: regular rate and rhythm, no rub or gallop, no murmur, no edema, no jvd GI/: active bowel sounds, no abd pain or tenderness, soft, non distended Extremities: normal range of motion, normal strength, non tender Neuro/Psych: alert and oriented x 3, anxious, tearful Skin: normal color, dry Results & Data Results & Data ([facility]) Vital Signs (Past 12 Hours) Vital Signs Temp Pulse Resp BP Pulse Ox 05/18/20 07:20 36.6 C 64 16 150/89 H 98 PG Care Time/CCT Total # of Minutes Spent Total Time Spent with Patient: Total time spent is greater than 50% in coordination of care (as documented) at patient's floor/unit and/or counseling patient: Coding Level of Care Code 01357 Subseq Hosp Care Lvl 3 Diagnoses SBO (small bowel obstruction) K56.609 Anxiety disorder F41.9 Transaminitis R74.01 DVT prophylaxis Z29.9 Hepatic steatosis K76.0 Dyslipidemia E78.5
[2020-05-18] MEDS ORDERED: ACETAMINOPHEN 1,000 MG/100 ML VIAL IV STA (20:19)
[2020-05-18] MEDS: ONDANSETRON INJ 2 MG/ML 2 ML VIAL IV PRN (20:30)
[2020-05-19] MEDS: LACTATED RINGER'S 1,000 ML IV SCH ×3 (01:50→15:23)
[2020-05-19 07:55] LABS: Hematocrit (blood only) 40.1 % (37-47); Hemoglobin 13.3 g/dL (12.0-16.0); Mean Corpuscular Hgb Conc 33.2 g/dL (32-36); Mean Corpuscular Volume 90.5 fL (80-100); Mean Platelet Volume 9.8 fL (7.4-10.4); Platelet Count 318 K/uL (130-400); RDW Coefficient of Variation 12.7 % (11.5-14.5); RDW Standard Deviation 42.1 fL (36.4-46.3); Red Blood Count 4.43 M/uL (4.2-5.4); White Blood Count 6.61 K/uL (4.8-10.8)
[2020-05-19] MEDS: FLUTICASONE PROPIONATE NA SPR 16 GM BTL SCH (08:19)
[2020-05-19 08:29] LABS: Albumin Level 3.7 gm/dl (3.4-5.0); BUN Creatinine Ratio 12.9 (10-20); Calcium 9.5 mg/dl (8.5-10.1); Creatinine Clr Calc Pharmacy 110.7 ml/min; Est GFR (African American) 112.4; Potassium 3.5 mmol/L (3.5-5.1)
[2020-05-19 08:32] LABS: Bilirubin,Total 0.7 mg/dl (0.2-1); Globulin 3.8 gm/dl (2.5-4.0); Total Protein 7.5 gm/dl (6.4-8.2)
--- NOTE | 2020-05-19 09:05 | XRay Report ---
KUB HISTORY: Follow up study in a patient with foreign body ingestion foreign object COMPARISON: KUB 05/18/2020 FINDINGS: Cholecystectomy. Nonobstructive bowel gas pattern. No pneumatosis or pneumoperitoneum. No u rolith or acute fracture. 2.6 cm round metallic density foreign body projects over the right hemipelv is. IMPRESSION: 1. Nonobstructive bowel gas pattern without pneumoperitoneum. 2. 2.6 cm round metallic density foreign body projects over the abdominal right lower quadrant. ACT 112: Negative or not required by law. The above report was generated using voice recognition software. It may contain grammatical, syntax o r spelling errors. Electronically signed by: Cornell Garg M.D. 05/19/2020 9:03 AM
--- NOTE | 2020-05-19 09:18 | Surgery Progress Note ---
Date of Service May 19, 2020 Assessment & Plan (1) SBO (small bowel obstruction): metallic FB does not seem to be following a travel pattern, will discuss with rads and GI, consider repeat CT Admission and Anticipated Discharge Date Admission Date: May 15, 2020 Supervising Physician Co-Signing Physician Notes Patient seen and examined, labs and image reviewed, agree with above. 50-year-old female well-known to me from prior hernia repairs. She has multiple abdominal surgeries including colectomy with colostomy takedown and ileostomy with ileostomy takedown as well as the hernia repairs mentioned above. At some point she apparently swallowed a foreign body which she does not recall. She was admitted for small bowel obstruction associated with a foreign body that may have been present at the ileostomy takedown anastomosis. On previous imaging it appeared that the foreign object was in the colon, however on today's x-ray it appears that it may still be in the right lower quadrant. She has been taking Colyte prep and has been having multiple loose bowel movements and is feeling much better than she did when she first came in. She is frustrated however because she has been here for several days. On exam she is afebrile with stable vitals. Her abdomen is soft, nondistended, nontender. Review of the KUB from today suggests the foreign body may be in the small bowel, possibly at the TI. We will repeat CT scan, if still in small bowel may request GI to try colonoscopy or may need transfer. Surgery will follow. Subjective few liquid BMs, NPO other than prep, no nausea Physical Exam Gastrointestinal (Abdomen): Inspection/Auscultation: abdomen not distended Percussion/Palpation: abdomen soft; abdomen nontender Results & Data ([facility]) Vital Signs (Past 12 Hours) Vital Signs Temp Pulse Resp BP Pulse Ox 05/19/20 08:10 36.9 C 74 20 145/92 H 98 05/18/20 23:59 36.6 C 65 14 157/79 H 93 PG Care Time/CCT Total # of Minutes Spent Total Time Spent with Patient: Total time spent is greater than 50% in coordination of care (as documented) at patient's floor/unit and/or counseling patient: Coding Level of Care Code 07100 Inpt Consult Level 1 Diagnoses SBO (small bowel obstruction) K56.609
[2020-05-19] MEDS ORDERED: IOVERSOL 100ml IV ONE (11:37)
--- NOTE | 2020-05-19 13:04 | CT Scan Report ---
ABDOMEN AND PELVIS CT WITH IV CONTRAST CT DOSE: 880.09 mGy.cm HISTORY: Follow up study in a patient with foreign body and recent small bowel obstruction SBO, fore ign body TECHNIQUE: Multiaxial CT images of the abdomen and pelvis were performed following the IV administrat ion of 94 cc of Optiray 320, A dose lowering technique was utilized adhering to the principles of AL ZAIN. COMPARISON STUDY: CT abdomen pelvis 05/15/2020, KUB 05/19/2020 FINDINGS: Clear lung bases. No pneumatosis or pneumoperitoneum. The imaged inferior cardiac chambers are unremarkable. Hepatic steatosis. Unremarkable spleen, pancreas and adrenal glands. Cholecystectom y. Patency of the hepatic and portal veins. Unremarkable kidneys. There is no hydronephrosis. Decompr essed urinary bladder. No aortic aneurysm. There is no adenopathy. No bowel obstruction. Postoperative changes of the rectosigmoid junction with anastomosis. Additional small bowel anastomosis is noted within the left paracentral pelvis. Mild colonic diverticulosis. Re solution of the previously described high-grade small bowel obstruction. Appendectomy. Interval dista l migration of the coin shaped metallic density foreign body, now within the dependent cecum. Postope rative changes of the ventral abdominal wall. Bilateral saline breast implants partially imaged. Ther e is no acute fracture. IMPRESSION: 1. Interval migration of the coin shaped metallic density 2.6 cm foreign body now within the dependen t cecum. 2. Resolution of the small bowel obstruction without pneumoperitoneum. 3. Prior cholecystectomy, hysterectomy and appendectomy with postoperative changes of the large and s mall bowel redemonstrated. 4. Hepatic steatosis. ACT 112: Negative or not required by law. The above report was generated using voice recognition software. It may contain grammatical, syntax o r spelling errors. Electronically signed by: Cornell Garg M.D. 05/19/2020 1:03 PM
--- NOTE | 2020-05-19 16:00 | Discharge Summary ---
Date of Service May 19, 2020 Admission HPI Per Admitting Provider Annalisa Downey is a 50 year old female who presents to the ER with acute onset abdominal pain, distension and nausea starting this morning. She has a significant history of diverticulitis with diverting colostomy and subsequent reversal, hysterectomy, appendectomy, cholecystectomy and small bowel obstruction secondary to lesions. Abdominal pain is generalized severity 5/10 currently, 10/10 on arrival to the ER. Due to her history of diverticulitis she did take a dose of ciprofloxacin or metronidazole this morning. In the ER CT abdomen pelvis with IV contrast was concerning for small bowel obstruction secondary to a foreign body the size of a quarter. The patient does not remember swallowing anything and has been cooking her own meals. She does allude to eating quickly however. Principal Diagnosis SBO, foreign object in bowel Discharge Exam Constitutional WD/WN, vitals as above Respiratory normal respiratory effort, lungs clear to auscultation Cardiovascular RRR, no murmur, no edema Gastrointestinal (Abdomen) normal bowel sounds, soft, nontender, no hepatosplenomegaly Musculoskeletal no cyanosis or clubbing, extremities motor strength 5/5 Skin no rashes, warm and dry Neurologic moves all extremities and awake Psychiatric A+Ox3, euthymic affect Discharge Data Allergies Allergy/AdvReac Type Severity Reaction Status Date / Time adhesive Allergy Mild skin rash, Verified 05/15/20 11:03 and sore Consultations 05/15/20 11:39 Consult General Surgery Stat ED Decision to Admit Stat 05/17/20 10:35 Consult Gastroenterology Routine Ordered Studies 05/15/20 10:08 CT abd pelvis IV con only Stat 05/19/20 10:38 CT abd pelvis IV con only Routine Hospital Course (1) SBO (small bowel obstruction): Secondary to foreign object - thinking back patient thinks maybe she accidentally swallowed a quarter with her supplements. She apparently takes a few large supplements and they were in the same pocket as some change. Given GoLytely prep and enemas but foreign object continues to be in intestines - repeat CT shows it to be in the dependent cecum. Discussed with surgery and GI and both feel that she can return home if tolerating po and have repeat KUB in a few days to assess for object passage. Given IVF, pain relief (2) Anxiety disorder: Lorazepam 0.5 mg IV every 4 hourly as needed (3) Transaminitis: Trended down and then stabilized and 150 PCP may want to repeat in a week or two (4) DVT prophylaxis: ambulation, SCDs, heparin subq (5) Hepatic steatosis: Seen on CT Nutrition and lifestyle counseling Follow up with pcp (6) Dyslipidemia: Looks like last lipid panel owas in February 2019 demonstrating triglycerides 400, total cholesterol 279 and HDL 44 - does not appear to be on any treatment for this. Recommend patient follow up with pcp Total Time Total Time Spent Total Time Spent (In Minutes): greater than 30 minutes Discharge Plan Discharge Items Patient Disposition: Home - Self-Care Reason For Visit: SMALL BOWEL OBSTRUCTION Discharge Diagnosis: Small bowel obstruction Activity: Resume your previous activity Activity Comment: gradually as tolerated Non-emergency contact: Primary Care Provider Call non-emergency contact if: you have any medication questions and your symptoms worsen Follow-up/Referrals: Milton Arguelles III, CRNP [Primary Care Provider] - (follow up one week ) Calvin Smith MD [Physician] - (follow up next week ) Diet: Low Fiber Ambulatory Orders: XR KUB/Abdomen 1 view (Routine) Timeframe: 3 Days Location: Determined by Patient Ordered By: Edna Smith Attending Provider Instructions: (1) SBO (small bowel obstruction): Secondary to foreign object You should continue with a low fiber diet until the object has passed out of your body. You will need to have a repeat Xray of your abdomen in 3 days and follow up with gastroenterology (2) Transaminitis: Your liver function test was mildly abnormal. Your primary care provider may want to repeat these levels (3) Hepatic steatosis: See attached information and follow with your primary care provider Stand-Alone Forms: My [facility] RawFlow, Smoking Cessation Medications and DC Order Prescriptions: Continued alprazolam 0.5 mg tablet See Rx Instructions PO DAILY PRN (Reason: Anxiety) Qty: 90 RF: 1 ondansetron HCl 4 mg tablet 4 mg PO Q6H Qty: 30 RF: 1 [id number]-caff [id number] mg capsule 1 - 2 cap PO .COMPLEX PRN (Reason: headache) Qty: 30 RF: 2 Saccharomyces boulardii 250 mg capsule 250 mg PO QAM RF: 0 multivitamin tablet 1 tab PO QAM RF: 0 loratadine [Claritin] 10 mg tablet 10 mg PO QAM RF: 0 doxycycline hyclate 50 mg capsule 50 mg PO HS RF: 0 escitalopram oxalate 5 mg tablet 5 mg PO QAM RF: 0 biotin 1 mg Capsule 1 mg PO QAM RF: 0 Discontinued ciprofloxacin HCl 500 mg tablet 500 mg PO Q12H Qty: 20 RF: 0 Discharge Orders: Discharge Order (Routine); Ordered 05/19/20 Ordered By: Edna Taveras/Other Patient Handouts: Nonalcoholic Fatty Liver Disease NAFLD Admission Data Admit Date/Time: 05/15/20 12:20 Attending Provider: Samir Castaneda Admit Provider: Uday Arambula Primary Care Provider: Milton Arguelles III Other Providers: Felipe Nair ; Uday Arambula ; Fidel Herbert ; Calvin Smith Other Interventions: Discharge Summary Assessment (RN) Last Done: 05/19/20 16:09 Supervising Physician Co-Signing Physician Notes I personally examined the patient and verified all sofia points of history and exam, discussed case, and agree with decision making with Lester GARY feeling better and feels up to going home. notes that before admission she did have a morning she was rushing around, put vitamins ("they're horse pills") in her pocket. got a drink from the machine that was $1.75, thinks she probably put the quarter in her pocket with her vitamins and then unwittingly/accidentally swallowed it when she took her vitamins and didn't notice vitals noted nad heent nc at mmm breathing unlabored no accessory muscles good effort skin no rashes no pallor or icterus SBO - improved. (probable) quarter now in colon so should pass easily. to return if sx worsen. otherwise as above, stable for home Coding Level of Care Code D/C Day Management >30 mins Diagnoses SBO (small bowel obstruction) K56.609 Anxiety disorder F41.9 Transaminitis R74.01 DVT prophylaxis Z29.9 Hepatic steatosis K76.0 Dyslipidemia E78.5
== END 2020-05-19 18:43 | disposition home or self-care (01) | DRG 390 ==
LOC: ED 09:51 → SUATTDRO 12:20 → 3N 12:20

== ENCOUNTER 2021-07-06 04:39 | Inpatient (IN) ==
[2021-07-06] MEDS ORDERED: ONDANSETRON INJ 2 MG/ML 2 ML VIAL IV STA (05:00)
[2021-07-06] MEDS ORDERED: SODIUM CHLORIDE 0.9% 1000ML 1,000 ML IV ONE (05:00)
[2021-07-06] MEDS ORDERED: HYDROmorphone INJ 1 MG/ML SYRINGE IV STA (05:00)
--- NOTE | 2021-07-06 05:11 | Emergency Department Note ---
Impression & Plan SBO (small bowel obstruction) The patient will be admitted by the [facility] service ED Provider Note NAME: TYRON SEPULVEDA AGE: 51 SEX: F ARRIVES VIA: Walk-In INFORMANT: Patient ED PROVIDER(S): Jo-Ann Meza DO CHIEF COMPLAINT: Abdominal pain PLAN: Disposition: Admitted by the [facility] service Condition: Stable MEDICAL DECISION MAKING: This is a 51-year-old female patient who presents to the emergency department with severe diffuse abdominal pain for the past 21 hours. Patient has a history of multiple previous abdominal surgeries and previous bowel obstructions. The patient has significant relief of her pain with IV Dilaudid. The patient went for CT scan of the abdomen/pelvis which showed evidence of a small bowel obstru ction. She was kept n.p.o. and was receiving IV normal saline and additional doses of IV Dilaudid. I discussed the case with the [facility] and they will evaluate for further management. Triage Nursing notes reviewed and agree with them. Additional history obtained from her who is at the bedside Prior medical records reviewed Vital Signs: reviewed and remarkable for tachycardia Differential diagnosis: Small bowel obstruction; gastritis; colitis ER treatment provided: Normal saline bolus IV Zofran IV Dilaudid x2 Diagnostics interpreted by me: Cardiac Monitoring: Sinus tachycardia at 105. Laboratory studies: See below Imaging studies: As per stat rad CT ABDOMEN & PELVIS With Contrast: Limited evaluation the absence of contrast. Small bowel obstruction with suspected transition point in the right lower quadrant just distal to the small bowel anastomosis (series 2 image 78). Associated with this is upstream small bowel dilatation measuring up to 3.9 cm. Mild mesenteric ascites also noted which may be reactive in nature. No evidence of pneumatosis or free air. Sigmoidectomy changes. Colonic diverticulosis. Cholecystectomy changes. Appendectomy changes. No other acute findings HPI: 51/F arrives for evaluation of abdominal pain. Patient developed diffuse abdominal pain around 8:30 AM yesterday morning. She has a history of small bowel obstructions. She has had multiple previous surgeries for diverticulitis including a colostomy and reversal of the colostomy. Patient became more concerned when she vomited approximately 1 hour ago. The pain is now severe. ROS: See above HPI for pertinent positives & negatives. A total of 10 systems reviewed and were otherwise negative. PAST MEDICAL HISTORY:See Below PAST SURGICAL HISTORY:See Below FAMILY HISTORY:See Below SOCIAL HISTORY:See Below HOME MEDICATIONS:See list ALLERGIES:See list VITALS:See Below PHYSICAL EXAMINATION: HEENT: Head - normocephalic and atraumatic Pupils are equal, round, and reactive to light. Extraocular eye muscles are intact, and sclera are anic teric. Nose - moist nasal mucosa without discharge. Mouth - moist buccal mucosa. Oropharynx is nonerythematous and there is no tonsillar exudate or edema noted. Neck: Supple; no cervical lymphadenopathy or nuchal rigidity Heart: Regular rate and rhythm. There is a normal S1 and S2 with no murmurs, clicks, or gallops appreciated. Lungs: Clear to auscultation bilaterally with no wheezes, rales, or rhonchi. Abdomen: Soft, diffusely tender with palpation, moderately distended, with absent sounds. There are no palpable pulsatile masses or hepatosplenomegaly. There is no guarding, rigidity, or rebound noted. Extremities: No evidence of cyanosis, clubbing, or edema. There are easily palpable peripheral pulses. Skin: warm and dry with good turgor and no rashes. ED COURSE: Times/Reassessments: 0450: The patient was evaluated in room A2. An IV lock was initiated and labs were drawn as above. The patient was given a milligram of IV Dilaudid and 4 mg of IV Zofran. She was bolused with a liter of normal saline solution. An order was placed for continuous cardiac monitoring. The patient was in a sinus tachycardia at 105. The patient went for CT scan of the abdomen/pelvis. On returning from radiology, the patient was quite comfortable on my repeat exam I gave the patient results of laboratory studies and CT scan which show evidence of small bowel obstruction. The patient states that her pain is returning. She was given an additional dose of IV Dilaudid. I discussed the case with the [facility] hospitalist and they will evaluate for further management. Jo-Ann Meza, DO Past Med/Surg History Medical History Acne Anxiety Anxiety disorder Doing well on as needed Xanax. No medication changes at this time. Will re- evaluate this fall. PAT CALL MAR 28 2021 - DOSAGE HAS BEEN INCREASED, UPDATED WITH MEDICATION REVIEW. Diverticulitis RECENT FLARE UP/RESOLVING DVT (deep venous thrombosis) 1993 BILAT BEHIND KNEES (FROM CONTROL) Endometriosis HX High cholesterol ? History of COVID-29 Mar 2020 History of migraine headaches Lupus anticoagulant disorder Ovarian cyst HX Rosacea SBO (small bowel obstruction) 2017 & 2020 (SWALLOWED A QUARTER ACCIDENTALLY; LIQUID DIET/NGT, PASSED ON OWN ) Temporomandibular joint disorder HX LOCKING, BRACE HS Transaminitis PT DENIES LIVER PROBLEMS Surgical History History of appendectomy History of breast augmentation History of bunionectomy RT History of carpal tunnel release right wrist with ganglion cyst removal History of colonoscopy History of esophagogastroduodenoscopy (EGD) History of hysterectomy Laparoscopic PARTIAL History of nasal septoplasty History of tooth extraction History of ventral hernia repair Hx of LASIK bilateral S/P cholecystectomy 05/2016 - THIS SURGERY WAS AT THE SAME TIME A HERNIA SURGERY S/P colon resection 2013 BOWEL RESECTION AND Bowel resection due to recurrent diverticulitis with ileostomy placement 05/2016 and subsequent reversal S/P hernia repair Hernia surgery x 2 02/2017, 04/2017 - complicated by seroma formation requiring a wound vac Status post epigastric hernia repair, follow-up exam HX HERNIA UNDERNEATH STERNUM REPAIRED Family History Grandfather (Paternal) Family history of diabetes mellitus Mother Family history of esophageal cancer POSSIBLY Grandfather (Maternal) Hypertension Grandmother (Maternal) Allergies Other Abdominal wall hernia Acute diverticulitis Acute postoperative abdominal pain Closed head injury Constipation Contusion of left hip Contusion of right shoulder Contusion of soft tissue Encounter for removal of nasal packing Epistaxis Fall Gallstones Nausea No family history of adverse response to anesthesia No family history of bleeding disorder Postoperative abdominal pain Right ovarian cyst Sigmoid diverticulitis Small bowel obstruction Denies family history of Ovarian cancer Prostate cancer Myocardial infarction Breast cancer Colorectal cancer Social History Smoking Status: Never smoker Tobacco Type: Cigarettes Cigarettes Per Day: OCCACIONAL CIGARETTES - ADVISED NPO; Second Hand Exposure: Yes (AT WORK); Hx Alcohol Use: Yes Alcohol type: wine Alcohol Intake Frequency: 2-4 x/Month Hx Substance Use: No Preferred Language: Bermudian Communication Ability: Effective Visual Impairment: No Limitations Hearing Ability: Normal 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 Beliefs That Will Affect Care: None marital status: Current Living Situation: Significant Other current occupational status: employed 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[employer] Feels Safe at Home: Yes Assistive Devices: Contacts and Glasses Allergies Allergies Allergy/AdvReac Type Severity Reaction Status Date / Time adhesive AdvReac Unknown skin rash, Verified 05/14/21 06:26 and sore Home Meds Home Medications Medication Instructions Recorded Confirmed multivitamin 1 tab PO QAM 10/28/18 05/14/21 evening primrose oil 500 mg capsule 500 mg PO DAILY cap 12/24/20 05/14/21 omega-3 fatty acids 1,000 mg 1,000 mg PO DAILY 12/24/20 05/14/21 capsule (Fish Oil Concentrate) loratadine 10 mg tablet (Claritin) 10 mg PO DAILY 03/08/21 05/14/21 biotin 1 mg capsule 1 mg PO DAILY 03/28/21 05/14/21 [id number]-jwoxelxcgm-IQE-caffeine 30 1 - 2 cap PO UD PRN 03/28/21 03/28/21 mg-50 mg-325 mg-40 mg capsule (Butalbital Compound with Codeine) diphenhydramine HCl 25 mg capsule 25 mg PO HS 03/28/21 03/28/21 (Benadryl) escitalopram oxalate 10 mg tablet 10 mg PO QAM 03/28/21 05/14/21 Previous Rx's Medication Instructions Recorded doxycycline hyclate 50 mg capsule 50 mg PO HS #90 cap 01/23/21 alprazolam 0.5 mg tablet 1 - 2 mg PO UD PRN #90 tab 04/17/21 tramadol 50 mg tablet 50 mg PO Q6H PRN #12 tab 05/14/21 Results & Data (ED) Vital Signs Vital Signs - 24 hr 07/06/21 04:48 07/06/21 05:51 07/06/21 06:11 Temperature 36.1 C L Temperature Source Temporal Artery Scan Pulse Rate 105 H Pulse Rate [Apical] 70 Respiratory Rate 18 15 Respiratory Effort / Characteristics Respiratory Depth Normal Blood Pressure 126/82 Blood Pressure [Right Arm] 135/85 Blood Pressure Mean 96 Blood Pressure Mean [Right Arm] 101 Pulse Oximetry 98 98 96 Oxygen Delivery Method Room Air Room Air Room Air Sepsis Recent Fever Within 48 Hours No Sepsis New/Unexplained Change in Mental Status N/A Sepsis Action Taken by Nursing No Action Required 07/06/21 06:55 Temperature Temperature Source Pulse Rate Pulse Rate [Apical] 68 Respiratory Rate 16 Respiratory Effort / Characteristics Non-Labored Respiratory Depth Normal Blood Pressure Blood Pressure [Right Arm] 121/78 Blood Pressure Mean Blood Pressure Mean [Right Arm] 92 Pulse Oximetry 96 Oxygen Delivery Method Room Air Sepsis Recent Fever Within 48 Hours Sepsis New/Unexplained Change in Mental Status Sepsis Action Taken by Nursing Laboratory Data Result diagrams: 07/06/21 05:15 07/06/21 05:15 Lab Results 07/06/21 07/06/21 07/06/21 Range/Units 05:15 05:15 05:21 WBC 15.39 H (4.8-10.8) K/uL RBC 5.60 H (4.2-5.4) M/uL Hgb 16.4 H (12.0-16.0) g/dL POC Hgb 16.7 H (12.0-16.0) g/dl Hct 50.4 H (37-47) % POC Hct 49 H (37-47) % MCV 90.0 (80-100) fL MCH 29.3 (25-34) pg MCHC 32.5 (32-36) g/dL RDW Std Deviation 43.8 (36.4-46.3) fL RDW Coeff of Silvia 13.4 (11.5-14.5) % Plt Count 343 (130-400) K/uL MPV 10.1 (7.4-10.4) fL Immature Gran % (Auto) 0.3 % Neut % (Auto) 75.0 % Lymph % (Auto) 17.9 % Butts % (Auto) 5.4 % Eos % (Auto) 0.9 % Baso % (Auto) 0.5 % Neut # (Auto) 11.55 H (1.4-6.5) K/uL Lymph # (Auto) 2.76 (1.2-3.4) K/uL Butts # (Auto) 0.83 H (0.11-0.59) K/uL Eos # (Auto) 0.14 (0-0.5) K/uL Baso # (Auto) 0.07 (0-0.2) K/uL Immature Gran # (Auto) 0.04 H (0.00-0.02) K/uL POC Sodium 136 (135-144) mmol/L Sodium 134 L (136-145) mmol/L POC Potassium 4.5 (3.3-5.0) mmol/L Potassium 4.5 (3.5-5.1) mmol/L POC Chloride 100 L (101-112) mmol/L Chloride 97 L (98-107) mmol/L Carbon Dioxide 25 (21-32) mmol/L POC Total CO2 26 (24-31) mmol/L Anion Gap 12 H (3-11) POC Anion Gap 15.0 L (16-25) mmol/L POC BUN 22 H (7-18) mg/dl BUN 17 (6-23) mg/dl Creatinine 0.72 (0.6-1.2) mg/dl POC Creatinine 0.7 (0.6-1.3) mg/dl Est Cr Clr Drug Dosing 109.5 ml/min Est GFR ( Amer) 111.6 ml/min Est GFR (Non-Af Amer) 96.3 ml/min BUN/Creatinine Ratio 23.6 H (10-20) Glucose 130 H (70-99(Fasting)) mg/dl POC Glucose (other) 141 H (70-99) mg/dl Calcium 10.9 H (8.5-10.1) mg/dl POC Ioniz Calcium Brandon 1.17 (1.12-1.32) mmol/l Total Bilirubin 0.7 (0.2-1.0) mg/dl AST 75 H (13-39) U/L ALT 132 H (7-52) U/L Alkaline Phosphatase 113 H (34-104) U/L Total Protein 8.3 (6.0-8.3) gm/dl Albumin 5.0 (3.4-5.0) gm/dl Globulin 3.3 (2.5-4.0) gm/dl Albumin/Globulin Ratio 1.5 (0.9-2) Lipase 21 (11-82) U/L Administered Medications Sodium Chloride (Nss) 500 mls @ 125 mls/hr IV .Q4H TY Stop: 08/05/21 05:59 Last Admin: 07/06/21 06:10 Dose: 125 mls/hr Documented by: [id number] Discontinued Medications Hydromorphone HCl (Hydromorphone Inj 1 Mg/Ml Syringe) 1 mg IV NOW STA Stop: 07/06/21 05:01 Last Admin: 07/06/21 05:09 Dose: 1 mg Documented by: [id number] Hydromorphone HCl (Hydromorphone Inj 0.5 Mg/0.5 Ml Syr) 0.5 mg IV NOW STA Stop: 07/06/21 06:48 Last Admin: 07/06/21 06:57 Dose: 0.5 mg Documented by: [id number] Sodium Chloride (Nss 1000ml) 1,000 mls @ 999 mls/hr IV .Q1H1M ONE Stop: 07/06/21 06:00 Last Infusion: 07/06/21 06:12 Dose: 0 mls/hr Documented by: [id number] Admin: 07/06/21 05:09 Dose: 999 mls/hr Documented by: [id number] Ioversol (Optiray 320 100ml) 95 ml IV ONCE ONE Stop: 07/06/21 05:46 Last Admin: 07/06/21 05:39 Dose: 95 ml Documented by: [id number] Ondansetron HCl (Ondansetron Inj 2 Mg/Ml 2 Ml Vial) 4 mg IV NOW STA Stop: 07/06/21 05:01 Last Admin: 07/06/21 05:09 Dose: 4 mg Documented by: [id number] Discharge Plan Visit Data Chief Complaint: Abdominal Pain Stated Complaint: ABD,VOMITING,DEHYDRATION ED Provider: Jo-Ann Meza Discharge Problem: SBO (small bowel obstruction) Forms Stand Alone Forms: [facility] Prescriptions Prescriptions: No Action doxycycline hyclate 50 mg capsule 50 mg PO HS Qty: 90 RF: 3 alprazolam 0.5 mg tablet 1 - 2 mg PO UD PRN (Reason: Anxiety) Qty: 90 RF: 0 multivitamin tablet 1 tab PO QAM RF: 0 loratadine [Claritin] 10 mg tablet 10 mg PO DAILY RF: 0 evening primrose oil 500 mg capsule 500 mg PO DAILY RF: 0 omega-3 fatty acids [Fish Oil Concentrate] 1,000 mg capsule 1,000 mg PO DAILY RF: 0 diphenhydramine HCl [Benadryl] 25 mg Capsule 25 mg PO HS RF: 0 bqrnaig-zmfuhvobhf-UCT-caff [Butalbital Compound W/Codeine] [id number] mg capsule 1 - 2 cap PO UD PRN (Reason: Migraine Headache) RF: 0 escitalopram oxalate 10 mg tablet 10 mg PO QAM RF: 0 biotin 1 mg Capsule 1 mg PO DAILY RF: 0 tramadol 50 mg tablet 50 mg PO Q6H PRN (Reason: pain) Qty: 12 RF: 0 Referrals Referrals: Milton Arguelles III, CRNP [Primary Care Provider] -
[2021-07-06 05:34] LABS: iSTAT Creatinine 0.7 mg/dl (0.6-1.3); iSTAT Hemoglobin 16.7 g/dl (12.0-16.0); iSTAT Ionized Calcium 1.17 mmol/l (1.12-1.32); iSTAT Potassium 4.5 mmol/L (3.3-5.0)
[2021-07-06 05:38] LABS: Basophils # (auto) 0.07 K/uL (0-0.2); Basophils % (auto) 0.5 %; Eosinophils # (auto) 0.14 K/uL (0-0.5); Eosinophils % (auto) 0.9 %; Hematocrit (blood only) 50.4 % (37-47); Hemoglobin 16.4 g/dL (12.0-16.0); Immature Granulocytes # (auto) 0.04 K/uL (0.00-0.02); Immature Granulocytes % (auto) 0.3 %; Lymphocytes # (auto) 2.76 K/uL (1.2-3.4); Lymphocytes % (auto) 17.9 %; Mean Corpuscular Hemoglobin 29.3 pg (25-34); Mean Corpuscular Hgb Conc 32.5 g/dL (32-36); Mean Platelet Volume 10.1 fL (7.4-10.4); Monocytes # (auto) 0.83 K/uL (0.11-0.59); Monocytes % (auto) 5.4 %; Neutrophils # (auto) 11.55 K/uL (1.4-6.5); Platelet Count 343 K/uL (130-400); RDW Coefficient of Variation 13.4 % (11.5-14.5); RDW Standard Deviation 43.8 fL (36.4-46.3); White Blood Count 15.39 K/uL (4.8-10.8)
[2021-07-06] MEDS ORDERED: OPTIRAY 320 100ml IV ONE (05:45)
[2021-07-06] MEDS: SODIUM CHLORIDE 0.9% 500 ML IV SCH ×2 (06:10→13:57)
[2021-07-06 06:43] LABS: Albumin Globulin Ratio 1.5 (0.9-2); BUN Creatinine Ratio 23.6 (10-20); Bilirubin,Total 0.7 mg/dl (0.2-1.0); Calcium 10.9 mg/dl (8.5-10.1); Creatinine Clr Calc Pharmacy 109.5 ml/min; Est GFR (African American) 111.6 ml/min; Est GFR (Non-African American) 96.3 ml/min; Globulin 3.3 gm/dl (2.5-4.0); Potassium 4.5 mmol/L (3.5-5.1); Total Protein 8.3 gm/dl (6.0-8.3)
[2021-07-06] MEDS ORDERED: HYDROmorphone INJ 0.5 MG/0.5 ML SYR IV STA ×2 (06:47→08:23)
--- NOTE | 2021-07-06 08:22 | CT Scan Report ---
ABDOMEN AND PELVIS CT WITH IV CONTRAST CT DOSE: 1198.66 mGy.cm HISTORY: Diffuse abdominal pain. Nausea. Vomiting. TECHNIQUE: Multiaxial CT images of the abdomen and pelvis were performed following the use of intrave nous contrast. A dose lowering technique was utilized adhering to the principles of ALARA. COMPARISON STUDY: Abdomen and pelvis CT 05/19/2020. FINDINGS: The lung bases are clear. No pneumoperitoneum. No pneumatosis. No fractures within the visu alized osseous structures. Bilateral breast implants are noted. Severe hepatic steatosis. Cholecystec ryann. The spleen, adrenal glands, pancreas, and kidneys are unremarkable. No hydronephrosis. No retro peritoneal lymphadenopathy. Normal caliber abdominal aorta. The main portal vein is patent. Trace asc ites is present. There is a fat-containing right lower quadrant hernia measuring 4.9 cm. The bladder is unremarkable. Prior hysterectomy. Rectosigmoid anastomosis is again noted. Colonic diverticulosis. No evidence for acute diverticulitis. The appendix is surgically absent. The duodenum and proximal j ejunum are decompressed. There are multiple dilated gas and fluid-filled loops of small bowel seen wi thin the abdomen. Distal transition point is noted at or just beyond the small bowel anastomosis with in the right lower quadrant on image 391.. Therefore, these findings are consistent with a small vincent l obstruction. There is a possible closed loop obstruction given the proximal decompressed jejunal lo ops. Best seen on image 236 there is suggestion of a small bowel fistula between multiple loops of je junum within the midabdomen. The distal ileum is decompressed. IMPRESSION: 1. High-grade small bowel obstruction with the distal transition point located at or just beyond the small bowel anastomosis within the right lower quadrant. The proximal jejunal loops are decompressed. Therefore, these findings raise the possibility of a closed loop obstruction. Surgical consultation recommended. 2. Prior cholecystectomy, hysterectomy, and appendectomy with postoperative changes again noted withi n the large and small bowel. 3. Hepatic steatosis. 4. Colonic diverticulosis. ACT 112: Negative or not required by law. Electronically signed by: Gene May M.D. 07/06/2021 8:21 AM
--- NOTE | 2021-07-06 09:02 | History & Physical Report ---
Date of Service July 06, 2021 History of Present Illness Primary Care Provider: Milton Arguelles, MANJIT, ABDIRAHMAN Annalisa is a 51-year-old female with a history of previous bowel obstruction, multiple previous abdominal surgeries who presented to the emergency department with severe diffuse abdominal pain for the last day. CT scan of abdomen pelvis stat rad read suspicious for SBO. Medical History: Reviewed Medications: Reviewed Surgical History: Reviewed Allergies: Reviewed Social History: Code Status: Patient surgery surgery Small bowel obstruction Patient with high risk of adhesions, multiple prior abdominal surgeries including cholecystectomy, appendectomy, hysterectomy, and colon resection for past SBO. CTA/P: In-house reread. High-grade small bowel obstruction just distal transition point located at or just beyond small bowel anastomosis within the right lower quadrant. Proximal jejunal loops are decompressed. Raises the possibility of closed-loop obstruction. Previous cholecystectomy, hysterectomy, appendectomy with postoperative changes noted. Hepatic steatosis, colonic diverticulosis without diverticulitis. Based on concern for closed-loop obstruction surgical consult placed Leukocytosis to 15.39, potassium 4.5, creatinine at normal baseline 0.72 Covid negative N.p.o. NSS 125 cc/h Pain control scaled hydromorphone every 4 hours as needed NGT to LIS Last colonoscopy 05/28/2020: Diverticulosis, normal ileum Depression/anxiety Hold home Lexapro while n.p.o. P.o. home alprazolam 1-2 mg as needed held while n.p.o., Ativan 0.5 mg daily as needed for anxiety Allergies Allergy/AdvReac Type Severity Reaction Status Date / Time adhesive AdvReac Unknown skin rash, Verified 07/06/21 08:56 and sore Home Medications Medication Instructions Recorded Confirmed Type multivitamin 1 tab PO QAM 10/28/18 05/14/21 History doxycycline hyclate 50 mg capsule 50 mg PO HS #90 cap 01/23/21 05/14/21 Rx loratadine 10 mg tablet (Claritin) 10 mg PO DAILY 03/08/21 05/14/21 History biotin 1 mg capsule 1 mg PO DAILY 03/28/21 05/14/21 History diphenhydramine HCl 25 mg capsule 25 mg PO HS 03/28/21 03/28/21 History (Benadryl) escitalopram oxalate 10 mg tablet 10 mg PO QAM 03/28/21 05/14/21 History alprazolam 0.5 mg tablet 1 - 2 mg PO UD PRN #90 tab 04/17/21 Rx tramadol 50 mg tablet 50 mg PO Q6H PRN #12 tab 05/14/21 Rx Past Med/Surg History Medical History Acne Anxiety Anxiety disorder Doing well on as needed Xanax. No medication changes at this time. Will re- evaluate this fall. PAT CALL MAR 28 2021 - DOSAGE HAS BEEN INCREASED, UPDATED WITH MEDICATION REVIEW. Diverticulitis RECENT FLARE UP/RESOLVING DVT (deep venous thrombosis) 1993 BILAT BEHIND KNEES (FROM CONTROL) Endometriosis HX High cholesterol ? History of COVID-29 Mar 2020 History of migraine headaches Lupus anticoagulant disorder Ovarian cyst HX Rosacea SBO (small bowel obstruction) 2017 & 2020 (SWALLOWED A QUARTER ACCIDENTALLY; LIQUID DIET/NGT, PASSED ON OWN ) Temporomandibular joint disorder HX LOCKING, BRACE HS Transaminitis PT DENIES LIVER PROBLEMS Surgical History History of appendectomy History of breast augmentation History of bunionectomy RT History of carpal tunnel release right wrist with ganglion cyst removal History of colonoscopy History of esophagogastroduodenoscopy (EGD) History of hysterectomy Laparoscopic PARTIAL History of nasal septoplasty History of tooth extraction History of ventral hernia repair Hx of LASIK bilateral S/P cholecystectomy 05/2016 - THIS SURGERY WAS AT THE SAME TIME A HERNIA SURGERY S/P colon resection 2013 BOWEL RESECTION AND Bowel resection due to recurrent diverticulitis with ileostomy placement 05/2016 and subsequent reversal S/P hernia repair Hernia surgery x 2 02/2017, 04/2017 - complicated by seroma formation requiring a wound vac Status post epigastric hernia repair, follow-up exam HX HERNIA UNDERNEATH STERNUM REPAIRED Family History Grandfather (Paternal) Family history of diabetes mellitus Mother Family history of esophageal cancer POSSIBLY Grandfather (Maternal) Hypertension Grandmother (Maternal) Allergies Other Abdominal wall hernia Acute diverticulitis Acute postoperative abdominal pain Closed head injury Constipation Contusion of left hip Contusion of right shoulder Contusion of soft tissue Encounter for removal of nasal packing Epistaxis Fall Gallstones Nausea No family history of adverse response to anesthesia No family history of bleeding disorder Postoperative abdominal pain Right ovarian cyst Sigmoid diverticulitis Small bowel obstruction Denies family history of Ovarian cancer Prostate cancer Myocardial infarction Breast cancer Colorectal cancer Social History Smoking Status: Never smoker Tobacco Type: Cigarettes Cigarettes Per Day: OCCACIONAL CIGARETTES - ADVISED NPO; Second Hand Exposure: Yes (AT WORK); Hx Alcohol Use: Yes Alcohol type: wine Alcohol Intake Frequency: 2-4 x/Month Hx Substance Use: No Preferred Language: Stateless Communication Ability: Effective Visual Impairment: No Limitations Hearing Ability: Normal 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 Beliefs That Will Affect Care: None marital status: Current Living Situation: Significant Other current occupational status: employed 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[employer] Feels Safe at Home: Yes Assistive Devices: Contacts and Glasses Results & Data Results & Data ([facility]) Vital Signs (Past 12 Hours) Vital Signs Temp Pulse Pulse Resp BP BP Pulse Ox 07/06/21 08:35 72 24 133/78 96 07/06/21 08:23 78 22 146/84 H 97 07/06/21 06:55 68 16 121/78 96 07/06/21 06:11 70 15 135/85 96 07/06/21 05:51 98 07/06/21 04:48 36.1 C L 105 H 18 126/82 98 PG Care Time/CCT Total # of Minutes Spent Total Time Spent with Patient: Total time spent is greater than 50% in coordination of care (as documented) at patient's floor/unit and/or counseling patient: Coding
[2021-07-06] MEDS ORDERED: ONDANSETRON INJ 2 MG/ML 2 ML VIAL IV PRN (10:41)
--- NOTE | 2021-07-06 10:41 | Surgery Consultation ---
Date of Consultation July 06, 2021 Assessment & Plan (1) SBO (small bowel obstruction): pt is a 51 year-old female who presents to Er wit 2 hours abdominal pain with nausea and vomiting, IMP: SBO, closed loop SBO ? Plan, no emergent surgery indication now, recommend internal medicine team admit to hospital, conservative now, NPO IV fluid, IV antibiotic, zosyn, control pain, NG tube insertion, repeat labs in morning, CBC, CMP, lactate acid, I also indicated that pt may need surgery treatment if pt's symptoms are getting worse in 6-12 hours, pt understood, she agrees with the plan, I answered all questions, History of Present Illness Reason for Consultation: SBO History of Present Illness CC: abdominal pain, HPI: 51/F arrives for evaluation ofabdominal pain. Patient developed diffuse abdominal pain around 8:30 AM yesterday morning. She has a history of small bowel obstructions. She has had multiple previous surgeries for diverticulitis including a colostomy and reversal of the colostomy. Patient became more concerned when she vomited approximately 1 hour ago. The pain is now severe. I ( Felipe Nair MD ) got a call for consult SBO, I reviewed pt's H/P, labs, CT scan with pt, pt feels better, less abdominal pain, no fever, pt had colectomy and ileostomy ( 2013) for diverticulitis, ventral hernia repair with mesh ( 2016), cholecystectomy ( 2016), appendectomy, Past Med/Surg History Medical History Acne Anxiety Anxiety disorder Doing well on as needed Xanax. No medication changes at this time. Will re- evaluate this fall. PAT CALL MAR 28 2021 - DOSAGE HAS BEEN INCREASED, UPDATED WITH MEDICATION REVIEW .Diverticulitis RECENT FLARE UP/RESOLVINGDVT (deep venous thrombosis) 1993 BILAT BEHIND KNEES (FROM CONTROL)Endometriosis HXHigh cholesterol ?History of COVID-29 Mar 2020History of migraine headaches Lupus anticoagulant disorder Ovarian cyst HXRosacea SBO (small bowel obstruction) 2017 & 2020 (SWALLOWED A QUARTER ACCIDENTALLY; LIQUID DIET/NGT, PASSED ON OWN )Temporomandibular joint disorder HX LOCKING, BRACE HSTransaminitis PT DENIES LIVER PROBLEMS Surgical History History of appendectomy History of breast augmentation History of bunionectomy RTHistory of carpal tunnel release right wrist with ganglion cyst removalHistory of colonoscopy History of esophagogastroduodenoscopy (EGD) History of hysterectomy Laparoscopic PARTIALHistory of nasal septoplasty History of tooth extraction History of ventral hernia repair Hx of LASIK bilateralS/P cholecystectomy 05/2016 - THIS SURGERY WAS AT THE SAME TIME A HERNIA SURGERYS/P colon resection 2013 BOWEL RESECTION AND Bowel resection due to recurrent diverticulitis with ileostomy placement 05/2016 and subsequent reversalS/P hernia repair Hernia surgery x 2 02/2017, 04/2017 - complicated by seroma formation requiring a wound vacStatus post epigastric hernia repair, follow-up exam HX HERNIA UNDERNEATH STERNUM REPAIRED Family History Grandfather (Paternal) Family history of diabetes mellitusMother Family history of esophageal cancer POSSIBLYGrandfather (Maternal) HypertensionGrandmother (Maternal) AllergiesOther Abdominal wall hernia Acute diverticulitis Acute postoperative abdominal pain Closed head injury Constipation Contusion of left hip Contusion of right shoulder Contusion of soft tissue Encounter for removal of nasal packing Epistaxis Fall Gallstones Nausea No family history of adverse response to anesthesia No family history of bleeding disorder Postoperative abdominal pain Right ovarian cyst Sigmoid diverticulitis Small bowel obstruction Denies family history of Ovarian cancer Prostate cancer Myocardial infarction Breast cancer Colorectal cancer Social History Smoking Status: Never smoker Tobacco Type: Cigarettes Cigarettes Per Day: OCCACIONAL CIGARETTES - ADVISED NPO; Second Hand Exposure: Yes (AT WORK); Hx Alcohol Use: Yes Alcohol type: wine Alcohol Intake Frequency: 2-4 x/Month Hx Substance Use: No Preferred Language: Emir[place] Communication Ability: Effective Visual Impairment: No Limitations Hearing Ability: Normal Collections Curator Required: No Beliefs That Will Affect Care: None marital status: Current Living Situation: Significant Other current occupational status: employed 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[employer] Feels Safe at Home: Yes Assistive Devices: Contacts and Glasses Allergies Allergies Allergy/AdvReac Type Severity Reaction Status Date / Time adhesive AdvReac Unknown skin rash, Verified 05/14/21 06:26 and sore Home Meds Home Medications Medication Instructions Recorded Confirmed multivitamin 1 tab PO QAM 10/28/18 05/14/21 evening primrose oil 500 mg capsule 500 mg PO DAILY cap 12/24/2008/30 omega-3 fatty acids 1,000 mg 1,000 mg PO DAILY 12/24/20 05/14/21 capsule (Fish Oil Concentrate) loratadine 10 mg tablet (Claritin) 10 mg PO DAILY 03/08/2105/14 biotin 1 mg capsule 1 mg PO DAILY 03/28/21 05/14/21 [id number]-[id number]-[id number]-caffeine 30 1 - 2 cap PO UD PRN 03/28/2103/28 mg-50 mg-325 mg-40 mg capsule (Butalbital Compound with Codeine) diphenhydramine HCl 25 mg capsule 25 mg PO HS 03/28/21 (Benadryl) escitalopram oxalate 10 mg tablet 10 mg PO QAM 03/28/21 Previous Rx's Medication Instructions Recorded doxycycline hyclate 50 mg capsule 50 mg PO HS #90 cap 01/23/21 alprazolam 0.5 mg tablet 1 - 2 mg PO UD PRN #90 tab 04/17/21 tramadol 50 mg tablet 50 mg PO Q6H PRN #12 tab 05/14/21 Results & Data (ED) Vital Signs Vital Signs - 24 hr 07/06/21 04:48 07/06/21 05:51 07/06/21 06:11 Temperature 36.1 C L Temperature Source Temporal Artery Scan Pulse Rate 105 H Pulse Rate [Apical] 70 Respiratory Rate 18 15 Respiratory Effort / Characteristics Respiratory Depth Normal Blood Pressure 126/82 Blood Pressure [Right Arm] 135/85 Blood Pressure Mean 96 Blood Pressure Mean [Right Arm] 101 Pulse Oximetry 98 98 96 Oxygen Delivery Method Room Air Room Air Room Air Sepsis Recent Fever Within 48 Hours No Sepsis New/Unexplained Change in Mental Status N/A Sepsis Action Taken by Nursing No Action Required 07/06/21 06:55 Temperature Temperature Source Pulse Rate Pulse Rate [Apical] 68 Respiratory Rate 16 Respiratory Effort / Characteristics Non-Labored Respiratory Depth Normal Blood Pressure G Blood Pressure [Right Arm] 121/78 Blood Pressure Mean Blood Pressure Mean [Right Arm] 92 Pulse Oximetry 96 Oxygen Delivery Method Room Air Sepsis Recent Fever Within 48 Hours Sepsis New/Unexplained Change in Mental Status Sepsis Action Taken by Nursing ROS: See above HPI for pertinent positives & negatives. A total of 10 systems reviewed and were otherwise negative. Allergies Allergy/AdvReac Type Severity Reaction Status Date / Time adhesive AdvReac Unknown skin rash, Verified 07/06/21 08:56 and sore Home Medications Medication Instructions Recorded Confirmed Type multivitamin 1 tab PO QAM 10/28/18 07/06/21 History doxycycline hyclate 50 mg capsule 50 mg PO HS #90 cap 01/23/21 07/06/21 Rx loratadine 10 mg tablet (Claritin) 10 mg PO QAM 03/08/21 07/06/21 History biotin 1 mg capsule 1 mg PO QAM 03/28/21 07/06/21 History diphenhydramine HCl 25 mg capsule 25 mg PO HS 03/28/21 07/06/21 History (Benadryl) escitalopram oxalate 10 mg tablet 10 mg PO QAM 03/28/21 07/06/21 History alprazolam 0.5 mg tablet See Rx Instructions .ROUTE 07/06/21 07/06/21 History .COMPLEX PRN fish, borage, flaxseed oils-omega 1 cap PO QAM 07/06/21 07/06/21 History 3,6,9 comb no.1 1,200 mg capsule ([place]ler 3-6-9) flaxseed oil 1,000 mg capsule 0 mg PO HS 07/06/21 07/06/21 History Patient History Medical History (Updated 07/06/21 @ 07:49 by Jo-Ann Meza DO) Acne Anxiety Anxiety disorder Doing well on as needed Xanax. No medication changes at this time. Will re- evaluate this fall. PAT CALL MAR 28 2021 - DOSAGE HAS BEEN INCREASED, UPDATED WITH MEDICATION REVIEW. Diverticulitis RECENT FLARE UP/RESOLVING DVT (deep venous thrombosis) 1993 BILAT BEHIND KNEES (FROM CONTROL) Endometriosis HX High cholesterol ? History of COVID-29 Mar 2020 History of migraine headaches Lupus anticoagulant disorder Ovarian cyst HX Rosacea SBO (small bowel obstruction) 2017 & 2020 (SWALLOWED A QUARTER ACCIDENTALLY; LIQUID DIET/NGT, PASSED ON OWN ) Temporomandibular joint disorder HX LOCKING, BRACE HS Transaminitis PT DENIES LIVER PROBLEMS Surgical History History of appendectomy History of breast augmentation History of bunionectomy RT History of carpal tunnel release right wrist with ganglion cyst removal History of colonoscopy History of esophagogastroduodenoscopy (EGD) History of hysterectomy Laparoscopic PARTIAL History of nasal septoplasty History of tooth extraction History of ventral hernia repair Hx of LASIK bilateral S/P cholecystectomy 05/2016 - THIS SURGERY WAS AT THE SAME TIME A HERNIA SURGERY S/P colon resection 2013 BOWEL RESECTION AND Bowel resection due to recurrent diverticulitis with ileostomy placement 05/2016 and subsequent reversal S/P hernia repair Hernia surgery x 2 02/2017, 04/2017 - complicated by seroma formation requiring a wound vac Status post epigastric hernia repair, follow-up exam HX HERNIA UNDERNEATH STERNUM REPAIRED Family History Grandfather (Paternal) Family history of diabetes mellitus Mother Family history of esophageal cancer POSSIBLY Grandfather (Maternal) Hypertension Grandmother (Maternal) Allergies Other Abdominal wall hernia Acute diverticulitis Acute postoperative abdominal pain Closed head injury Constipation Contusion of left hip Contusion of right shoulder Contusion of soft tissue Encounter for removal of nasal packing Epistaxis Fall Gallstones Nausea No family history of adverse response to anesthesia No family history of bleeding disorder Postoperative abdominal pain Right ovarian cyst Sigmoid diverticulitis Small bowel obstruction Denies family history of Ovarian cancer Prostate cancer Myocardial infarction Breast cancer Colorectal cancer Social History Smoking Status: Never smoker Tobacco Type: Cigarettes Cigarettes Per Day: OCCACIONAL CIGARETTES - ADVISED NPO; Second Hand Exposure: Yes (AT WORK); Hx Alcohol Use: Yes Alcohol type: wine Alcohol Intake Frequency: 2-4 x/Month Hx Substance Use: No Preferred Language: Emir[place] Communication Ability: Effective Visual Impairment: No Limitations Hearing Ability: Normal Collections Curator Required: No Beliefs That Will Affect Care: None marital status: Current Living Situation: Significant Other current occupational status: employed 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[employer] Feels Safe at Home: Yes Assistive Devices: Contacts and Glasses Physical Exam Constitutional: WD/WN, vitals as above no distress, Eyes: PERRL, conjunctivae normal, anicteric sclerae Neck: trachea midline, no thyromegaly Respiratory: normal respiratory effort, lungs clear to auscultation Cardiovascular: RRR, no murmur, no edema Gastrointestinal (Abdomen): soft, mild tenderness at periumbilical area, no rebound pain, no distend, middle line scar, BS + Musculoskeletal: no cyanosis or clubbing, extremities motor strength 5/5 Neurologic: patellar DTR's 2+ bilat, sensation intact Psychiatric: A+Ox3, euthymic affect Results & Data ([facility]) Vital Signs (Past 12 Hours) Vital Signs Temp Pulse Pulse Resp BP BP Pulse Ox 07/06/21 08:35 72 24 133/78 96 07/06/21 08:23 78 22 146/84 H 97 07/06/21 06:55 68 16 121/78 96 07/06/21 06:11 70 15 135/85 96 07/06/21 05:51 98 07/06/21 04:48 36.1 C L 105 H 18 126/82 98 Laboratory Results Abnormal lab results 07/06/21 07/06/21 07/06/21 Range/Units 05:15 05:15 05:21 WBC 15.39 H (4.8-10.8) K/uL RBC 5.60 H (4.2-5.4) M/uL Hgb 16.4 H (12.0-16.0) g/dL POC Hgb 16.7 H (12.0-16.0) g/dl Hct 50.4 H (37-47) % POC Hct 49 H (37-47) % Neut # (Auto) 11.55 H (1.4-6.5) K/uL [place] # (Auto) 0.83 H (0.11-0.59) K/uL Immature Gran # (Auto) 0.04 H (0.00-0.02) K/uL Sodium 134 L (136-145) mmol/L POC Chloride 100 L (101-112) mmol/L Chloride 97 L (98-107) mmol/L Anion Gap 12 H (3-11) POC Anion Gap 15.0 L (16-25) mmol/L POC BUN 22 H (7-18) mg/dl BUN/Creatinine Ratio 23.6 H (10-20) Glucose 130 H (70-99(Fasting)) mg/dl POC Glucose (other) 141 H (70-99) mg/dl Calcium 10.9 H (8.5-10.1) mg/dl AST 75 H (13-39) U/L ALT 132 H (7-52) U/L Alkaline Phosphatase 113 H (34-104) U/L Diagnostic Findings ABDOMEN AND PELVIS CT WITH IV CONTRAST CT DOSE: 1198.66 mGy.cm HISTORY: Diffuse abdominal pain. Nausea. Vomiting. TECHNIQUE: Multiaxial CT images of the abdomen and pelvis were performed following the use of intravenous contrast. A dose lowering technique was utilized adhering to the principles of ALARA. COMPARISON STUDY: Abdomen and pelvis CT 05/19/2020. FINDINGS: The lung bases are clear. No pneumoperitoneum. No pneumatosis. No fractures within the visualized osseous structures. Bilateral breast implants are noted. Severe hepatic steatosis. Cholecystectomy. The spleen, adrenal glands, pancreas, and kidneys are unremarkable. No hydronephrosis. No retroperitoneal lymphadenopathy. Normal caliber abdominal aorta. The main portal vein is patent. Trace ascites is present. There is a fat-containing right lower quadrant hernia measuring 4.9 cm. The bladder is unremarkable. Prior hysterectomy. Rectosigmoid anastomosis is again noted. Colonic diverticulosis. No evidence for acute diverticulitis. The appendix is surgically absent. The duodenum and proximal jejunum are decompressed. There are multiple dilated gas and fluid-filled loops of small bowel seen within the abdomen. Distal transition point is noted at or just beyond the small bowel anastomosis within the right lower quadrant on image [id number].. Therefore, these findings are consistent with a small bowel obstruction. There is a possible closed loop obstruction given the proximal decompressed jejunal loops. Best seen on image 236 there is suggestion of a small bowel fistula between multiple loops of jejunum within the midabdomen. The distal ileum is decompressed. IMPRESSION: 1. High-grade small bowel obstruction with the distal transition point located at or just beyond the small bowel anastomosis within the right lower quadrant. The proximal jejunal loops are decompressed. Therefore, these findings raise the possibility of a closed loop obstruction. Surgical consultation recommended. 2. Prior cholecystectomy, hysterectomy, and appendectomy with postoperative changes again noted within the large and small bowel. 3. Hepatic steatosis. 4. Colonic diverticulosis.
[2021-07-06] MEDS ORDERED: LORazepam 2 MG/1 ML VIAL IV STA (11:15)
--- NOTE | 2021-07-06 11:22 | History & Physical Report ---
Date of Service July 06, 2021 Assessment & Plan (1) SBO (small bowel obstruction): Plan: SBO with possible closed loop obstruction - General Surgery Consultation - appreciate following - NGT to LIWS - Ativan 0.5mg IV now for placement - KUB daily- further imaging per General Surgery to eval progression - LR at 125 ml - Pain control morphine 2 mg q6 prn - NPO - Follow abdominal exams, CBC, lactate in am (2) Abdominal pain with vomiting: Plan: Secondary to #1 - Evidence of hypovolemia with hemoconcentration on labs - Ringers solution at 125 ml/hour - mild gap with normal HCO3- should improve with above hydration (3) Elevated liver enzymes: Plan: With normal bilirubin normal lipase, patient has history of cholecystectomy - likely acute phase reactant - follow with hydration as above - CMP in morning (4) Anxiety: Plan: Chronic - as she is NPO hold escitalopram and Alprazolam - Ativan 0.5 mg q12 prn - follow (5) Allergic rhinitis: Plan: Chronic with frequent sinus infections - Has followed with ENT in the past [facility] septoplasty - Flonase 1spra daily with NGT in - can increase to BID - Can consider saline spray if needed - Hold Loratadine - Hold Benadryl (6) Dyslipidemia: Plan: Hold fish oil Plan: VTE Prophylaxis - heparin 5000 units Q12H History of Present Illness Primary Care Provider: Milton Arguelles, III, [employer] 51 YOF with past medical history of: diverticulosis, diverticulitis, bowel resection with ileostomy and ileostomy reanastomosis, hernia, sbo, migraine, anxiety, chronic sinusitis, COVID 03/31. Patient comes to the emergency room for one day history of left upper and lower quad abdominal pain followed by nausea and vomiting x3. Patient states that 07/05/21 around 0800 in the morning she had onset of left lower quad pain, which she had before with her diverticular disease. She thought that may have been the cause. She was able to eat throughout yesterday with fruits and vegetables and then had a Vince Sandwhich yesterday evening. She awoke arond 2-3 am with nausea and vomiting that continued to progress so she came to the EMD. The patient describes the pain as sharp and comes in waves. It was associated with feeling hot and sweaty when the pain is severe. Pain is located throughout abdomen but more tender in LUQ. She is tympanic throughout with gauriding. The pain was releived with pain medication. She reports that her emesis was mostly the Vito she ate yesterday. She had one bowel movement on 07/05/21 that was soft in nature. Prior to that she has not had any further complaints of constipation or diarrhea. She had pain medication in the form of Dilauded administered and CT scan of her abdomen and pelvis performed. CT scan interpreted as high-grade small bowel obstruction with transition point at or near her anastomosis site and proximal jejunal loops decompressed. General Surgery was consulted and evaluation performed while the patient was in the EMD. Recommend admission. Patient will be admitted to medical floor, will insert NGT to LIWS with her abdominal exam and persistent nausea with vomiting, provide hydration in the form of Ringer's Lactate, NPO with serial KUB. Appreciate General Surgery assistance. Patient COVID test on admission is: NEGATIVE Allergies Allergy/AdvReac Type Severity Reaction Status Date / Time adhesive AdvReac Unknown skin rash, Verified 07/06/21 08:56 and sore Home Medications Medication Instructions Recorded Confirmed Type multivitamin 1 tab PO QAM 10/28/18 07/06/21 History doxycycline hyclate 50 mg capsule 50 mg PO HS #90 cap 01/23/21 07/06/21 Rx loratadine 10 mg tablet (Claritin) 10 mg PO QAM 03/08/21 07/06/21 History biotin 1 mg capsule 1 mg PO QAM 03/28/21 07/06/21 History diphenhydramine HCl 25 mg capsule 25 mg PO HS 03/28/21 07/06/21 History (Benadryl) escitalopram oxalate 10 mg tablet 10 mg PO QAM 03/28/21 07/06/21 History alprazolam 0.5 mg tablet See Rx Instructions .ROUTE 07/06/21 07/06/21 History .COMPLEX PRN fish, borage, flaxseed oils-omega 1 cap PO QAM 07/06/21 07/06/21 History 3,6,9 comb no.1 1,200 mg capsule (Bellwood 3-6-9) flaxseed oil 1,000 mg capsule 0 mg PO HS 07/06/21 07/06/21 History Past Med/Surg History Medical History (Updated 07/06/21 @ 11:25 by ABDIRAHMAN Gonzalez) Acne Anxiety Anxiety disorder Doing well on as needed Xanax. No medication changes at this time. Will re- evaluate this fall. PAT CALL MAR 28 2021 - DOSAGE HAS BEEN INCREASED, UPDATED WITH MEDICATION REVIEW. Diverticulitis RECENT FLARE UP/RESOLVING DVT (deep venous thrombosis) 1993 BILAT BEHIND KNEES (FROM CONTROL) Endometriosis HX High cholesterol ? History of COVID-29 Mar 2020 History of migraine headaches Lupus anticoagulant disorder Ovarian cyst HX Rosacea SBO (small bowel obstruction) 2017 & 2020 (SWALLOWED A QUARTER ACCIDENTALLY; LIQUID DIET/NGT, PASSED ON OWN ) Temporomandibular joint disorder HX LOCKING, BRACE HS Transaminitis PT DENIES LIVER PROBLEMS Surgical History History of appendectomy History of breast augmentation History of bunionectomy RT History of carpal tunnel release right wrist with ganglion cyst removal History of colonoscopy History of esophagogastroduodenoscopy (EGD) History of hysterectomy Laparoscopic PARTIAL History of nasal septoplasty History of tooth extraction History of ventral hernia repair Hx of LASIK bilateral S/P cholecystectomy 05/2016 - THIS SURGERY WAS AT THE SAME TIME A HERNIA SURGERY S/P colon resection 2013 BOWEL RESECTION AND Bowel resection due to recurrent diverticulitis with ileostomy placement 05/2016 and subsequent reversal S/P hernia repair Hernia surgery x 2 02/2017, 04/2017 - complicated by seroma formation requiring a wound vac Status post epigastric hernia repair, follow-up exam HX HERNIA UNDERNEATH STERNUM REPAIRED Family History Grandfather (Paternal) Family history of diabetes mellitus Mother Family history of esophageal cancer POSSIBLY Grandfather (Maternal) Hypertension Grandmother (Maternal) Allergies Other Abdominal wall hernia Acute diverticulitis Acute postoperative abdominal pain Closed head injury Constipation Contusion of left hip Contusion of right shoulder Contusion of soft tissue Encounter for removal of nasal packing Epistaxis Fall Gallstones Nausea No family history of adverse response to anesthesia No family history of bleeding disorder Postoperative abdominal pain Right ovarian cyst Sigmoid diverticulitis Small bowel obstruction Denies family history of Ovarian cancer Prostate cancer Myocardial infarction Breast cancer Colorectal cancer Social History Smoking Status: Never smoker Tobacco Type: Cigarettes Cigarettes Per Day: OCCACIONAL CIGARETTES - ADVISED NPO; Second Hand Exposure: Yes (AT WORK); Hx Alcohol Use: Yes Alcohol type: wine Alcohol Intake Frequency: 2-4 x/Month Hx Substance Use: No Preferred Language: Slovak Communication Ability: Effective Visual Impairment: No Limitations Hearing Ability: Normal [employer]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 Beliefs That Will Affect Care: None marital status: Current Living Situation: Significant Other current occupational status: employed 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[employer] Other Information That Helps Us Care for You: No Feels Safe at Home: Yes Safety Concerns: Feels Safe At This Time Assistive Devices: None Review of Systems Review of Systems: REVIEW OF SYSTEMS: Constitutional: No fever, sweats or chills Eyes: No diplopia, no worsening or blurred vision ENT: normal hearing, no trouble swallowing Respiratory: No cough, sputum, dyspnea at rest or on exertion Cardiovascular: No chest pain, tightness or palpitations Abdomen: (+) pain, nausea, vomiting, NO diarrhea or constipation Musculoskeletal: No joint pain, calf pain, swelling Neurologic: No weakness, numbness/tingling, or balance problems Psychiatric: (+)) anxiety Skin: No rash or itch Physical Exam Physical Exam: PHYSICAL EXAM: General: awake, alert, uncomfortable appearance Head: Normocephalic, atraumatic ENT: PERRL, EOMI, no pharyngeal exudate, mucous membranes dry Neuro: AAO x 3, speech clear and appropriate, strength intact bilaterally 5/5, sensation intact and equal all extremities and dermatomes, no pronator drift Chest: equal rise and fall of the chest, no accessory muscle use, no heaves or thrills, Clear to auscultation, on room air, Cardiac: Regular rate and rhythm, telemetry reviewed- NSR no ectopy, skin warm dry, cap refill <3 seconds, peripheral pulses +2 no JVD, no murmur, no edema GI: abdomen tympanic, distended, hypoactive bowel sounds throughout, distended, mild guarding, no rebound, no perforation/pneumatosis per imaging : Spontaneously voiding, no pain, no CVA tenderness, Extremities: Normal inspection, no peripheral edema or erythema, calfs nontender to palpation Psych: Normal mood and affect Skin: no rash or erythema Results & Data Results & Data ([facility]) Vital Signs (Past 12 Hours) Vital Signs Temp Pulse Pulse Resp BP BP Pulse Ox 07/06/21 08:35 72 24 133/78 96 07/06/21 08:23 78 22 146/84 H 97 07/06/21 06:55 68 16 121/78 96 07/06/21 06:11 70 15 135/85 96 07/06/21 05:51 98 07/06/21 04:48 36.1 C L 105 H 18 126/82 98 Laboratory Results Abnormal lab results 07/06/21 07/06/21 07/06/21 Range/Units 05:15 05:15 05:21 WBC 15.39 H (4.8-10.8) K/uL RBC 5.60 H (4.2-5.4) M/uL Hgb 16.4 H (12.0-16.0) g/dL POC Hgb 16.7 H (12.0-16.0) g/dl Hct 50.4 H (37-47) % POC Hct 49 H (37-47) % Neut # (Auto) 11.55 H (1.4-6.5) K/uL Maverick # (Auto) 0.83 H (0.11-0.59) K/uL Immature Gran # (Auto) 0.04 H (0.00-0.02) K/uL Sodium 134 L (136-145) mmol/L POC Chloride 100 L (101-112) mmol/L Chloride 97 L (98-107) mmol/L Anion Gap 12 H (3-11) POC Anion Gap 15.0 L (16-25) mmol/L POC BUN 22 H (7-18) mg/dl BUN/Creatinine Ratio 23.6 H (10-20) Glucose 130 H (70-99(Fasting)) mg/dl POC Glucose (other) 141 H (70-99) mg/dl Calcium 10.9 H (8.5-10.1) mg/dl AST 75 H (13-39) U/L ALT 132 H (7-52) U/L Alkaline Phosphatase 113 H (34-104) U/L Diagnostic Findings Abdomen/Pelvis CT 07/06/21 05:[address] WITH IV CONTRAST CT DOSE: 1198.66 mGy.cm HISTORY: Diffuse abdominal pain. Nausea. Vomiting. TECHNIQUE: Multiaxial CT images of the abdomen and pelvis were performed following the use of intravenous contrast. A dose lowering technique was utilized adhering to the principles of ALARA. COMPARISON STUDY: Abdomen and pelvis CT 05/19/2020. FINDINGS: The lung bases are clear. No pneumoperitoneum. No pneumatosis. No fractures within the visualized osseous structures. Bilateral breast implants are noted. Severe hepatic steatosis. Cholecystectomy. The spleen, adrenal glands, pancreas, and kidneys are unremarkable. No hydronephrosis. No retroperitoneal lymphadenopathy. Normal caliber abdominal aorta. The main portal vein is patent. Trace ascites is present. There is a fat-containing right lower quadrant hernia measuring 4.9 cm. The bladder is unremarkable. Prior hysterectomy. Rectosigmoid anastomosis is again noted. Colonic diverticulosis. No evidence for acute diverticulitis. The appendix is surgically absent. The duodenum and proximal jejunum are decompressed. There are multiple dilated gas and fluid-filled loops of small bowel seen within the abdomen. Distal transition point is noted at or just beyond the small bowel anastomosis within the right lower quadrant on image 391.. Therefore, these findings are consistent with a small bowel obstruction. There is a possible closed loop obstruction given the proximal decompressed jejunal loops. Best seen on image 236 there is suggestion of a small bowel fistula between multiple loops of jejunum within the midabdomen. The distal ileum is decompressed. IMPRESSION: 1. High-grade small bowel obstruction with the distal transition point located at or just beyond the small bowel anastomosis within the right lower quadrant. The proximal jejunal loops are decompressed. Therefore, these findings raise the possibility of a closed loop obstruction. Surgical consultation recommended. 2. Prior cholecystectomy, hysterectomy, and appendectomy with postoperative changes again noted within the large and small bowel. 3. Hepatic steatosis. 4. Colonic diverticulosis. ACT 112: Negative or not required by law. Electronically signed by: Gene May M.D. 07/06/2021 8:21 AM Medications Administered Home Medications multivitamin 1 tab PO QAM 10/28/18 [History Confirmed 07/06/21] doxycycline hyclate 50 mg capsule 50 mg PO HS #90 cap 01/23/21 [Rx Confirmed 07/06/21] loratadine 10 mg tablet (Claritin) 10 mg PO QAM 03/08/21 [History Confirmed 07/06/21] biotin 1 mg capsule 1 mg PO QAM 03/28/21 [History Confirmed 07/06/21] diphenhydramine HCl 25 mg capsule (Benadryl) 25 mg PO HS 03/28/21 [History Confirmed 07/06/21] escitalopram oxalate 10 mg tablet 10 mg PO QAM 03/28/21 [History Confirmed 07/06/21] alprazolam 0.5 mg tablet See Rx Instructions .ROUTE .COMPLEX PRN 07/06/21 [History Confirmed 07/06/21] fish, borage, flaxseed oils-omega 3,6,9 comb no.1 1,200 mg capsule ([place]wood 3-6-9) 1 cap PO QAM 07/06/21 [History Confirmed 07/06/21] flaxseed oil 1,000 mg capsule 0 mg PO HS 07/06/21 [History Confirmed 07/06/21] Active Medications Heparin Sodium (Porcine) (Heparin Sod 5,000 Unit/0.5 Ml Vial) 5,000 units SQ Q 12 TY Stop: 08/05/21 20:59 Sodium Chloride (Nss) 500 mls @ 125 mls/hr IV .Q4H TY Stop: 08/05/21 05:59 Last Infusion: 07/06/21 10:30 Dose: Infused Documented by: Lactated Ringer's (Lr) 1,000 mls @ 125 mls/hr IV .Q8H TY Stop: 08/05/21 10:44 Morphine Sulfate (Morphine Sulfate 2 Mg/Ml Carp) 2 mg IV Q6 PRN PRN Reason: Pain Stop: 07/20/21 10:40 Ondansetron HCl (Ondansetron Inj 2 Mg/Ml 2 Ml Vial) 4 mg IV Q6H PRN PRN Reason: Nausea Stop: 08/05/21 10:40 Sodium Chloride (Nss) 500 mls @ 125 mls/hr IV .Q4H TY Stop: 08/05/21 05:59 Last Infusion: 07/06/21 10:30 Dose: 0 mls/hr Documented by: [id number] Admin: 07/06/21 06:10 Dose: 125 mls/hr Documented by: [id number] Discontinued Medications Hydromorphone HCl (Hydromorphone Inj 1 Mg/Ml Syringe) 1 mg IV NOW STA Stop: 07/06/21 05:01 Last Admin: 07/06/21 05:09 Dose: 1 mg Documented by: [id number] Hydromorphone HCl (Hydromorphone Inj 0.5 Mg/0.5 Ml Syr) 0.5 mg IV NOW STA Stop: 07/06/21 06:48 Last Admin: 07/06/21 06:57 Dose: 0.5 mg Documented by: [id number] Hydromorphone HCl (Hydromorphone Inj 0.5 Mg/0.5 Ml Syr) 0.5 mg IV NOW STA Stop: 07/06/21 08:24 Last Admin: 07/06/21 08:28 Dose: 0.5 mg Documented by: [id number] Sodium Chloride (Nss 1000ml) 1,000 mls @ 999 mls/hr IV .Q1H1M ONE Stop: 07/06/21 06:00 Last Infusion: 07/06/21 06:12 Dose: 0 mls/hr Documented by: [id number] Admin: 07/06/21 05:09 Dose: 999 mls/hr Documented by: [id number] Ioversol (Optiray 320 100ml) 95 ml IV ONCE ONE Stop: 07/06/21 05:46 Last Admin: 07/06/21 05:39 Dose: 95 ml Documented by: [id number] Ondansetron HCl (Ondansetron Inj 2 Mg/Ml 2 Ml Vial) 4 mg IV NOW STA Stop: 07/06/21 05:01 Last Admin: 07/06/21 05:09 Dose: 4 mg Documented by: [id number] ECG Additional Comments: pending on admission Code Status & VTE Plan Code Status CODE: FULL VTE: SCDs, ambulation, Heparin 5000 units q12 VTE Prophylaxis Plan VTE Prophylaxis will be ordered: Yes Supervising Physician Co-Signing Physician Notes I personally saw and examined the patient. I verified all sofia points and agree with ABDIRAHMAN Magaña with the following exceptions and/or additions: 51 year old female admission for abdominal pain, nausea and vomiting. SBO on CT with concern for closed loop. O/E HS 1+2, RRR, no murmurs, Chest CTAB, Abdo soft, generalized mild tenderness A/P SBO - Appreciate surgery recommendations, already appears to be improving with bowel movements, abdomen less distended and less nausea. Difficulty passing NG tube and no need to insert at this stage. PG Care Time/CCT Total # of Minutes Spent Total Time Spent with Patient: Total time spent is greater than 50% in coordination of care (as documented) at patient's floor/unit and/or counseling patient: Coding Level of Care Code 68947 Initial Inpt Care Lvl 2 Diagnoses SBO (small bowel obstruction) K56.609 Allergic rhinitis J30.9 Dyslipidemia E78.5 Anxiety F41.9 Abdominal pain with vomiting R10.9; R11.10 Elevated liver enzymes R74.8
[2021-07-06] MEDS ORDERED: LORazepam 2 MG/1 ML VIAL IV PRN (13:12)
[2021-07-06] MEDS: LACTATED RINGER'S 1,000 ML IV SCH ×2 (13:38→21:51)
[2021-07-06 18:09] LABS: Appearance Urine Clear (Clear); Bacteria Urine Automated Negative (Negative); Bilirubin Urine Negative (Negative); Blood Urine Negative (Negative); Color Urine Dark Yellow; Epithelial Cell Urine Auto >30 /lpf (0-5); Glucose Urine UA Negative (Negative); Ketones Urine Negative (Negative); Leukocyte Esterase Urine 1+ (Negative); Nitrite Urine Negative (Negative); Protein Urine Negative (Negative); RBC Urine Automated 0-4 /hpf (0-4); Specific Gravity Urine 1.041 (1.000-1.030); Urobilinogen Urine Negative (Negative); WBC Urine Automated >30 /hpf (0-5)
[2021-07-06 18:21] LABS: Cast Urine Automated 0 /lpf (0-5)
[2021-07-06] MEDS: HEPARIN SOD 5,000 UNIT/0.5 ML VIAL SQ SCH (19:29)
[2021-07-06] MEDS: MoRPHine SULFATE 2 MG/ML CARP IV PRN (19:29)
[2021-07-07] MEDS: LACTATED RINGER'S 1,000 ML IV SCH ×3 (05:31→20:18)
[2021-07-07] MEDS: HEPARIN SOD 5,000 UNIT/0.5 ML VIAL SQ SCH ×2 (07:55→20:19)
[2021-07-07] MEDS: FLUTICASONE PROPIONATE NA SPR 16 GM BTL SCH (07:55)
--- NOTE | 2021-07-07 08:01 | XRay Report ---
KUB CLINICAL HISTORY: Small bowel obstruction. COMPARISON STUDY: CT of the abdomen and pelvis July 06, 2021. FINDINGS: Cholecystectomy clips are noted. A loop of moderately dilated small bowel within left mid a bdomen measures 5.4 cm in caliber. Small bowel dilatation has decreased since prior CT although fluid -filled small bowel loops may be occult by radiography. There is a posterior gas within the colon and rectum. IMPRESSION: Persistent small bowel obstruction. By radiography, dilatation appears improved however f luid-filled loops may be occult and therefore continued close clinical follow-up and radiographic fol low-up is recommended. ACT 112: Negative or not required by law. Electronically signed by: Devin Soliz M.D. 07/07/2021 8:00 AM
[2021-07-07 08:26] LABS: Albumin Level 4.2 gm/dl (3.4-5.0); BUN Creatinine Ratio 18.2 (10-20); Bilirubin,Total 0.7 mg/dl (0.2-1.0); Calcium 8.6 mg/dl (8.5-10.1); Creatinine Clr Calc Pharmacy 119.5 ml/min; Est GFR (African American) 117.7 ml/min; Est GFR (Non-African American) 101.6 ml/min; Magnesium 1.9 mg/dl (1.7-2.4); Potassium 3.6 mmol/L (3.5-5.1); Total Protein 6.8 gm/dl (6.0-8.3)
[2021-07-07 08:36] LABS: Basophils # (auto) 0.04 K/uL (0-0.2); Basophils % (auto) 0.5 %; Eosinophils # (auto) 0.28 K/uL (0-0.5); Eosinophils % (auto) 3.8 %; Hematocrit (blood only) 42.6 % (37-47); Hemoglobin 13.5 g/dL (12.0-16.0); Immature Granulocytes # (auto) 0.01 K/uL (0.00-0.02); Immature Granulocytes % (auto) 0.1 %; Lymphocytes # (auto) 3.31 K/uL (1.2-3.4); Mean Corpuscular Hemoglobin 29.2 pg (25-34); Mean Corpuscular Hgb Conc 31.7 g/dL (32-36); Mean Platelet Volume 9.9 fL (7.4-10.4); Monocytes # (auto) 0.53 K/uL (0.11-0.59); Monocytes % (auto) 7.2 %; Neutrophils # (auto) 3.18 K/uL (1.4-6.5); Neutrophils % (auto) 43.4 %; Platelet Count 284 K/uL (130-400); RDW Coefficient of Variation 13.6 % (11.5-14.5); RDW Standard Deviation 45.7 fL (36.4-46.3); Red Blood Count 4.63 M/uL (4.2-5.4); White Blood Count 7.35 K/uL (4.8-10.8)
[2021-07-07] MEDS: MoRPHine SULFATE 2 MG/ML CARP IV PRN ×2 (10:21→20:18)
--- NOTE | 2021-07-07 11:44 | Surgery Progress Note ---
Date of Service July 07, 2021 Assessment & Plan (1) SBO (small bowel obstruction): Plan: pt is a 51 year-old female who presents to Er wit 2 hours abdominal pain with nausea and vomiting, IMP: SBO, closed loop SBO ? Plan, no emergent surgery indication now, recommend internal medicine team admit to hospital, conservative now, NPO IV fluid, IV antibiotic, zosyn, control pain, NG tube insertion, repeat labs in morning, CBC, CMP, lactate acid, I also indicated that pt may need surgery treatment if pt's symptoms are getting worse in 6-12 hours, pt understood, she agrees with the plan, I answered all questions, 07/07/2021 11:46AM F/U SBO, possible loop bowel obstruction, pt is doing better, passed BM, normal WBC, and lactate acid, KUB still possible loop bowel obstruction, I recommend to do small bowel follow through study, to R/U loop bowel obstructio n, D/W benefits, risks and alternatives of the study, pt understood, I answered all questions, will F/U, Admission and Anticipated Discharge Date Admission Date: July 06, 2021 Supervising Physician Co-Signing Physician Notes I personally saw and examined the patient. I verified all sofia points and agree with ABDIRAHMAN Magaña with the following exceptions and/or additions: 51 year old female admission for abdominal pain, nausea and vomiting. SBO on CT with concern for closed loop. O/E HS 1+2, RRR, no murmurs, Chest CTAB, Abdo soft, generalized mild tenderness A/P SBO - Appreciate surgery recommendations, already appears to be improving with bowel movements, abdomen less distended and less nausea. Difficulty passing NG tube and no need to insert at this stage. Subjective F/U SBO, possible loop bowel obstruction, pt said she is doing much better, less abdominal pain, passed BM X 3, no nausea, no vomiting, no fever, Physical Exam Constitutional: WD/WN, vitals as above Eyes: PERRL, conjunctivae normal, anicteric sclerae Neck: trachea midline, no thyromegaly Respiratory: normal respiratory effort, lungs clear to auscultation Cardiovascular: RRR, no murmur, no edema Gastrointestinal (Abdomen): soft, mild tenderness at periumbilical are, no rebound pain, no distend, BS + Musculoskeletal: no cyanosis or clubbing, extremities motor strength 5/5 Neurologic: patellar DTR's 2+ bilat, sensation intact Psychiatric: A+Ox3, euthymic affect Results & Data ([facility]) Vital Signs (Past 12 Hours) Vital Signs Temp Pulse Resp BP Pulse Ox 07/07/21 07:30 36.3 C L 89 18 167/89 H 98 Laboratory Results Abnormal lab results 07/06/21 07/07/21 07/07/21 Range/Units 17:55 07:36 07:36 MCHC 31.7 L (32-36) g/dL Sodium 134 L (136-145) mmol/L AST 59 H (13-39) U/L ALT 116 H (7-52) U/L Ur Specific [place] 1.041 H (1.000-1.030) Ur Leukocyte Esterase 1+ H (Negative) Urine WBC (Auto) >30 H (0-5) /hpf U Epithel Cells (Auto) >30 H (0-5) /lpf Diagnostic Findings KUB CLINICAL HISTORY: Small bowel obstruction. COMPARISON STUDY: CT of the abdomen and pelvis July 06, 2021. FINDINGS: Cholecystectomy clips are noted. A loop of moderately dilated small bowel within left mid abdomen measures 5.4 cm in caliber. Small bowel dilatation has decreased since prior CT although fluid-filled small bowel loops may be occult by radiography. There is a posterior gas within the colon and rectum. IMPRESSION: Persistent small bowel obstruction. By radiography, dilatation appears improved however fluid-filled loops may be occult and therefore continued close clinical follow-up and radiographic follow-up is recommended.
--- NOTE | 2021-07-07 12:43 | Electrocardiogram Report ---
Test Reason : Blood Pressure : / mmHG Vent. Rate : 071 BPM Atrial Rate : 071 BPM P-R Int : 172 ms QRS Dur : 086 ms QT Int : 406 ms P-R-T Axes : 049 037 025 degrees QTc Int : 441 ms Normal sinus rhythm with sinus arrhythmia Normal ECG When compared with ECG of 03-JUN-2018 13:54, No significant change was found Confirmed by Kiran Lugo ([id number]) on 07/07/2021 12:43:25 PM Referred By: REFERRED SELF Confirmed By:Kiran Lugo
--- NOTE | 2021-07-07 17:33 | Hospitalist Progress Note ---
Date of Service July 07, 2021 Assessment & Plan (1) SBO (small bowel obstruction): Plan: SBO with possible closed loop obstruction. With a h/o numerous bowel surgeries, likely adhesive disease as cause Improving. NGT unable to be placed Now passing flatus, stools on 07/07 Lactate normal, WBC count normalized Still with some +TTP LLQ, no nausea - General Surgery Consultation - appreciate -continue IVFs -pain control prn -had a cup of coffee on 07/07 but otherwise is to remain NPO -plan for SBFT tomorrow and if improving, adv diet -follow CBC, CMP, Mag, phos (2) Abdominal pain with vomiting: Plan: Secondary to SBO Now resolved lyte abnormalities now improved continue IVFs (3) Elevated liver enzymes: Plan: With normal bilirubin, normal lipase, patient has history of cholecystectomy Has severely fatty liver on CT abd/pel Also notes a +FH of Father with HH LFTs trending downward today Counseled on importance of low carb diet, weight loss, and following up with PCP or GI for liver. Should also consider HH testing check Fe studies in AM (4) Anxiety: Plan: Chronic - as she is NPO hold escitalopram and Alprazolam -low risk for withdrawal from Lexapro - Ativan 0.5 mg q12 prn - follow (5) Allergic rhinitis: Plan: Chronic with frequent sinus infections - Has followed with ENT in the past [facility] septoplasty - Flonase 1spra daily with NGT in - can increase to BID - Can consider saline spray if needed - Hold Loratadine - Hold Benadryl (6) Dyslipidemia: Plan: Hold fish oil check lipids in AM has h/o severe fatty liver and elevated cholesterol without treatment (7) Hepatic steatosis: Plan: as above check HgbA1C in AM encouraged weight loss, low carb diet Plan: VTE Prophylaxis - heparin 5000 units Q12H Dispo-continued stay, possible dc to [facility] 1-2 days if continues to improve Admission and Anticipated Discharge Date Admission Date: July 06, 2021 Subjective Feeling better. Still some pain in LLQ with palpation but is passing loose stool. Denies N/V. No CP, SOB, or lightheadedness. Review of Systems Review of Systems: All systems reviewed & are unremarkable except as noted in HPI & below Physical Exam Constitutional: WD/WN, vitals as above Eyes: + anicteric sclerae ENMT: external ear and nose normal, oropharynx normal Neck: trachea midline, no thyromegaly Respiratory: normal respiratory effort, lungs clear to auscultation Cardiovascular: RRR, no murmur, no edema Chest (Breasts): Chest: normal inspection of chest Gastrointestinal (Abdomen): Inspection/Auscultation: normal bowel sounds; + abdomen abnormal to inspection (multiple surgical scars) Percussion/Palpation: + abdomen tender (in LLQ without guarding or rebound) and abdomen soft Musculoskeletal: Extremities: extremities normal to inspection; no cyanosis and no clubbing Skin: no rashes, warm and dry Neurologic: moves all extremities and awake; no focal motor deficits Psychiatric: A+Ox3, euthymic affect Lymphatic: no lymphedema Results & Data Results & Data ([facility]) Vital Signs (Past 12 Hours) Vital Signs Temp Pulse Resp BP Pulse Ox 07/07/21 16:00 36.6 C 87 18 138/87 91 07/07/21 07:30 36.3 C L 89 18 167/89 H 98 Laboratory Results 07/07/21 07/07/21 07/07/21 Range/Units 07:40 07:36 07:36 WBC 7.35 (4.8-10.8) K/uL RBC 4.63 (4.2-5.4) M/uL Hgb 13.5 (12.0-16.0) g/dL Hct 42.6 (37-47) % MCV 92.0 (80-100) fL MCH 29.2 (25-34) pg MCHC 31.7 L (32-36) g/dL RDW Std Deviation 45.7 (36.4-46.3) fL RDW Coeff of Silvia 13.6 (11.5-14.5) % Plt Count 284 (130-400) K/uL MPV 9.9 (7.4-10.4) fL Immature Gran % (Auto) 0.1 % Neut % (Auto) 43.4 % Lymph % (Auto) 45.0 % [place] % (Auto) 7.2 % Eos % (Auto) 3.8 % Baso % (Auto) 0.5 % Neut # (Auto) 3.18 (1.4-6.5) K/uL Lymph # (Auto) 3.31 (1.2-3.4) K/uL [place] # (Auto) 0.53 (0.11-0.59) K/uL Eos # (Auto) 0.28 (0-0.5) K/uL Baso # (Auto) 0.04 (0-0.2) K/uL Immature Gran # (Auto) 0.01 (0.00-0.02) K/uL Sodium 134 L (136-145) mmol/L Potassium 3.6 (3.5-5.1) mmol/L Chloride 102 (98-107) mmol/L Carbon Dioxide 25 (21-32) mmol/L Anion Gap 7 (3-11) BUN 12 (6-23) mg/dl Creatinine 0.66 (0.6-1.2) mg/dl Est Cr Clr Drug Dosing 119.5 ml/min Est GFR ( Amer) 117.7 ml/min Est GFR (Non-Af Amer) 101.6 ml/min BUN/Creatinine Ratio 18.2 (10-20) Glucose 93 (70-99(Fasting)) mg/dl Lactate 1.2 (0.4-2.0) mmol/L Calcium 8.6 D (8.5-10.1) mg/dl Magnesium 1.9 (1.7-2.4) mg/dl Total Bilirubin 0.7 (0.2-1.0) mg/dl Direct Bilirubin 0.0 (0-0.2) mg/dl AST 59 H (13-39) U/L ALT 116 H (7-52) U/L Alkaline Phosphatase 90 (34-104) U/L Total Protein 6.8 (6.0-8.3) gm/dl Albumin 4.2 (3.4-5.0) gm/dl Urine Color Urine Appearance (Clear) Urine pH (4.5-7.5) Ur Specific [place] (1.000-1.030) Urine Protein (Negative) Urine Glucose (UA) (Negative) Urine Ketones (Negative) Urine Blood (Negative) Urine Nitrite (Negative) Urine Bilirubin (Negative) Urine Urobilinogen (Negative) Ur Leukocyte Esterase (Negative) Urine WBC (Auto) (0-5) /hpf Urine RBC (Auto) (0-4) /hpf U Hyaline Cast (Auto) (0-5) /lpf U Epithel Cells (Auto) (0-5) /lpf Urine Bacteria (Auto) (Negative) 07/06/21 Range/Units 17:55 WBC (4.8-10.8) K/uL RBC (4.2-5.4) M/uL Hgb (12.0-16.0) g/dL Hct (37-47) % MCV (80-100) fL MCH (25-34) pg MCHC (32-36) g/dL RDW Std Deviation (36.4-46.3) fL RDW Coeff of Silvia (11.5-14.5) % Plt Count (130-400) K/uL MPV (7.4-10.4) fL Immature Gran % (Auto) % Neut % (Auto) % Lymph % (Auto) % [place] % (Auto) % Eos % (Auto) % Baso % (Auto) % Neut # (Auto) (1.4-6.5) K/uL Lymph # (Auto) (1.2-3.4) K/uL [place] # (Auto) (0.11-0.59) K/uL Eos # (Auto) (0-0.5) K/uL Baso # (Auto) (0-0.2) K/uL Immature Gran # (Auto) (0.00-0.02) K/uL Sodium (136-145) mmol/L Potassium (3.5-5.1) mmol/L Chloride (98-107) mmol/L Carbon Dioxide (21-32) mmol/L Anion Gap (3-11) BUN (6-23) mg/dl Creatinine (0.6-1.2) mg/dl Est Cr Clr Drug Dosing ml/min Est GFR ( Amer) ml/min Est GFR (Non-Af Amer) ml/min BUN/Creatinine Ratio (10-20) Glucose (70-99(Fasting)) mg/dl Lactate (0.4-2.0) mmol/L Calcium (8.5-10.1) mg/dl Magnesium (1.7-2.4) mg/dl Total Bilirubin (0.2-1.0) mg/dl Direct Bilirubin (0-0.2) mg/dl AST (13-39) U/L ALT (7-52) U/L Alkaline Phosphatase (34-104) U/L Total Protein (6.0-8.3) gm/dl Albumin (3.4-5.0) gm/dl Urine Color Dark Yellow Urine Appearance Clear (Clear) Urine pH 6.0 (4.5-7.5) Ur Specific [place] 1.041 H (1.000-1.030) Urine Protein Negative (Negative) Urine Glucose (UA) Negative (Negative) Urine Ketones Negative (Negative) Urine Blood Negative (Negative) Urine Nitrite Negative (Negative) Urine Bilirubin Negative (Negative) Urine Urobilinogen Negative (Negative) Ur Leukocyte Esterase 1+ H (Negative) Urine WBC (Auto) >30 H (0-5) /hpf Urine RBC (Auto) 0-4 (0-4) /hpf U Hyaline Cast (Auto) 0 (0-5) /lpf U Epithel Cells (Auto) >30 H (0-5) /lpf Urine Bacteria (Auto) Negative (Negative) PG Care Time/CCT Total # of Minutes Spent Total Time Spent with Patient: Total time spent is greater than 50% in coordination of care (as documented) at patient's floor/unit and/or counseling patient: Coding Level of Care Code 74078 Subseq Hosp Care Lvl 2 Diagnoses SBO (small bowel obstruction) K56.609 Abdominal pain with vomiting R10.9; R11.10 Elevated liver enzymes R74.8 Anxiety F41.9 Allergic rhinitis J30.9 Dyslipidemia E78.5 Hepatic steatosis K76.0
[2021-07-08] MEDS: LACTATED RINGER'S 1,000 ML IV SCH ×2 (04:21→13:51)
[2021-07-08 06:11] LABS: Basophils # (auto) 0.03 K/uL (0-0.2); Basophils % (auto) 0.5 %; Eosinophils % (auto) 3.6 %; Hematocrit (blood only) 41.5 % (37-47); Immature Granulocytes # (auto) 0.01 K/uL (0.00-0.02); Immature Granulocytes % (auto) 0.2 %; Lymphocytes # (auto) 2.29 K/uL (1.2-3.4); Lymphocytes % (auto) 40.8 %; Mean Corpuscular Hemoglobin 28.8 pg (25-34); Mean Corpuscular Hgb Conc 31.3 g/dL (32-36); Mean Corpuscular Volume 91.8 fL (80-100); Mean Platelet Volume 9.7 fL (7.4-10.4); Monocytes % (auto) 7.1 %; Neutrophils # (auto) 2.68 K/uL (1.4-6.5); Neutrophils % (auto) 47.8 %; Platelet Count 240 K/uL (130-400); RDW Coefficient of Variation 13.3 % (11.5-14.5); RDW Standard Deviation 44.7 fL (36.4-46.3); Red Blood Count 4.52 M/uL (4.2-5.4); White Blood Count 5.61 K/uL (4.8-10.8)
[2021-07-08 06:52] LABS: BUN Creatinine Ratio 14.7 (10-20); Bilirubin,Total 0.6 mg/dl (0.2-1.0); Calcium 8.6 mg/dl (8.5-10.1); Chol HDL Ratio 7.5 (0-5); Est GFR (African American) 116.6 ml/min; Est GFR (Non-African American) 100.6 ml/min; Ferritin 141.1 ng/ml (8-388); Magnesium 1.9 mg/dl (1.7-2.4); Potassium 3.7 mmol/L (3.5-5.1); Total Protein 6.7 gm/dl (6.0-8.3)
[2021-07-08 07:42] LABS: Phosphorus 2.9 mg/dl (2.5-4.9)
[2021-07-08 07:55] LABS: Estimated Average Glucose 114 mg/dl; Hemoglobin A1C 5.6 % (4.5-5.6)
--- NOTE | 2021-07-08 09:10 | Fluoroscopy Report ---
[place] small bowel follow through CLINICAL HISTORY: Small bowel obstruction. Follow-up. COMPARISON STUDY: Abdomen and pelvis CT 07/06/2021. FLUOROSCOPY TIME: None.. FINDINGS: 4 and overhead images of the abdomen and pelvis were submitted. The patient swallowed water -soluble contrast without difficulty. Senior Water Resources Engineer images show no dilated loops of small bowel. Prior cholec ystectomy. Suture material within the right lower quadrant again noted. There is also suture material at the distal sigmoid colon. Contrast quickly reached the cecum at 20 minutes. No dilated loops of b owel to suggest an obstruction. No clear transition point at this time. Therefore, dedicated fluorosc opic spot images were not obtained. IMPRESSION: 1. Interval resolution of the small bowel obstruction. 2. Contrast quickly reached the cecum at 20 minutes. ACT 112: Negative or not required by law. Electronically signed by: Gene May M.D. 07/08/2021 9:08 AM
[2021-07-08] MEDS: FLUTICASONE PROPIONATE NA SPR 16 GM BTL SCH (09:31)
[2021-07-08] MEDS: HEPARIN SOD 5,000 UNIT/0.5 ML VIAL SQ SCH (09:31)
--- NOTE | 2021-07-08 09:46 | XRay Report ---
KUB CLINICAL HISTORY: Evaluate small bowel obstruction. COMPARISON STUDY: CT of the abdomen and pelvis July 06, 2021. KUB July 07, 2021. Small bowel follow-through performed earlier today. FINDINGS: Small bowel dilatation has resolved. Oral contrast from small bowel follow-through has pass ed. No significant abnormalities are identified within visualized skeletal structures. IMPRESSION: Resolution of the small bowel obstruction. ACT 112: Negative or not required by law. Electronically signed by: Devin Soliz M.D. 07/08/2021 9:44 AM
--- NOTE | 2021-07-08 15:18 | Surgery Progress Note ---
Date of Service July 08, 2021 Assessment & Plan (1) SBO (small bowel obstruction): Plan: Resolved SBFT study this am showed no small bowel dilatation, transition zone or evidence of closed loop obstruction. Contrast reached cecum in 20 minutes no leukocytosis, afebrile abdominal pain improved +flatus and liquid stools Plan: No surgical intervention required as SBFT study showed resolution of SBO and patient clinically improved Advanced diet to clears and now to low fiber diet Okay for discharge from surgical standpoint if tolerated low fiber diet recommend low fiber diet for 1 week at home Discussed with Dr. Nair who agrees with above. Admission and Anticipated Discharge Date Admission Date: July 06, 2021 Subjective feeling better abdominal tenderness but improved does not feel tense and firm like yesterday passing gas and the oral contrast since the study this morning tolerated clear liquids without nausea, vomiting, or abdominal pain ambulating hallway Physical Exam Constitutional: WD/WN, vitals as above no acute distress and not ill appearing Neck: normal visual inspection and trachea midline Respiratory: normal respiratory effort; no respiratory distress Gastrointestinal (Abdomen): Inspection/Auscultation: abdomen normal to inspection, + abdominal surgical scar (laparoscopic scars) and + hyperactive bowel sounds; abdomen not distended Percussion/Palpation: + abdomen tender (RLQ on deep palpation) and abdomen soft; no guarding and abdomen not rigid Skin: no rashes, warm and dry no jaundice Psychiatric: A+Ox3, euthymic affect Results & Data ([facility]) Vital Signs (Past 12 Hours) 07/08/21 07/08/21 07/08/21 Range/Units 05:47 05:47 05:47 WBC (4.8-10.8) K/uL RBC (4.2-5.4) M/uL Hgb (12.0-16.0) g/dL Hct (37-47) % MCV (80-100) fL MCH (25-34) pg MCHC (32-36) g/dL RDW Std Deviation (36.4-46.3) fL RDW Coeff of Silvia (11.5-14.5) % Plt Count (130-400) K/uL MPV (7.4-10.4) fL Immature Gran % (Auto) % Neut % (Auto) % Lymph % (Auto) % [place] % (Auto) % Eos % (Auto) % Baso % (Auto) % Neut # (Auto) (1.4-6.5) K/uL Lymph # (Auto) (1.2-3.4) K/uL [place] # (Auto) (0.11-0.59) K/uL Eos # (Auto) (0-0.5) K/uL Baso # (Auto) (0-0.2) K/uL Immature Gran # (Auto) (0.00-0.02) K/uL Sodium 135 L (136-145) mmol/L Potassium 3.7 (3.5-5.1) mmol/L Chloride 100 (98-107) mmol/L Carbon Dioxide 28 (21-32) mmol/L Anion Gap 7 (3-11) BUN 10 (6-23) mg/dl Creatinine 0.68 (0.6-1.2) mg/dl Est Cr Clr Drug Dosing 116.0 ml/min Est GFR ( Amer) 116.6 ml/min Est GFR (Non-Af Amer) 100.6 ml/min BUN/Creatinine Ratio 14.7 (10-20) Glucose 92 (70-99(Fasting)) mg/dl Estimat Average Glucose 114 mg/dl Hemoglobin A1c 5.6 (4.5-5.6) % Calcium 8.6 (8.5-10.1) mg/dl Phosphorus 2.9 (2.5-4.9) mg/dl Magnesium 1.9 (1.7-2.4) mg/dl Iron 88 (35-150) mcg/dl TIBC 334 (250-450) mcg/dl Unsaturated IBC 246 (155-355) mcg/dl Transferrin % Sat 26 (15-50) % Ferritin 141.1 (8-388) ng/ml Total Bilirubin 0.6 (0.2-1.0) mg/dl Direct Bilirubin 0.0 (0-0.2) mg/dl AST 53 H (13-39) U/L ALT 105 H (7-52) U/L Alkaline Phosphatase 82 (34-104) U/L Total Protein 6.7 (6.0-8.3) gm/dl Albumin 4.0 (3.4-5.0) gm/dl Triglycerides 308 H (0-150) mg/dl Cholesterol 233 H (0-200) mg/dl LDL Cholesterol, Calc 140 mg/dl VLDL Cholesterol, Calc 62 H (0-30) mg/dl HDL Cholesterol 31 mg/dl Cholesterol/HDL Ratio 7.5 H (0-5) 07/08/21 Range/Units 05:47 WBC 5.61 (4.8-10.8) K/uL RBC 4.52 (4.2-5.4) M/uL Hgb 13.0 (12.0-16.0) g/dL Hct 41.5 (37-47) % MCV 91.8 (80-100) fL MCH 28.8 (25-34) pg MCHC 31.3 L (32-36) g/dL RDW Std Deviation 44.7 (36.4-46.3) fL RDW Coeff of Silvia 13.3 (11.5-14.5) % Plt Count 240 (130-400) K/uL MPV 9.7 (7.4-10.4) fL Immature Gran % (Auto) 0.2 % Neut % (Auto) 47.8 % Lymph % (Auto) 40.8 % [place] % (Auto) 7.1 % Eos % (Auto) 3.6 % Baso % (Auto) 0.5 % Neut # (Auto) 2.68 (1.4-6.5) K/uL Lymph # (Auto) 2.29 (1.2-3.4) K/uL [place] # (Auto) 0.40 (0.11-0.59) K/uL Eos # (Auto) 0.20 (0-0.5) K/uL Baso # (Auto) 0.03 (0-0.2) K/uL Immature Gran # (Auto) 0.01 (0.00-0.02) K/uL Sodium (136-145) mmol/L Potassium (3.5-5.1) mmol/L Chloride (98-107) mmol/L Carbon Dioxide (21-32) mmol/L Anion Gap (3-11) BUN (6-23) mg/dl Creatinine (0.6-1.2) mg/dl Est Cr Clr Drug Dosing ml/min Est GFR ( Amer) ml/min Est GFR (Non-Af Amer) ml/min BUN/Creatinine Ratio (10-20) Glucose (70-99(Fasting)) mg/dl Estimat Average Glucose mg/dl Hemoglobin A1c (4.5-5.6) % Calcium (8.5-10.1) mg/dl Phosphorus (2.5-4.9) mg/dl Magnesium (1.7-2.4) mg/dl Iron (35-150) mcg/dl TIBC (250-450) mcg/dl Unsaturated IBC (155-355) mcg/dl Transferrin % Sat (15-50) % Ferritin (8-388) ng/ml Total Bilirubin (0.2-1.0) mg/dl Direct Bilirubin (0-0.2) mg/dl AST (13-39) U/L ALT (7-52) U/L Alkaline Phosphatase (34-104) U/L Total Protein (6.0-8.3) gm/dl Albumin (3.4-5.0) gm/dl Triglycerides (0-150) mg/dl Cholesterol (0-200) mg/dl LDL Cholesterol, Calc mg/dl VLDL Cholesterol, Calc (0-30) mg/dl HDL Cholesterol mg/dl Cholesterol/HDL Ratio (0-5) Diagnostic Findings [place] small bowel follow through CLINICAL HISTORY: Small bowel obstruction. Follow-up. COMPARISON STUDY: Abdomen and pelvis CT 07/06/2021. FLUOROSCOPY TIME: None.. FINDINGS: 4 and overhead images of the abdomen and pelvis were submitted. The patient swallowed water-soluble contrast without difficulty. Behavioral Science Chair images show no dilated loops of small bowel. Prior cholecystectomy. Suture material within the right lower quadrant again noted. There is also suture material at the distal sigmoid colon. Contrast quickly reached the cecum at 20 minutes. No dilated loops of bowel to suggest an obstruction. No clear transition point at this time. Therefore, dedicated fluoroscopic spot images were not obtained. IMPRESSION: 1. Interval resolution of the small bowel obstruction. 2. Contrast quickly reached the cecum at 20 minutes.
--- NOTE | 2021-07-08 18:44 | Discharge Summary ---
Date of Service July 08, 2021 Discharge Exam Constitutional WD/WN, vitals as above Eyes + anicteric sclerae ENMT external ear and nose normal, oropharynx normal Neck trachea midline, no thyromegaly Respiratory normal respiratory effort, lungs clear to auscultation Cardiovascular RRR, no murmur, no edema Chest (Breasts) Chest: normal inspection of chest Gastrointestinal (Abdomen) Inspection/Auscultation: normal bowel sounds; + abdomen abnormal to inspection (multiple surgical scars) Percussion/Palpation: + abdomen tender (in LLQ without guarding or rebound) and abdomen soft Musculoskeletal Extremities: extremities normal to inspection; no cyanosis and no clubbing Skin no rashes, warm and dry Neurologic moves all extremities and awake; no focal motor deficits Psychiatric A+Ox3, euthymic affect Lymphatic no lymphedema Discharge Data Allergies Allergy/AdvReac Type Severity Reaction Status Date / Time adhesive AdvReac Unknown skin rash, Verified 07/06/21 08:56 and sore Consultations 07/06/21 07:38 ED Decision to Admit Stat 07/06/21 08:34 Consult General Surgery Stat Ordered Studies 07/06/21 05:00 CT abd pelvis IV con only Stat 07/08/21 08:15 [place] small bowel follow through Routine Hospital Course (1) SBO (small bowel obstruction): SBO with possible closed loop obstruction. With a h/o numerous bowel surgeries, likely adhesive disease as cause Improving. NGT unable to be placed Now passing flatus, stools on 07/07 Lactate normal, WBC count normalized Still with some +TTP LLQ, no nausea - General Surgery Consultation - appreciate -continue IVFs -pain control prn -had a cup of coffee on 07/07 but otherwise is to remain NPO -plan for SBFT tomorrow and if improving, adv diet -follow CBC, CMP, Mag, phos (2) Abdominal pain with vomiting: Secondary to SBO Now resolved lyte abnormalities now improved continue IVFs (3) Elevated liver enzymes: With normal bilirubin, normal lipase, patient has history of cholec ystectomy Has severely fatty liver on CT abd/pel Also notes a +FH of Father with HH LFTs trending downward today Counseled on importance of low carb diet, weight loss, and following up with PCP or GI for liver. Should also consider HH testing check Fe studies in AM (4) Anxiety: Chronic - as she is NPO hold escitalopram and Alprazolam -low risk for withdrawal from Lexapro - Ativan 0.5 mg q12 prn - follow (5) Allergic rhinitis: Chronic with frequent sinus infections - Has followed with ENT in the past [facility] septoplasty - Flonase 1spra daily with NGT in - can increase to BID - Can consider saline spray if needed - Hold Loratadine - Hold Benadryl (6) Dyslipidemia: Hold fish oil check lipids in AM has h/o severe fatty liver and elevated cholesterol without treatment (7) Hepatic steatosis: as above check HgbA1C in AM encouraged weight loss, low carb diet VTE Prophylaxis - heparin 5000 units Q12H Dispo-continued stay, possible dc to [facility] 1-2 days if continues to improve Discharge Plan Discharge Items Patient Disposition: Home - Self-Care Reason For Visit: SBO,NAUSEA/VOMITTING Discharge Diagnosis: Small bowel obstruction Condition on Discharge: Good Activity: Resume your previous activity Non-emergency contact: Primary Care Provider Call non-emergency contact if: your symptoms worsen, your pain is not controlled, your pain is worsening and you have a fever Follow-up/Referrals: Milton Arguelles III, CRNP [Primary Care Provider] - (Follow up within 1-2 weeks.) Diet: Heart Healthy and Low Fiber Addtl Attending Provider Instructions: You were admitted for a recurrent small bowel obstruction which resolved on its own. Please stick to a low fiber diet. Your cholesterol was checked and is quite high. You were also screened for diabetes and you do not have diabetes at this time. Because of your fatty liver, you should follow up with your PCP to discuss treatment of your cholesterol as well as weight loss and a low carbohydrate diet. Exercise can also help with weight loss. I also screened you for elevated iron levels which can be associated with hemochromatosis and they were normal. Please follow up with your PCP to see if you should have genetic testing given your family history of such. Pending Studies at Discharge: No Stand-Alone Forms: My [facility], Smoking Cessation Medications and DC Order Prescriptions: Continued doxycycline hyclate 50 mg capsule 50 mg PO HS Qty: 90 RF: 3 multivitamin tablet 1 tab PO QAM RF: 0 loratadine [Claritin] 10 mg tablet 10 mg PO QAM RF: 0 diphenhydramine HCl [Benadryl] 25 mg Capsule 25 mg PO HS RF: 0 escitalopram oxalate 10 mg tablet 10 mg PO QAM RF: 0 biotin 1 mg Capsule 1 mg PO QAM RF: 0 flaxseed oil 1,000 mg Capsule 0 mg PO HS RF: 0 [place] 3-6-9 1,200 mg Capsule 1 cap PO QAM RF: 0 alprazolam 0.5 mg tablet See Rx Instructions .ROUTE .COMPLEX PRN (Reason: Anxiety) RF: 0 Discharge Orders: Discharge Order (Routine); Ordered 07/08/21 Ordered By: Alondra Butler Admission Data Admit Date/Time: 07/06/21 10:41 Attending Provider: Alondra Butler Admit Provider: Uday Arambula Primary Care Provider: Milton Arguelles III Other Providers: Negrito Watson ; Felipe Nair Coding Diagnoses SBO (small bowel obstruction) K56.609 Abdominal pain with vomiting R10.9; R11.10 Elevated liver enzymes R74.8 Anxiety F41.9 Allergic rhinitis J30.9 Dyslipidemia E78.5 Hepatic steatosis K76.0
== END 2021-07-08 19:40 | disposition home or self-care (01) | DRG 390 ==
LOC: ED 04:39 → SUATTDRO 10:41 → 3W 10:41